=== PATIENT | male | born 1990 | race Caucasian/White ===

== ENCOUNTER 2016-06-15 21:59 | Emergency (ER) ==
[2016-06-15 21:59] VITALS: BMI 21.5
[2016-06-15 22:08] VITALS: BP 158/80; TEMP 99.3
[2016-06-15] MEDS ORDERED: ZOFRAN 4 MG/2 ML IM STA (22:22)
[2016-06-15] MEDS ORDERED: DILAUDID 1 MG/ML SYRINGE IM STA (22:22)
--- NOTE | 2016-06-15 22:25 | ED.PDOC ---
General ED Provider: Dr. CLAUDY NAVAS Chief Complaint: Headache Stated Complaint: Broken fron tooth couple days ago, started the headache, typical. Time Seen by Physician: 22:23 Mode of Arrival: Walk-In Information Source: Patient, Family Primary Care Provider: BRIAN ARREDONDO Nursing and Triage Documentation Reviewed and Agree: Yes Neurological Complaint Exam - Headache Complaint/Exam Onset: Gradual Symptoms Are: Still present Timing: Constant Worst Headache Ever: No Initial Severity: Moderate Current Severity: Moderate Location: Frontal Character: Reports: Throbbing, Radiating, Migraine Aggravating: Reports: Bright lights Alleviating: Reports: None Associated Signs and Symptoms: Denies: Dizziness, Seizure, Nausea, Vomiting, Sinus pressure, Fever, Neck pain, Neck stiffness, Decreased LOC, Visual changes Related History: Reports: Similar episode Related Surgical History: Reports: None SAH Risk Factors: Reports: None Meningitis Risk Factors: Reports: None SDH Risk Factors: Reports: None Temporal Arteritis Risk Factors: Reports: None Normal Head CT Within Last 12 Months: Yes Fundoscopic Exam: Present: Normal Findings Papilledema Present: No Temporal Artery Tenderness: Present: None Sinus Tenderness: Present: None TMJ Tenderness: Present: None Meningeal Signs Positive: No Pain on Passive Flexion-Positive Kernig's: No ROM Limited In: No Limitiations Focal Weakness: Present: None Focal Sensory Loss: Present: None Gait: Normal Nystagmus Present: No Gag Reflex Present: Yes [id number]: Normal Findings Romberg Test Positive: No Differential Diagnoses: Migraine Review of Systems - Review Of Systems Constitutional: Reports: No symptoms Eyes: Reports: No symptoms Ears, Nose, Mouth, Throat: Reports: No symptoms Respiratory: Reports: No symptoms Cardiac: Reports: No symptoms GI: Reports: No symptoms : Reports: No symptoms Musculoskeletal: Reports: No symptoms Skin: Reports: No symptoms Neurological: Reports: Headache Endocrine: Reports: No symptoms Hematologic/Lymphatic: Reports: No symptoms All Other Systems: Reviewed and Negative Past Medical History - Past Medical History Previously Healthy: Yes Endocrine: Reports: None Cardiovascular: Reports: None Respiratory: Reports: None Hematological: Reports: None Gastrointestinal: Reports: Other ( ulcerative colitis) Genitourinary: Reports: None Neuro/Psych: Reports: Migraine Musculoskeletal: Reports: None, Other (back problems,) Cancer: Reports: None Other Pertinent Past Medical History: adderall, back problems, ulcerative colitis - Surgical History General Surgical History: Reports: None - Family History Family History: Reports: None - Social History Smoking Status: Current every day smoker, Heavy tobacco smoker Hx Substance Use: No Alcohol Screening: Occasionally - Immunizations Tetanus Shot up to Date: Yes Physical Exam - Physical Exam Appearance: Ill-appearing Pain Distress: Moderate Eyes: EMMY, EOMI ENT: Ears normal, Nose normal, Oropharynx normal Respiratory: Airway patent, Breath sounds clear, Breath sounds equal, Respirations nonlabored Cardiovascular: RRR, Pulses normal, No rub, No murmur GI/: Soft, Nontender, No masses, Bowel sounds normal, No Organomegaly Musculoskeletal: Normal strength, ROM intact, No edema, No calf tenderness Skin: Warm, Dry, Normal color Neurological: Sensation intact, Motor intact, Reflexes intact, Cranial nerves intact, Alert, Oriented Psychiatric: Affect appropriate, Mood appropriate Critical Care Note - Critical Care Note Total Time (mins): 0 Course - Course Orders, Labs, Meds: Orders Category Date Time Status Hydromorphone HCl [Dilaudid 1 mg/ml Syringe] MEDS 06/15/16 22:22 Discontinued 1 mg IM ONCE STA Ondansetron HCl/Pf [Zofran 4 mg/2 ml] MEDS 06/15/16 22:22 Discontinued 4 mg IM ONCE STA Medications Discontinued Medications Generic Name Dose Route Start Last Admin Trade Name [place] PRN Reason Stop Dose Admin Hydromorphone HCl 1 mg 06/15/16 22:22 Dilaudid 1 Mg/Ml Syringe IM 06/15/16 22:23 ONCE STA Ondansetron HCl 4 mg 06/15/16 22:22 Zofran 4 Mg/2 Ml IM 06/15/16 22:23 ONCE STA Vital Signs: Temp Pulse Resp BP Pulse Ox 06/15/16 22:00 99.3 F 96 H 18 158/80 H 99 Departure - Departure Time of Disposition: 22:50 Disposition: HOME SELF-CARE Discharge Problem: Headache Instructions: Migraine Headache (ED) Condition: Stable Pt referred to PMD for follow-up: Yes Additional Instructions: keep f/u with neurologist rest If not better come back Allergies/Adverse Reactions: Allergies codeine Adverse Reaction (Verified 06/15/16 22:09) FEELS LIKE NEEDLES IN BACK OF NECK tramadol HCl [From [facility]] Adverse Reaction (Verified 01/03/16 13:54) Nausea Home Medications: Ambulatory Orders 1 [No Reported Medications] 06/15/16 Disposition Discussed With: Patient, Family
== END 2016-06-15 22:55 | disposition home or self-care (01) ==
LOC: ED 21:59
DX: G43.909 Migraine, unspecified, not intractable, without status migrainosus (principal); S02.5XXA Fracture of tooth (traumatic), initial encounter for closed fracture; F17.210 Nicotine dependence, cigarettes, uncomplicated
CPT/HCPCS: 96372; 99283

== ENCOUNTER 2016-06-16 14:32 | Emergency (ER) ==
[2016-06-16 14:32] VITALS: BMI 21.5
[2016-06-16 14:37] VITALS: BP 144/103; TEMP 99.2
--- NOTE | 2016-06-16 14:38 | ED.PDOC ---
General ED Provider: Dr. BRIONNA LR Chief Complaint: Tooth Problem Stated Complaint: dental pain Time Seen by Physician: 14:33 Mode of Arrival: Walk-In Information Source: Patient Exam Limitations: No limitations Primary Care Provider: BRIAN ARREDONDO Nursing and Triage Documentation Reviewed and Agree: Yes EENT Complaint Exam - Dental/Oral Complaint/Exam Mechanism of Injury: No known trauma Symptoms Are: Still present Timing: Intermittent Initial Severity: Moderate Current Severity: Moderate Character: Reports: Throbbing Aggravating: Reports: Heat, Cold, Chewing Alleviating: Reports: None Associated Signs and Symptoms: Denies: Swelling, Discharge, Fever, Foul odor, Foul taste in mouth Related History: Reports: Similar episode Cardiac Risk Factors: Reports: None Dental/Oral Surgical History: Reports: None Tooth Findings: Present: Gross caries, Dental fracture Cervical Lymphadenopathy Present: No Facial Swelling Present: No Bleeding Present: No Septal Hematoma: No Foreign Body Present: No Dysphagia Present: No Drooling Present: No Asymmetrical Tonsillar Swelling Present: No Uvula Midline: No Judy-tonsillar Fluctuence: No Trismus Present: No Palatal Petechiae Present: No Scarlatinaform Rash Present: No Teeth Picture: 1 - broken Review of Systems - Review Of Systems Constitutional: Reports: No symptoms Eyes: Reports: No symptoms Ears, Nose, Mouth, Throat: Reports: No symptoms Respiratory: Reports: No symptoms Cardiac: Reports: No symptoms GI: Reports: No symptoms : Reports: No symptoms Musculoskeletal: Reports: No symptoms Skin: Reports: No symptoms Neurological: Reports: No symptoms Endocrine: Reports: No symptoms Hematologic/Lymphatic: Reports: No symptoms All Other Systems: Reviewed and Negative Past Medical History - Past Medical History Previously Healthy: Yes Endocrine: Reports: None Cardiovascular: Reports: None Respiratory: Reports: None Hematological: Reports: None Gastrointestinal: Reports: Other ( ulcerative colitis) Genitourinary: Reports: None Neuro/Psych: Reports: Migraine Musculoskeletal: Reports: None, Other (back problems,) Cancer: Reports: None Other Pertinent Past Medical History: adderall, back problems, ulcerative colitis - Surgical History General Surgical History: Reports: None - Family History Family History: Reports: None - Social History Smoking Status: Current every day smoker, Heavy tobacco smoker Hx Substance Use: No Alcohol Screening: Occasionally Physical Exam - Physical Exam Appearance: Well-appearing, No pain distress, Well-nourished Eyes: EMMY, EOMI, Conjunctiva clear ENT: Ears normal, Nose normal, Oropharynx normal Respiratory: Airway patent, Breath sounds clear, Breath sounds equal, Respirations nonlabored Cardiovascular: RRR, Pulses normal, No rub, No murmur GI/: Soft, Nontender, No masses, Bowel sounds normal, No Organomegaly Musculoskeletal: Normal strength, ROM intact, No edema, No calf tenderness Skin: Warm, Dry, Normal color Neurological: Sensation intact, Motor intact, Reflexes intact, Cranial nerves intact, Alert, Oriented Psychiatric: Affect appropriate, Mood appropriate Critical Care Note - Critical Care Note Total Time (mins): 0 Course - Course Vital Signs: Temp Pulse Resp BP Pulse Ox 06/16/16 14:33 99.2 F 89 20 144/103 H 98 Departure - Departure Time of Disposition: 14:38 Disposition: HOME SELF-CARE Discharge Problem: Toothache Instructions: Toothache (ED), Dental Caries (ED) Condition: Good Pt referred to PMD for follow-up: No Allergies/Adverse Reactions: Allergies codeine Adverse Reaction (Verified 06/16/16 14:36) FEELS LIKE NEEDLES IN BACK OF NECK tramadol HCl [From [facility]] Adverse Reaction (Verified 06/16/16 14:36) Nausea Home Medications: Ambulatory Orders 1 [No Reported Medications] 06/15/16
== END 2016-06-16 14:44 | disposition home or self-care (01) ==
LOC: ED 14:32
DX: K08.89 Other specified disorders of teeth and supporting structures (principal); K02.7 Dental root caries; S02.5XXA Fracture of tooth (traumatic), initial encounter for closed fracture; F17.210 Nicotine dependence, cigarettes, uncomplicated
CPT/HCPCS: 99282

== ENCOUNTER 2016-07-25 18:23 | Emergency (ER) ==
[2016-07-25 18:32] VITALS: BP 128/82; TEMP 98.6; BMI 22.6
--- NOTE | 2016-07-25 18:44 | ED.PDOC ---
General ED Provider: Dr. VIKA KAUR JR Chief Complaint: Fever Stated Complaint: onset fever and body aches--cough-some n/v--has left ear pain- -states has been sleeping a lot[ End ]2 days 98.6 95 20 98% 128/82 510 Time Seen by Physician: 18:52 Mode of Arrival: Walk-In Information Source: Patient Exam Limitations: No limitations Nursing and Triage Documentation Reviewed and Agree: No Review of Systems - Review Of Systems Constitutional: Reports: Fever, Malaise, Weakness Eyes: Reports: No symptoms Respiratory: Reports: Cough Cardiac: Reports: No symptoms GI: Reports: No symptoms : Reports: No symptoms Musculoskeletal: Reports: Joint pain (right ankle pain for weeks - xrayed at [facility]- defer to pmd), Muscle pain, Muscle stiffness Skin: Reports: No symptoms Neurological: Reports: No symptoms Endocrine: Reports: No symptoms Hematologic/Lymphatic: Reports: No symptoms All Other Systems: Other Past Medical History - Past Medical History Previously Healthy: Yes Endocrine: Reports: None Cardiovascular: Reports: None Respiratory: Reports: None Hematological: Reports: None Gastrointestinal: Reports: Other ( ulcerative colitis) Genitourinary: Reports: None Neuro/Psych: Reports: Migraine, Bipolar Disorder, Other (ADHD ; adderall) Musculoskeletal: Reports: None, Arthritis, Back Pain (CHRONIC BACK PAIN ADHD bipolar arth), Other (back problems,) Cancer: Reports: None (CHRONIC BACK PAIN ) Other Pertinent Past Medical History: back problems, ulcerative colitis - Surgical History General Surgical History: Reports: None - Family History Family History: Reports: None - Social History Smoking Status: Current every day smoker, Heavy tobacco smoker Hx Substance Use: No Alcohol Screening: Occasionally Physical Exam - Physical Exam Appearance: Ill-appearing, Thin Ill-appearing: Mild Pain Distress: Mild Eyes: EMMY, EOMI, Conjunctiva clear ENT: Ears normal (normal on exam), Nose normal, Oropharynx normal Neck: Supple Respiratory: Airway patent, Breath sounds clear, Breath sounds equal, Respirations nonlabored Cardiovascular: RRR, Pulses normal, No rub, No murmur GI/: Soft, No masses, Bowel sounds normal, No Organomegaly, Tender (nonfocal) Musculoskeletal: Limited ROM (right ankle focal tenderness not likely a fracture no other tenderness) Skin: Warm, Dry, Normal color Neurological: Sensation intact, Motor intact, Reflexes intact, Cranial nerves intact, Alert, Oriented Critical Care Note - Critical Care Note Total Time (mins): 0 Course - Course Vital Signs: Temp Pulse Resp BP Pulse Ox 07/25/16 18:24 98.6 F 95 H 20 128/82 98 Departure - Departure Time of Disposition: 18:52 Disposition: HOME SELF-CARE Discharge Problem: URTI (acute upper respiratory infection) Instructions: Upper Respiratory Infection (ED), Viral Syndrome (ED) Condition: Good Pt referred to PMD for follow-up: Yes Additional Instructions: VIRAL SYNDROMES ARE NOT IMPROVED WITH ANTIBIOTICS- REST, INCREASE ORAL FLUIDS TYLENOL AND MOTRIN(OR NAPROSYN) FOR PAIN MAY USE ROBITUSSIN FOR COUGH AND RECOMMEND OVER THE COUNTER COLD AND FLU MEDICATIONS FOR SYMPTOMS RIGHT ANKLE IS TENDER AT SUPERIOR EDGE OF CALCANEUS Prescriptions: Naproxen [Naprosyn] 500 mg PO Q12HR PRN #30 tablet PRN Reason: PAIN Allergies/Adverse Reactions: Allergies codeine Adverse Reaction (Verified 07/25/16 18:30) FEELS LIKE NEEDLES IN BACK OF NECK tramadol HCl [From [facility]] Adverse Reaction (Verified 07/25/16 18:30) Nausea Home Medications: Ambulatory Orders Naproxen [Naprosyn] 500 mg PO Q12HR PRN #30 tablet 07/25/16
[2016-07-25] MEDS ORDERED: NAPROSYN PO STA (19:00)
== END 2016-07-25 19:12 | disposition home or self-care (01) ==
LOC: ED 18:23
DX: J06.9 Acute upper respiratory infection, unspecified (principal); B34.9 Viral infection, unspecified; M25.571 Pain in right ankle and joints of right foot; F17.210 Nicotine dependence, cigarettes, uncomplicated
CPT/HCPCS: 99282

== ENCOUNTER 2016-09-11 15:55 | Emergency (ER) ==
[2016-09-11 16:03] VITALS: BP 127/81; TEMP 97.3; BMI 22.9
--- NOTE | 2016-09-11 16:16 | ED.PDOC ---
General ED Provider: Dr. VIKA KAUR JR Chief Complaint: Tooth Problem Stated Complaint: tooth broke off this am eating a piece of toast [ End ] left upper incisor Time Seen by Physician: 16:13 Mode of Arrival: Walk-In Information Source: Patient Exam Limitations: No limitations Nursing and Triage Documentation Reviewed and Agree: No EENT Complaint Exam - Dental/Oral Complaint/Exam Tooth Findings: Present: Percussion tenderness, Gross decay, Gross caries, Dental fracture Cervical Lymphadenopathy Present: Yes Facial Swelling Present: No Bleeding Present: No Oropharynx Findings: Absent: Clots, Active bleeding Septal Hematoma: No Foreign Body Present: No Dysphagia Present: Yes Drooling Present: No Asymmetrical Tonsillar Swelling Present: No Uvula Midline: Yes Judy-tonsillar Fluctuence: No Trismus Present: Yes Palatal Petechiae Present: No Scarlatinaform Rash Present: No Teeth Picture: 1 - two teeth missing edge anterior incisor most recent injury- acute painful Review of Systems - Review Of Systems Constitutional: Reports: Malaise Eyes: Reports: No symptoms Ears, Nose, Mouth, Throat: Reports: Ear pain, Mouth pain, Throat pain Respiratory: Reports: Cough Cardiac: Reports: No symptoms GI: Reports: No symptoms : Reports: No symptoms Musculoskeletal: Reports: No symptoms Skin: Reports: No symptoms Neurological: Reports: No symptoms Endocrine: Reports: No symptoms Hematologic/Lymphatic: Reports: No symptoms All Other Systems: Other Past Medical History - Past Medical History Previously Healthy: Yes Endocrine: Reports: None Cardiovascular: Reports: None Respiratory: Reports: None Hematological: Reports: None Gastrointestinal: Reports: Other ( ulcerative colitis) Genitourinary: Reports: None Neuro/Psych: Reports: Migraine, Bipolar Disorder, Other (ADHD ; adderall) Musculoskeletal: Reports: None, Arthritis, Back Pain (CHRONIC BACK PAIN ), Other (back problems,) Cancer: Reports: None (CHRONIC BACK PAIN ) Other Pertinent Past Medical History: back problems, ulcerative colitis - Surgical History General Surgical History: Reports: None - Family History Family History: Reports: None - Social History Smoking Status: Current every day smoker, Heavy tobacco smoker Hx Substance Use: No Alcohol Screening: Occasionally Physical Exam - Physical Exam Appearance: Ill-appearing, Thin Pain Distress: Moderate Eyes: EMMY, EOMI, Conjunctiva clear ENT: Erythema (EAC's states cleaned with qtips) Neck: Supple (left ant LAD) Respiratory: Airway patent, Breath sounds clear, Breath sounds equal, Respirations nonlabored Cardiovascular: RRR, Pulses normal, No rub, No murmur GI/: Soft, Nontender, No masses, Bowel sounds normal, No Organomegaly Musculoskeletal: Normal strength, ROM intact, No edema, No calf tenderness Skin: Warm, Dry, Normal color Neurological: Sensation intact, Motor intact, Reflexes intact, Cranial nerves intact, Alert, Oriented Critical Care Note - Critical Care Note Total Time (mins): 0 Course - Course Vital Signs: Temp Pulse Resp BP Pulse Ox 09/11/16 15:57 97.3 F L 85 18 127/81 97 Departure - Departure Time of Disposition: 16:30 Disposition: HOME SELF-CARE Discharge Problem: Toothache, Pharyngitis, Otitis externa Instructions: Pharyngitis (ED), Acute Dental Trauma (ED), Toothache (ED), Otitis Externa (ED) Condition: Good Pt referred to PMD for follow-up: Yes Additional Instructions: do not place any objects in ears- clean with liquid such as glycerine antibiotic to clear infection at tooth and sore throat - ten days to eliminate any strep Naprosyn for pain - NSAIDS work best for tooth pain [place] for pain not controlled- no refills follow up with dentist as soon as possible Prescriptions: Hydrocodone Bit/Acetaminophen [[place] 5-325] 1 - 2 tab PO Q6HR PRN #12 tablet PRN Reason: pain Naproxen [Naprosyn] 500 mg PO Q12HR PRN #30 tablet PRN Reason: PAIN Cephalexin [Keflex] 500 mg PO QID #40 capsule Neomycin/Polymyxin B/Hc Otic [Cortisporin Otic Susp] 4 drop OT Q6H #1 bottle Allergies/Adverse Reactions: Allergies codeine Adverse Reaction (Verified 09/11/16 16:01) FEELS LIKE NEEDLES IN BACK OF NECK tramadol HCl [From [facility]] Adverse Reaction (Verified 09/11/16 16:01) Nausea Home Medications: Ambulatory Orders Cephalexin [Keflex] 500 mg PO QID #40 capsule 09/11/16 Hydrocodone Bit/Acetaminophen [[place] 5-325] 1 - 2 tab PO Q6HR PRN #12 tablet 05/18 Naproxen [Naprosyn] 500 mg PO Q12HR PRN #30 tablet 09/11/16 Neomycin/Polymyxin B/Hc Otic [Cortisporin Otic Susp] 4 drop OT Q6H #1 bottle 05/18
[2016-09-11 16:45] LABS: FLU INTERNAL QC INTERNAL QC VALID; RAPID FLU A NEGATIVE (NEGATIVE)
[2016-09-11 16:46] LABS: RAPID FLU B NEGATIVE (NEGATIVE)
== END 2016-09-11 16:42 | disposition home or self-care (01) ==
LOC: ED 15:55
DX: K08.89 Other specified disorders of teeth and supporting structures (principal); J02.9 Acute pharyngitis, unspecified; H60.90 Unspecified otitis externa, unspecified ear; K02.7 Dental root caries; F17.210 Nicotine dependence, cigarettes, uncomplicated
CPT/HCPCS: 87651; 87804; 87880; 99283

== ENCOUNTER 2016-10-13 14:06 | Emergency (ER) ==
[2016-10-13 14:12] VITALS: BP 140/95; TEMP 98.5; BMI 22.2
[2016-10-13] MEDS ORDERED: ZOFRAN 4 MG/2 ML IVP STA (14:22)
[2016-10-13] MEDS ORDERED: DEMEROL 25 MG/ML SYRINGE IVP STA (14:22)
[2016-10-13] MEDS ORDERED: SODIUM CHLORIDE 1,000 ML IV STA (14:22)
--- NOTE | 2016-10-13 14:26 | ED.PDOC ---
General ED Provider: Dr. CLAUDY NAVAS Chief Complaint: Abdominal Pain Stated Complaint: Hurting in the belly nausea, vomiting, not able to keep anything down, has h/o colitis in the past, and recetly roomate had c,diff. Time Seen by Physician: 14:23 Mode of Arrival: Walk-In Information Source: Patient Primary Care Provider: CLAUDY NAVAS-[facility] Nursing and Triage Documentation Reviewed and Agree: Yes GI Complaint Exam - Abdominal Pain Complaint/Exam Onset: Gradual Symptoms Are: Still present Timing: Constant Initial Severity: Moderate Current Severity: Moderate Location of Pain: Discrete Character: Reports: Dull, Aching Aggravating: Reports: Movement Alleviating: Reports: None Associated Signs and Symptoms: Reports: Nausea, Vomiting, Diarrhea. Denies: Diaphoresis, Fever, Cough, Chest pain, Dizziness, Back pain, Constipation, Blood in stool, Dysuria, Urinary frequency, Decreased urine output, Decreased appetite, Discharge, Decreased activity Related History: Reports: Similar episode AAA Risk Factors: Reports: None Cardiac Risk Factors: Reports: None Testicular Torsion Risk Factors: Reports: None Surgical Obstruction Risk Factors: Reports: None Related Surgical History: Reports: None Abdominal Findings: Absent: Pulsatile mass, Abdominal distention, Unequal femoral pulses Differential Diagnoses: Pancreatitis, Irritable Bowel Syndrome, Renal Colic, Other (colitis) Review of Systems - Review Of Systems Constitutional: Reports: Malaise, Weakness Eyes: Reports: No symptoms Ears, Nose, Mouth, Throat: Reports: No symptoms Respiratory: Reports: No symptoms Cardiac: Reports: No symptoms GI: Reports: Abdomen distended, Abdominal pain, Diarrhea, Vomiting : Reports: No symptoms Musculoskeletal: Reports: No symptoms Skin: Reports: No symptoms Neurological: Reports: No symptoms Endocrine: Reports: No symptoms Hematologic/Lymphatic: Reports: No symptoms All Other Systems: Reviewed and Negative Past Medical History - Past Medical History Previously Healthy: Yes Endocrine: Reports: None Cardiovascular: Reports: None Respiratory: Reports: None Hematological: Reports: None Gastrointestinal: Reports: Other ( ulcerative colitis) Genitourinary: Reports: None Neuro/Psych: Reports: Migraine, Bipolar Disorder, Other (ADHD ; adderall) Musculoskeletal: Reports: None, Arthritis, Back Pain (CHRONIC BACK PAIN ), Other (back problems,) Cancer: Reports: None (CHRONIC BACK PAIN ) Other Pertinent Past Medical History: back problems, ulcerative colitis - Surgical History General Surgical History: Reports: None - Family History Family History: Reports: None - Social History Smoking Status: Current every day smoker, Heavy tobacco smoker Smoking Cessation Counseling Time: > 10 min Hx Substance Use: No Alcohol Screening: Occasionally - Immunizations Tetanus Shot up to Date: Yes Physical Exam - Physical Exam Appearance: Ill-appearing, Well-nourished Ill-appearing: Moderate Pain Distress: Severe Eyes: EMMY, EOMI, Conjunctiva clear ENT: Ears normal, Nose normal, Oropharynx normal Respiratory: Airway patent, Breath sounds clear, Breath sounds equal, Respirations nonlabored Cardiovascular: RRR, Pulses normal, No rub, No murmur GI/: Soft, Tender, Bowel sounds hypoactive Musculoskeletal: Normal strength, ROM intact, No edema, No calf tenderness Skin: Warm, Dry, Normal color Neurological: Sensation intact, Motor intact, Reflexes intact, Cranial nerves intact, Alert, Oriented Psychiatric: Affect appropriate, Mood appropriate Interpretation - Radiology Interpretation Radiology Interpretation By: Radiologist Radiology Results: Positive Exam Interpreted: CT Scan Critical Care Note - Critical Care Note Total Time (mins): 0 Course - Course Hematology/Chemistry: 10/13/16 14:20 10/13/16 14:20 Orders, Labs, Meds: Lab Review 10/13/16 14:20 WBC 7.34 RBC 5.34 Hgb 15.5 Hct 45.5 MCV 85.2 MCH 29.0 MCHC 34.1 RDW Coeff of Gerard 12.3 Plt Count 285 Immature Gran % (Auto) 0.3 Neut % (Auto) 62.9 Lymph % (Auto) 29.3 [place] % (Auto) 6.0 Eos % (Auto) 0.5 Baso % (Auto) 1.0 Immature Gran # (Auto) 0.0 Neut # 4.6 Lymph # 2.2 [place]haw # 0.4 Eos # 0.0 Baso # 0.1 Sodium 140 Potassium 3.7 Chloride 106 Carbon Dioxide 25 Anion Gap 12.7 BUN 9 Creatinine 1.04 Estimated GFR (MDRD) 86.00 BUN/Creatinine Ratio 8.65 Glucose 87 Calcium 9.3 Total Bilirubin 0.71 AST 20 ALT 15 Alkaline Phosphatase 98 Total Protein 6.9 Albumin 4.0 Globulin 2.9 Albumin/Globulin Ratio 1.38 Amylase 63 Lipase 10 Orders Category Date Time Status ED IV/MEDIPORT/POWERPORT .ONCE EMERGENCY 10/13/16 14:22 Active AMYLASE Stat LAB 10/13/16 14:20 Completed CBC W/ AUTO DIFF Stat LAB 10/13/16 14:20 Completed COMPREHENSIVE METABOLIC PANEL Stat LAB 10/13/16 14:20 Completed LIPASE Stat LAB 10/13/16 14:20 Completed 0.9 % Sodium Chloride [Saline Flush] MEDS 10/13/16 14:22 Ordered 1 syr IVF PRN PRN Meperidine HCl/Pf [Demerol 25 mg/ml Syringe] MEDS 10/13/16 14:22 Discontinued 25 mg IVP ONCE STA Ondansetron HCl/Pf [Zofran 4 mg/2 ml] MEDS 10/13/16 14:22 Discontinued 4 mg IVP ONCE STA Sodium Chloride 0.9% [Sodium Chloride] 1,000 ml MEDS 10/13/16 14:22 Active IV 125 mls/hr Tamsulosin HCl [Flomax] MEDS 10/13/16 15:30 Discontinued 0.4 mg PO ONCE STA CT ABDOMEN/PELVIS WO CONTRAST Stat RADS 10/13/16 14:22 Completed Medications Generic Name Dose Route Start Last Admin Trade Name Freq PRN Reason Stop Dose Admin Sodium Chloride 1,000 mls @ 125 mls/hr 10/13/16 14:22 10/13/16 14:36 Sodium Chloride IV 10/13/16 22:21 125 mls/hr .Q8H STA Administration Sodium Chloride 1 syr 10/13/16 14:22 10/13/16 14:36 Saline Flush IVF 1 syr PRN PRN Administration To flush IV Discontinued Medications Generic Name Dose Route Start Last Admin Trade Name Freq PRN Reason Stop Dose Admin Meperidine HCl 25 mg 10/13/16 14:22 10/13/16 14:36 Demerol 25 Mg/Ml Syringe IVP 10/13/16 14:23 25 mg ONCE STA Administration Ondansetron HCl 4 mg 10/13/16 14:22 10/13/16 14:36 Zofran 4 Mg/2 Ml IVP 10/13/16 14:23 4 mg ONCE STA Administration Tamsulosin HCl 0.4 mg 10/13/16 15:30 Flomax PO 10/13/16 15:31 ONCE STA Vital Signs: Temp Pulse Resp BP Pulse Ox 10/13/16 14:07 98.5 F 104 H 18 140/95 H 96 Departure - Departure Time of Disposition: 15:41 Disposition: HOME SELF-CARE Discharge Problem: Urolithiasis Qualifiers: Urinary calculus location: ureter Qualifier Code: (N20.1) Calculus of ureter Instructions: Renal Colic (ED) Condition: Stable Pt referred to PMD for follow-up: Yes Additional Instructions: Increase hydration Tylenol prn Prescriptions: Hydrocodone/Acetaminophen [[place] 5-325 Tablet] 1 tab PO TID PRN #12 tablet PRN Reason: PAIN Tamsulosin HCl [Flomax] 0.4 mg PO DAILY #10 cap.er.24h Allergies/Adverse Reactions: Allergies codeine Adverse Reaction (Verified 10/13/16 14:12) FEELS LIKE NEEDLES IN BACK OF NECK tramadol HCl [From [facility]] Adverse Reaction (Verified 10/13/16 14:12) Nausea Home Medications: Ambulatory Orders Hydrocodone/Acetaminophen [[place] 5-325 Tablet] 1 tab PO TID PRN #12 tablet 10/13 Tamsulosin HCl [Flomax] 0.4 mg PO DAILY #10 cap.er.24h 10/13/16 Disposition Discussed With: Patient, Family
[2016-10-13 14:32] LABS: BASOPHILS # (AUTO) 0.1 K/uL (0-0.2); EOSINOPHILS % (AUTO) 0.5 % (0.0-7.0); HEMATOCRIT 45.5 % (42.0-52.0); HEMOGLOBIN 15.5 g/dl (14.0-18.0); IMMATURE GRANULOCYTE % (AUTO) 0.3 % (0.0-5.0); LYMPHOCYTES # (AUTO) 2.2 K/uL (0.60-3.4); LYMPHOCYTES % (AUTO) 29.3 (10.0-50.0); MEAN CORPUSCULAR HGB CONC 34.1 (31.8-35.4); MEAN CORPUSCULAR VOLUME 85.2 fl (80.0-94.0); MONOCYTES # (AUTO) 0.4 K/uL (0.4-2.0); NEUTROPHILS # (AUTO) 4.6 K/ul (2.0-6.9); NEUTROPHILS % (AUTO) 62.9; PLATELET COUNT 285 10^3/uL (140-440); RED BLOOD COUNT 5.34 10^6/ul (4.70-6.10); WHITE BLOOD COUNT 7.34 K/ul (4.2-10.2)
[2016-10-13 14:52] LABS: ALBUMIN/GLOBULIN RATIO 1.38; ANION GAP 12.7; BILIRUBIN,TOTAL 0.71 mg/dL (0.00-1.20); BUN/CREATININE RATIO 8.65; CALCIUM 9.3 mg/dL (8.2-10.2); CREATININE 1.04 mg/dL (0.60-1.10); POTASSIUM 3.7 mmol/L (3.5-5.1); TOTAL PROTEIN 6.9 g/dL (6.4-8.2)
--- NOTE | 2016-10-13 15:24 | CT ---
EXAM: CT of the abdomen and pelvis without contrast. HISTORY: Abdominal pain. Diarrhea. Vomiting. PROCEDURE: Contiguous axial CT images of the abdomen and pelvis without contrast with coronal and s agittal reformats. FINDINGS: The liver, gallbladder, pancreas, spleen, adrenal glands and kidneys are normal in appeara nce. There is a 0.2 cm calcification in the proximal right ureter. No hydronephrosis or hydroureter . The abdominal aorta is normal in appearance. The appendix is normal in appearance. There is dive rticulosis of the colon with no evidence of diverticulitis. No free fluid or free air in the abdome n or pelvis. The bladder is adequately filled with no abnormality identified. The seminal vesicles and prostate gland are unremarkable. The bones and soft tissues are unremarkable. Impression: Right ureterolithiasis as described. No hydronephrosis or hydroureter.
[2016-10-13] MEDS ORDERED: FLOMAX PO STA (15:30)
== END 2016-10-13 15:50 | disposition home or self-care (01) ==
LOC: ED 14:06
DX: N20.1 Calculus of ureter (principal); F17.210 Nicotine dependence, cigarettes, uncomplicated
CPT/HCPCS: 36415; 80053; 82150; 83690; 85025; 96361; 96374; 96375; 99283

== ENCOUNTER 2016-10-26 15:14 | Emergency (ER) ==
[2016-10-26 15:20] VITALS: BP 135/79; TEMP 97.5; BMI 22.3
[2016-10-26 15:56] LABS: BILIRUBIN,URINE Negative (NEGATIVE); KETONES,URINE Negative (NEGATIVE); LEUKOCYTE ESTERASE ,URINE Negative (NEGATIVE); NITRITE,URINE Negative (NEGATIVE); PH,URINE 8.5 (5-9); PROTEIN,URINE Negative (NEGATIVE); URINE, BLOOD Negative (NEGATIVE)
[2016-10-26 15:57] LABS: ADD URINE MICROSCOPIC NO
[2016-10-26] MEDS: TORADOL IM STA (16:08)
[2016-10-26] MEDS: ZOFRAN 4 MG/2 ML IM STA (16:09)
--- NOTE | 2016-10-26 16:16 | CT ---
EXAM: CT scan of the abdomen and pelvis without contrast HISTORY: Bilateral flank pain, previous history of kidney stone. TECHNIQUE: Imaging of the abdomen pelvis was performed without contrast. 3 mm thin axial images an d coronal and sagittal reconstructions were provided for interpretation. Comparison CT scan of the abdomen and pelvis dated 10/13/2016. FINDINGS: The liver, spleen, pancreas, adrenal glands appear normal. The proximal ureters are norm al size. No ureteral calcifications are seen. The previously noted proximal right ureteral calculus is no longer seen. There is a tiny nonobstructing calculus seen within the inferior pole of the righ t kidney. The small and large bowel loops are normal caliber. There is no free air. No acute abno rmalities are seen within the anterior abdominal wall. The appendix appears normal. The helical images obtained through the pelvis demonstrate a normal appearance of the rectum, urinar y bladder. There is no free fluid seen within the pelvis. No retroperitoneal abnormalities are see n. Lung bases are clear. No lytic or blastic lesions are seen within the osseous structures. IMPRESSION: There is no obstructing ureteral calculi. There is no bowel obstruction or acute inflammatory change seen within the abdomen and pelvis.
--- NOTE | 2016-10-26 16:43 | ED.PDOC ---
General ED Provider: Dr. CLAUDY NAVAS Chief Complaint: Back Pain Stated Complaint: Been hurting in the rt side of the abdomen, was here 10 days ago, found to have renal stones. says he did not pass, it. has f/u with urologist next week Time Seen by Physician: 16:41 Mode of Arrival: Walk-In Information Source: Patient Nursing and Triage Documentation Reviewed and Agree: Yes GI Complaint Exam - Abdominal Pain Complaint/Exam Onset: Gradual Symptoms Are: Still present Timing: Constant Initial Severity: Moderate Current Severity: Moderate Location of Pain: Discrete, RLQ Radiates To: Reports: Back, Flank Character: Reports: Dull, Aching Aggravating: Reports: None Alleviating: Reports: None Associated Signs and Symptoms: Reports: Nausea. Denies: Diaphoresis, Fever, Cough, Chest pain, Dizziness, Back pain, Constipation, Blood in stool, Dysuria, Urinary frequency, Decreased urine output, Decreased appetite, Discharge, Vomiting, Diarrhea, Decreased activity Related History: Reports: Similar episode AAA Risk Factors: Reports: None Cardiac Risk Factors: Reports: None Testicular Torsion Risk Factors: Reports: None Surgical Obstruction Risk Factors: Reports: None Related Surgical History: Reports: None Abdominal Findings: Absent: Pulsatile mass, Abdominal distention, Unequal femoral pulses, Rebound tenderness Differential Diagnoses: Renal Colic Review of Systems - Review Of Systems Constitutional: Reports: No symptoms Eyes: Reports: No symptoms Ears, Nose, Mouth, Throat: Reports: No symptoms Respiratory: Reports: No symptoms Cardiac: Reports: No symptoms : Reports: No symptoms Musculoskeletal: Reports: No symptoms Skin: Reports: No symptoms Neurological: Reports: No symptoms Endocrine: Reports: No symptoms Hematologic/Lymphatic: Reports: No symptoms All Other Systems: Reviewed and Negative Past Medical History - Past Medical History Previously Healthy: Yes Endocrine: Reports: None Cardiovascular: Reports: None Respiratory: Reports: None Hematological: Reports: None Gastrointestinal: Reports: Other ( ulcerative colitis) Genitourinary: Reports: None Neuro/Psych: Reports: Migraine, Bipolar Disorder, Other (ADHD ; adderall) Musculoskeletal: Reports: None, Arthritis, Back Pain (CHRONIC BACK PAIN ), Other (back problems,) Cancer: Reports: None (CHRONIC BACK PAIN ) Other Pertinent Past Medical History: back problems, ulcerative colitis - Surgical History General Surgical History: Reports: None - Family History Family History: Reports: None - Social History Smoking Status: Current every day smoker Smoking Cessation Counseling Time: > 3 min - 10 min Hx Substance Use: No Alcohol Screening: None - Immunizations Tetanus Shot up to Date: Yes Physical Exam - Physical Exam Appearance: Well-appearing, Well-nourished Pain Distress: Moderate Eyes: EMMY, EOMI, Conjunctiva clear ENT: Ears normal, Nose normal, Oropharynx normal Respiratory: Airway patent, Breath sounds clear, Breath sounds equal, Respirations nonlabored Cardiovascular: RRR, Pulses normal, No rub, No murmur GI/: Soft, No masses, Bowel sounds normal, No Organomegaly, Tender Musculoskeletal: Normal strength, ROM intact, No edema, No calf tenderness Skin: Warm, Dry, Normal color Neurological: Sensation intact, Motor intact, Reflexes intact, Cranial nerves intact, Alert, Oriented Psychiatric: Affect appropriate, Mood appropriate Critical Care Note - Critical Care Note Total Time (mins): 0 Course - Course Orders, Labs, Meds: Lab Review 10/26/16 15:45 Urine Color Yellow Urine Clarity Clear Urine pH 8.5 Ur Specific Tama 1.015 Urine Protein Negative Urine Glucose (UA) Negative Urine Ketones Negative Urine Blood Negative Urine Nitrite Negative Urine Bilirubin Negative Urine Urobilinogen 0.2 Ur Leukocyte Esterase Negative Orders Category Date Time Status URINALYSIS C & S IF INDICATED Stat LAB 10/26/16 15:45 Completed Ketorolac Tromethamine [Toradol] MEDS 10/26/16 15:59 Discontinued 60 mg IM ONCE STA Ondansetron HCl/Pf [Zofran 4 mg/2 ml] MEDS 10/26/16 15:59 Discontinued 4 mg IM ONCE STA CT ABDOMEN/PELVIS WO CONTRAST Stat RADS 10/26/16 15:48 Completed Medications Discontinued Medications Generic Name Dose Route Start Last Admin Trade Name Freq PRN Reason Stop Dose Admin Ketorolac Tromethamine 60 mg 10/26/16 15:59 10/26/16 16:08 Toradol IM 10/26/16 16:00 60 mg ONCE STA Administration Ondansetron HCl 4 mg 10/26/16 15:59 10/26/16 16:09 Zofran 4 Mg/2 Ml IM 10/26/16 16:00 4 mg ONCE STA Administration Vital Signs: Temp Pulse Resp BP Pulse Ox 10/26/16 15:14 97.5 F L 95 H 16 135/79 96 Departure - Departure Time of Disposition: 16:53 Disposition: HOME SELF-CARE Discharge Problem: Renal colic on right side Instructions: Renal Colic (ED) Condition: Stable Pt referred to PMD for follow-up: Yes (urologist) Additional Instructions: increase hydration keep f/u Prescriptions: Hydrocodone/Acetaminophen [[place] 5-325 Tablet] 1 tab PO TID PRN #12 tablet PRN Reason: PAIN Tamsulosin HCl [Flomax] 0.4 mg PO DAILY #10 cap.er.24h Allergies/Adverse Reactions: Allergies codeine Adverse Reaction (Verified 10/26/16 15:23) FEELS LIKE NEEDLES IN BACK OF NECK tramadol HCl [From Ultra] Adverse Reaction (Verified 10/26/16 15:23) Nausea Home Medications: Ambulatory Orders Hydrocodone/Acetaminophen [[place] 5-325 Tablet] 1 tab PO TID PRN #12 tablet 10/26 Tamsulosin HCl [Flomax] 0.4 mg PO DAILY #10 cap.er.24h 10/26/16 Disposition Discussed With: Patient, Family
== END 2016-10-26 17:04 | disposition home or self-care (01) ==
LOC: ED 15:14
DX: N20.0 Calculus of kidney (principal); R10.31 Right lower quadrant pain; R11.0 Nausea; Z87.442 Personal history of urinary calculi; M54.89 Other dorsalgia; F17.200 Nicotine dependence, unspecified, uncomplicated
CPT/HCPCS: 81001; 96372; 99283

== ENCOUNTER 2016-11-24 03:16 | Emergency (ER) ==
[2016-11-24 03:22] VITALS: BP 143/89; TEMP 97.1; BMI 21.6
[2016-11-24] MEDS ORDERED: PHENERGAN 25 MG/ML VIAL IM STA (03:38)
[2016-11-24] MEDS ORDERED: TORADOL IM STA (03:38)
[2016-11-24 04:29] LABS: ERYTHROCYTE SEDIMENTATION RATE 8 mm/hr (0-15); ESR INTERNAL QC INTERNAL QC VALID
--- NOTE | 2016-11-24 04:43 | CT ---
EXAM: CT scan brain without contrast HISTORY: Headache COMPARISON: CT scan brain 01/23/2016 FINDINGS: Contiguous axial images were obtained from the skull base to the convexities without cont rast utilizing 5-mm collimation. Sagittal and coronal reconstructions were imaged and reviewed. The ventricles and CSF spaces are within normal limits. There are no acute intracranial findings. The visualized paranasal sinuses and mastoid air cells are clear. IMPRESSION: No acute intracranial findings
[2016-11-24] MEDS ORDERED: STADOL IM STA (04:56)
--- NOTE | 2016-11-24 05:00 | ED.PDOC ---
General ED Provider: Dr. SUZI VERDIN-ER Chief Complaint: Headache Stated Complaint: margarita got a migraine Time Seen by Physician: 03:20 Mode of Arrival: Walk-In Information Source: Patient, Family Exam Limitations: No limitations Nursing and Triage Documentation Reviewed and Agree: Yes Neurological Complaint Exam - Headache Complaint/Exam Onset: Gradual Duration: several hours Symptoms Are: Still present Worst Headache Ever: No Initial Severity: Mild Current Severity: Moderate Location: Left, Frontal, Temporal Character: Reports: Dull, Throbbing, Typical headache, Migraine Aggravating: Reports: Bright lights Alleviating: Reports: None Associated Signs and Symptoms: Reports: Nausea. Denies: Dizziness, Seizure, Vomiting, Sinus pressure, Fever, Neck pain, Neck stiffness, Decreased LOC, Visual changes Related History: Reports: Similar episode. Denies: Recent trauma, Remote trauma Related Surgical History: Reports: None SAH Risk Factors: Reports: None Meningitis Risk Factors: Reports: None SDH Risk Factors: Reports: Male Temporal Arteritis Risk Factors: Reports: Normal Head CT Within Last 12 Months: No Fundoscopic Exam: Present: Normal Findings Papilledema Present: No Temporal Artery Tenderness: Present: None Sinus Tenderness: Present: None TMJ Tenderness: Present: None Glascow Coma Scale (see protocol): 15 Meningeal Signs Positive: No Pain on Passive Flexion-Positive Kernig's: No ROM Limited In: No Limitiations Focal Weakness: Present: None Focal Sensory Loss: Present: None Nystagmus Present: No Gag Reflex Present: No [id number]: Normal Findings Romberg Test Positive: No Babinski Sign: Negative Right, Negative Left Heel to Toe Normal: Yes Differential Diagnoses: Migraine Review of Systems - Review Of Systems Constitutional: Reports: No symptoms Eyes: Reports: No symptoms Ears, Nose, Mouth, Throat: Reports: No symptoms Respiratory: Reports: No symptoms Cardiac: Reports: No symptoms GI: Reports: Nausea : Reports: No symptoms Musculoskeletal: Reports: No symptoms Skin: Reports: No symptoms Neurological: Reports: Headache Endocrine: Reports: No symptoms Hematologic/Lymphatic: Reports: No symptoms All Other Systems: Reviewed and Negative Past Medical History - Past Medical History Previously Healthy: Yes Endocrine: Reports: None Cardiovascular: Reports: None Respiratory: Reports: None Hematological: Reports: None Gastrointestinal: Reports: Other ( ulcerative colitis) Genitourinary: Reports: None Neuro/Psych: Reports: Migraine, Bipolar Disorder, Other (ADHD ; adderall) Musculoskeletal: Reports: None, Arthritis, Back Pain (CHRONIC BACK PAIN ), Other (back problems,) Cancer: Reports: None (CHRONIC BACK PAIN ) Other Pertinent Past Medical History: back problems, ulcerative colitis - Surgical History General Surgical History: Reports: None - Family History Family History: Reports: None - Social History Smoking Status: Current every day smoker Hx Substance Use: No Alcohol Screening: None - Immunizations Tetanus Shot up to Date: Yes Physical Exam - Physical Exam Appearance: Well-appearing, No pain distress, Well-nourished Pain Distress: Mild Eyes: EMMY ENT: Ears normal, Nose normal, Oropharynx normal Neck: Supple Respiratory: Airway patent, Breath sounds clear, Breath sounds equal, Respirations nonlabored Cardiovascular: RRR, Pulses normal, No rub, No murmur GI/: Soft, Nontender, No masses, Bowel sounds normal, No Organomegaly Musculoskeletal: Normal strength, ROM intact, No edema, No calf tenderness Skin: Warm, Dry, Normal color Neurological: Sensation intact, Motor intact, Reflexes intact, Cranial nerves intact, Alert, Oriented Psychiatric: Affect appropriate Interpretation - Radiology Interpretation Radiology Interpretation By: Radiologist Radiology Results: Negative Exam Interpreted: CT Scan Re-Evaluation - Re-Evaluation Time of Re-Evaluation: 05:30 Status: Improved Vital Signs Stable: Yes Pain Level: 0 Appearance: NAD Lungs: Clear Skin: Warm and Dry Neuro: Alert and Oriented X3 CV: RRR Critical Care Note - Critical Care Note Total Time (mins): 0 Course - Course Orders, Labs, Meds: Lab Review 11/24/16 03:50 ESR 8 Orders Category Date Time Status ESR Stat LAB 11/24/16 03:50 Completed Butorphanol Tartrate [Stadol] MEDS 11/24/16 04:56 Stat 2 mg IM ONCE STA Ketorolac Tromethamine [Toradol] MEDS 11/24/16 03:38 Discontinued 60 mg IM ONCE STA Promethazine HCl [Phenergan 25 mg/ml Vial] MEDS 11/24/16 03:38 Discontinued 25 mg IM ONCE STA CT HEAD W/O CONTRAST Stat RADS 11/24/16 03:39 Completed Medications Generic Name Dose Route Start Last Admin Trade Name Freq PRN Reason Stop Dose Admin Butorphanol Tartrate 2 mg 11/24/16 04:56 Stadol IM 11/24/16 04:57 ONCE STA Discontinued Medications Generic Name Dose Route Start Last Admin Trade Name [place] PRN Reason Stop Dose Admin Ketorolac Tromethamine 60 mg 11/24/16 03:38 11/24/16 03:47 Toradol IM 11/24/16 03:39 60 mg ONCE STA Administration Promethazine HCl 25 mg 11/24/16 03:38 11/24/16 03:47 Phenergan 25 Mg/Ml Vial IM 11/24/16 03:39 25 mg ONCE STA Administration Vital Signs: Temp Pulse Resp BP Pulse Ox 11/24/16 03:16 97.1 F L 58 L 18 143/89 H 98 Departure - Departure Time of Disposition: 05:00 Disposition: HOME SELF-CARE Discharge Problem: Migraine headache Qualifiers: Migraine type: unspecified Status migrainosus presence: without status migrainosus Intractability: not intractable Qualifier Code: (G43.909) Migraine, unspecified, not intractable, without status migrainosus Instructions: Migraine Headache (ED) Condition: Good Pt referred to PMD for follow-up: Yes Additional Instructions: f/u wiht pcp Allergies/Adverse Reactions: Allergies codeine Adverse Reaction (Verified 10/26/16 15:23) FEELS LIKE NEEDLES IN BACK OF NECK tramadol HCl [From Ultram] Adverse Reaction (Verified 10/26/16 15:23) Nausea Home Medications: Ambulatory Orders 1 [No Reported Medications] 11/24/16 Disposition Discussed With: Patient, Family
== END 2016-11-24 05:30 | disposition home or self-care (01) ==
LOC: ED 03:16
DX: G43.909 Migraine, unspecified, not intractable, without status migrainosus (principal); F17.210 Nicotine dependence, cigarettes, uncomplicated
CPT/HCPCS: 36415; 85651; 96372; 99283

== ENCOUNTER 2016-11-28 10:58 | Emergency (ER) ==
[2016-11-28 11:04] VITALS: BP 138/98; TEMP 98.3; BMI 21.6
--- NOTE | 2016-11-28 12:25 | DI ---
EXAM: Left hand three-view HISTORY: Injury COMPARISON: None FINDINGS: The bones are normal. The joints are normal. No focal soft tissue abnormality. IMPERSSION: Normal examination.
--- NOTE | 2016-11-28 12:27 | ED.PDOC ---
General ED Provider: Dr. BRIONNA LR Chief Complaint: Finger Pain/Injury Stated Complaint: HAND AND WRIST INJURY Time Seen by Physician: 11:00 (SEEN WITH STAFF AT ALL TIMES ) Mode of Arrival: Walk-In Information Source: Patient Exam Limitations: No limitations Nursing and Triage Documentation Reviewed and Agree: Yes Musculoskeletal Complaint Exam - Hand/Wrist Complaint/Exam Location of Pain: Reports: Left, Hand, Wrist Mechanism of Injury: Reports: Trauma Onset/Duration: BLUNT [place]CE Symptoms Are: Still present Onset of Pain: Reports: Hours Initial Severity: Moderate Current Severity: Moderate Location: Reports: Discrete Character: Reports: Aching Alleviating: Reports: Rest Aggravating: Reports: None Associated Signs and Symptoms: Denies: Swelling, Redness, Bruising, Fever, Weakness, Numbness, Tingling Tenderness: Present: Radius. Absent: Snuff box, Carpal, Metacarpal, Phalanx Differential Diagnoses: Closed Fracture, Sprain, Strain Review of Systems - Review Of Systems Constitutional: Reports: No symptoms Eyes: Reports: No symptoms Ears, Nose, Mouth, Throat: Reports: No symptoms Respiratory: Reports: No symptoms Cardiac: Reports: No symptoms GI: Reports: No symptoms : Reports: No symptoms Musculoskeletal: Reports: Joint pain Skin: Reports: No symptoms Neurological: Reports: No symptoms Endocrine: Reports: No symptoms Hematologic/Lymphatic: Reports: No symptoms All Other Systems: Reviewed and Negative Past Medical History - Past Medical History Previously Healthy: Yes Endocrine: Reports: None Cardiovascular: Reports: None Respiratory: Reports: None Hematological: Reports: None Gastrointestinal: Reports: Other ( ulcerative colitis) Genitourinary: Reports: None Neuro/Psych: Reports: Migraine, Bipolar Disorder, Other (ADHD ; adderall) Musculoskeletal: Reports: None, Arthritis, Back Pain (CHRONIC BACK PAIN ), Other (back problems,) Cancer: Reports: None (CHRONIC BACK PAIN ) Other Pertinent Past Medical History: back problems, ulcerative colitis - Surgical History General Surgical History: Reports: None - Family History Family History: Reports: None - Social History Smoking Status: Current every day smoker Hx Substance Use: No Alcohol Screening: None Physical Exam - Physical Exam Appearance: Well-appearing, No pain distress, Well-nourished Eyes: EMMY, EOMI, Conjunctiva clear ENT: Ears normal, Nose normal, Oropharynx normal Respiratory: Airway patent, Breath sounds clear, Breath sounds equal, Respirations nonlabored Cardiovascular: RRR, Pulses normal, No rub, No murmur GI/: Soft, Nontender, No masses, Bowel sounds normal, No Organomegaly Musculoskeletal: Normal strength, ROM intact, No edema, No calf tenderness Skin: Warm, Dry, Normal color Neurological: Sensation intact, Motor intact, Reflexes intact, Cranial nerves intact, Alert, Oriented Psychiatric: Affect appropriate, Mood appropriate Interpretation - Radiology Interpretation Radiology Interpretation By: Radiologist Radiology Results: No acute changes Critical Care Note - Critical Care Note Total Time (mins): 0 Course - Course Orders, Labs, Meds: Orders Category Date Time Status HAND, LEFT 3 VIEWS Stat RADS 11/28/16 11:50 Taken WRIST, LEFT 3 VIEWS Stat RADS 11/28/16 11:51 Taken Vital Signs: Temp Pulse Resp BP Pulse Ox 11/28/16 10:59 98.3 F 96 H 16 138/98 H 97 Departure - Departure Time of Disposition: 12:27 Disposition: HOME SELF-CARE Discharge Problem: Injury of finger Sprain of right hand Qualifiers: Encounter type: initial encounter Qualifier Code: (S63.91XA) Sprain of unspecified part of right wrist and hand, initial encounter Instructions: Sprain (ED) Condition: Good Pt referred to PMD for follow-up: No Additional Instructions: Please call your Family Physician as soon as possible to schedule a follow-up appointment. Allergies/Adverse Reactions: Allergies codeine Adverse Reaction (Verified 11/28/16 11:04) FEELS LIKE NEEDLES IN BACK OF NECK tramadol HCl [From Ultram] Adverse Reaction (Verified 11/28/16 11:04) Nausea Home Medications: Ambulatory Orders 1 [No Reported Medications] 11/24/16 Disposition Discussed With: Patient
--- NOTE | 2016-11-28 12:28 | DI ---
EXAM: Radiographs, left wrist HISTORY: Initial presentation for left wrist injury. COMPARISON: None available. TECHNIQUE: Three views. FINDINGS: Bone mineralization is normal. There is no fracture or dislocation. The joint spaces ar e maintained. No focal soft tissue abnormality is seen. IMPRESSION: No fracture or dislocation.
== END 2016-11-28 12:35 | disposition home or self-care (01) ==
LOC: ED 10:58
DX: S63.91XA Sprain of unspecified part of right wrist and hand, initial encounter (principal); S69.92XA Unspecified injury of left wrist, hand and finger(s), initial encounter; W22.8XXA Striking against or struck by other objects, initial encounter; F17.210 Nicotine dependence, cigarettes, uncomplicated
CPT/HCPCS: 99283

== ENCOUNTER 2017-01-16 19:33 | Emergency (ER) ==
[2017-01-16 19:37] VITALS: BP 155/94; TEMP 97.1; BMI 22.9
--- NOTE | 2017-01-16 19:43 | ED.PDOC ---
General ED Provider: Dr. SUZI VERDIN-ER Chief Complaint: Tooth Problem Stated Complaint: my tooth hurts Time Seen by Physician: 19:41 Mode of Arrival: Walk-In Information Source: Patient, Family Exam Limitations: No limitations [facility] Provider[facility] Nursing and Triage Documentation Reviewed and Agree: Yes EENT Complaint Exam - Dental/Oral Complaint/Exam Mechanism of Injury: No known trauma Onset/Duration: 24hrs Symptoms Are: Still present Timing: Constant Initial Severity: Mild Current Severity: Mild Location: right upper incisor Character: Reports: Dull, Aching, Throbbing Aggravating: Reports: Heat, Cold, Chewing Associated Signs and Symptoms: Reports: Swelling. Denies: Discharge, Fever, Foul odor, Foul taste in mouth Related History: Reports: Similar episode Cardiac Risk Factors: Reports: None Dental/Oral Surgical History: Reports: None Tooth Findings: Present: Percussion tenderness, Gross caries Cervical Lymphadenopathy Present: No Facial Swelling Present: No Bleeding Present: No Oropharynx Findings: Absent: Clots, Active bleeding Asymmetrical Tonsillar Swelling Present: No Uvula Midline: No Judy-tonsillar Fluctuence: No Trismus Present: No Palatal Petechiae Present: No Scarlatinaform Rash Present: No Differential Diagnoses: Dental Abcess, Dental Caries Review of Systems - Review Of Systems Constitutional: Reports: No symptoms Eyes: Reports: No symptoms Ears, Nose, Mouth, Throat: Reports: Mouth pain Respiratory: Reports: No symptoms Cardiac: Reports: No symptoms GI: Reports: No symptoms : Reports: No symptoms Musculoskeletal: Reports: No symptoms Skin: Reports: No symptoms Neurological: Reports: No symptoms Endocrine: Reports: No symptoms Hematologic/Lymphatic: Reports: No symptoms All Other Systems: Reviewed and Negative Past Medical History - Past Medical History Previously Healthy: Yes Endocrine: Reports: None Cardiovascular: Reports: None Respiratory: Reports: None Hematological: Reports: None Gastrointestinal: Reports: Other ( ulcerative colitis) Genitourinary: Reports: None Neuro/Psych: Reports: Migraine, Bipolar Disorder, Other (ADHD ; adderall) Musculoskeletal: Reports: None, Arthritis, Back Pain (CHRONIC BACK PAIN ), Other (back problems,) Cancer: Reports: None (CHRONIC BACK PAIN ) Other Pertinent Past Medical History: back problems, ulcerative colitis - Surgical History General Surgical History: Reports: None - Family History Family History: Reports: None - Social History Smoking Status: Current every day smoker, Heavy tobacco smoker Hx Substance Use: No Alcohol Screening: None Lives: With family - Immunizations Tetanus Shot up to Date: Yes Physical Exam - Physical Exam Appearance: Well-appearing Pain Distress: Moderate Eyes: EMMY, EOMI, Conjunctiva clear ENT: Ears normal, Nose normal, Erythema (noted right upper incisor tender to palpation with surrounding gum erythema) Neck: Supple Respiratory: Airway patent, Breath sounds clear, Breath sounds equal, Respirations nonlabored Cardiovascular: RRR, Pulses normal, No rub, No murmur GI/: Soft, Nontender, No masses, Bowel sounds normal, No Organomegaly Musculoskeletal: Normal strength Skin: Warm, Dry, Normal color Neurological: Sensation intact, Motor intact, Reflexes intact, Cranial nerves intact, Alert, Oriented Psychiatric: Affect appropriate, Mood appropriate Critical Care Note - Critical Care Note Total Time (mins): 0 Course - Course Vital Signs: Temp Pulse Resp BP Pulse Ox 01/16/17 19:34 97.1 F L 79 18 155/94 H 97 Departure - Departure Time of Disposition: 19:43 Disposition: HOME SELF-CARE Discharge Problem: Toothache Instructions: Dental Abscess (ED) Condition: Good Pt referred to PMD for follow-up: Yes Additional Instructions: clindamycin 150mg tid x 7days norco 5mg q 4hrs prn pain #10--f/u dentist yuli Allergies/Adverse Reactions: Allergies codeine Adverse Reaction (Verified 01/16/17 19:40) FEELS LIKE NEEDLES IN BACK OF NECK tramadol HCl [From Ultram] Adverse Reaction (Verified 01/16/17 19:40) Nausea Home Medications: Ambulatory Orders 1 [No Reported Medications] 11/24/16 Disposition Discussed With: Patient, Family
== END 2017-01-16 19:47 | disposition home or self-care (01) ==
LOC: ED 19:33
DX: K08.89 Other specified disorders of teeth and supporting structures (principal); K02.7 Dental root caries; F17.210 Nicotine dependence, cigarettes, uncomplicated
CPT/HCPCS: 99282

== ENCOUNTER 2017-03-11 09:33 | Emergency (ER) ==
[2017-03-11 09:37] VITALS: BP 125/86; TEMP 97; BMI 22.2
[2017-03-11 09:58] LABS: BASOPHILS # (AUTO) 0.1 K/uL (0-0.2); BASOPHILS % (AUTO) 0.7 % (0.0-3.0); EOSINOPHILS # (AUTO) 0.1 K/ul (0.0-0.7); EOSINOPHILS % (AUTO) 0.8 % (0.0-7.0); HEMATOCRIT 45.8 % (42.0-52.0); LYMPHOCYTES # (AUTO) 2.4 K/uL (0.60-3.4); LYMPHOCYTES % (AUTO) 28.8 (10.0-50.0); MEAN CORPUSCULAR HEMOGLOBIN 29.5 pg (27.0-31.0); MEAN CORPUSCULAR HGB CONC 34.9 (31.8-35.4); MEAN CORPUSCULAR VOLUME 84.5 fl (80.0-94.0); MONOCYTES # (AUTO) 0.5 K/uL (0.4-2.0); MONOCYTES % (AUTO) 6.5 (0-10); NEUTROPHILS # (AUTO) 5.2 K/ul (2.0-6.9); NEUTROPHILS % (AUTO) 62.2; PLATELET COUNT 306 10^3/uL (140-440); RED BLOOD COUNT 5.42 10^6/ul (4.70-6.10); WHITE BLOOD COUNT 8.36 K/ul (4.2-10.2)
[2017-03-11] MEDS: ZOFRAN 4 MG/2 ML IM STA (10:06)
[2017-03-11 10:18] LABS: ALBUMIN/GLOBULIN RATIO 1.29; BILIRUBIN,TOTAL 0.33 mg/dL (0.00-1.20); BUN/CREATININE RATIO 11.11; CALCIUM 9.5 mg/dL (8.2-10.2); CREATININE 0.72 mg/dL (0.60-1.10); TOTAL PROTEIN 7.1 g/dL (6.4-8.2)
--- NOTE | 2017-03-11 10:37 | CT ---
EXAM: CT Abdomen without contrast. CT Pelvis without contrast. HISTORY: Generalized abdominal pain. COMPARISON: 10/26/2016. TECHNIQUE: Multiple axial images of the abdomen and pelvis were obtained without intravenous contras t. Images were reformatted in the coronal plane. FINDINGS: Please note that evaluation of the abdominal and pelvic structures is limited due to lack of intravenous contrast. The lung bases are clear. No acute osseous abnormality identified. The liver, gallbladder, pancreas, spleen, and adrenal glands demonstrate normal contour. Punctate ri ght nephrolithiasis noted. No calcified left renal stones identified. There is no hydronephrosis. No ureteral or bladder calculi identified. The bowel is normal in course and caliber without evidence for obstruction or inflammatory process. Mild colonic diverticulosis noted, including the right colon. The appendix is normal. Urinary bladd er is unremarkable. No free fluid or free air identified IMPRESSION: 1. Right nephrolithiasis without obstructive uropathy. 2. Mild diverticulosis.
--- NOTE | 2017-03-11 11:06 | ED.PDOC ---
General ED Provider: Dr. BRIONNA LR Chief Complaint: Abdominal Pain Stated Complaint: abdominal pain Time Seen by Physician: 09:33 (seen with tre at all time) Mode of Arrival: Walk-In Information Source: Patient Exam Limitations: No limitations [facility] and Triage Documentation Reviewed and Agree: Yes GI Complaint Exam - Abdominal Pain Complaint/Exam Onset: Gradual Duration: 1 week Symptoms Are: Still present Timing: Intermittent Initial Severity: Moderate Current Severity: Moderate Location of Pain: Diffuse Character: Reports: Aching Aggravating: Reports: None Alleviating: Reports: None Associated Signs and Symptoms: Denies: Diaphoresis, Fever, Cough, Chest pain, Dizziness, Back pain, Constipation, Blood in stool, Dysuria, Urinary frequency, Decreased urine output, Decreased appetite, Discharge, Nausea, Vomiting, Diarrhea, Decreased activity Related History: Reports: Similar episode AAA Risk Factors: Reports: None Cardiac Risk Factors: Reports: None Testicular Torsion Risk Factors: Reports: None Surgical Obstruction Risk Factors: Reports: None Related Surgical History: Reports: None Abdominal Findings: Present: None Genitalia Exam: Present: Normal findings Differential Diagnoses: Appendicitis, Constipation, Gastroenteritis, Irritable Bowel Syndrome Review of Systems - Review Of Systems Constitutional: Reports: No symptoms Eyes: Reports: No symptoms Ears, Nose, Mouth, Throat: Reports: No symptoms Respiratory: Reports: No symptoms Cardiac: Reports: No symptoms GI: Reports: Abdominal pain : Reports: No symptoms Musculoskeletal: Reports: No symptoms Skin: Reports: No symptoms Neurological: Reports: No symptoms Endocrine: Reports: No symptoms Hematologic/Lymphatic: Reports: No symptoms All Other Systems: Reviewed and Negative Past Medical History - Past Medical History Previously Healthy: Yes Endocrine: Reports: None Cardiovascular: Reports: None Respiratory: Reports: None Hematological: Reports: None Gastrointestinal: Reports: Other ( ulcerative colitis) Genitourinary: Reports: None Neuro/Psych: Reports: Migraine, Bipolar Disorder, Other (ADHD ; adderall) Musculoskeletal: Reports: None, Arthritis, Back Pain (CHRONIC BACK PAIN ), Other (back problems,) Cancer: Reports: None (CHRONIC BACK PAIN ) Other Pertinent Past Medical History: back problems, ulcerative colitis - Surgical History General Surgical History: Reports: None - Family History Family History: Reports: None - Social History Smoking Status: Current every day smoker, Heavy tobacco smoker Hx Substance Use: No Alcohol Screening: None Physical Exam - Physical Exam Appearance: Well-appearing, No pain distress, Well-nourished Eyes: EMMY, EOMI, Conjunctiva clear ENT: Ears normal, Nose normal, Oropharynx normal Respiratory: Airway patent, Breath sounds clear, Breath sounds equal, Respirations nonlabored Cardiovascular: RRR, Pulses normal, No rub, No murmur GI/: Soft, Nontender, No masses, Bowel sounds normal, No Organomegaly Musculoskeletal: Normal strength, ROM intact, No edema, No calf tenderness Skin: Warm, Dry, Normal color Neurological: Sensation intact, Motor intact, Reflexes intact, Cranial nerves intact, Alert, Oriented Psychiatric: Affect appropriate, Mood appropriate Critical Care Note - Critical Care Note Total Time (mins): 0 Course - Course Hematology/Chemistry: 03/11/17 09:50 03/11/17 09:50 Orders, Labs, Meds: Lab Review 03/11/17 03/11/17 09:50 09:50 WBC 8.36 RBC 5.42 Hgb 16.0 Hct 45.8 MCV 84.5 MCH 29.5 MCHC 34.9 RDW Coeff of Gerard 12.2 Plt Count 306 Immature Gran % (Auto) 1.0 Neut % (Auto) 62.2 Lymph % (Auto) 28.8 [place] % (Auto) 6.5 Eos % (Auto) 0.8 Baso % (Auto) 0.7 Immature Gran # (Auto) 0.1 Neut # 5.2 Lymph # 2.4 [place] # 0.5 Eos # 0.1 Baso # 0.1 Sodium 137 Potassium 4.0 Chloride 104 Carbon Dioxide 23 Anion Gap 14.0 BUN 8 Creatinine 0.72 Estimated GFR (MDRD) 132.00 BUN/Creatinine Ratio 11.11 Glucose 97 Calcium 9.5 Total Bilirubin 0.33 AST 18 ALT 15 Alkaline Phosphatase 97 Total Protein 7.1 Albumin 4.0 Globulin 3.1 Albumin/Globulin Ratio 1.29 Amylase 66 Lipase 8 Orders Category Date Time Status AMYLASE Stat LAB 03/11/17 09:50 Completed CBC W/ AUTO DIFF Stat LAB 03/11/17 09:50 Completed COMPREHENSIVE METABOLIC PANEL Stat LAB 03/11/17 09:50 Completed LIPASE Stat LAB 03/11/17 09:50 Completed Ondansetron HCl/Pf [Zofran 4 mg/2 ml] MEDS 03/11/17 09:58 Discontinued 4 mg IM ONCE STA CT ABDOMEN/PELVIS WO CONTRAST Stat RADS 03/11/17 09:42 Completed Medications Discontinued Medications Generic Name Dose Route Start Last Admin Trade Name Kenyon PRN Reason Stop Dose Admin Ondansetron HCl 4 mg 03/11/17 09:58 03/11/17 10:06 Zofran 4 Mg/2 Ml IM 03/11/17 09:59 4 mg ONCE STA Administration Vital Signs: Temp Pulse Resp BP Pulse Ox 03/11/17 09:33 97.0 F L 72 16 125/86 98 Departure - Departure Time of Disposition: 11:05 Disposition: HOME SELF-CARE Discharge Problem: Abdominal pain Instructions: Acute Abdominal Pain (ED) Condition: Good Pt referred to PMD for follow-up: Yes Additional Instructions: Please call your Family Physician as soon as possible to schedule a follow-up appointment. Allergies/Adverse Reactions: Allergies codeine Adverse Reaction (Verified 03/11/17 09:37) FEELS LIKE NEEDLES IN BACK OF NECK Home Medications: Ambulatory Orders Doxycycline Hyclate 100 mg PO BID 03/11/17 Prednisone 10 mg PO BID 03/11/17
== END 2017-03-11 11:12 | disposition home or self-care (01) ==
LOC: ED 09:33
DX: R10.84 Generalized abdominal pain (principal); F17.210 Nicotine dependence, cigarettes, uncomplicated
CPT/HCPCS: 36415; 80053; 82150; 83690; 85025; 96372; 99283

== ENCOUNTER 2017-05-12 10:23 | Emergency (ER) ==
[2017-05-12 10:26] VITALS: BP 140/97; TEMP 97.7; BMI 22.9
--- NOTE | 2017-05-12 10:58 | ED.PDOC ---
General ED Provider: Dr. BRIONNA LR Chief Complaint: Tooth Problem Stated Complaint: dental pain Time Seen by Physician: 10:30 Mode of Arrival: Walk-In Information Source: Patient Exam Limitations: No limitations [facility] and Triage Documentation Reviewed and Agree: Yes EENT Complaint Exam - Dental/Oral Complaint/Exam Mechanism of Injury: No known trauma Onset/Duration: chronic Symptoms Are: Still present Timing: Constant Initial Severity: Moderate Current Severity: Moderate Character: Reports: Aching, Throbbing Aggravating: Reports: Heat, Cold, Chewing Alleviating: Reports: None, Heat Tooth Findings: Present: Gross decay, Gross caries Cervical Lymphadenopathy Present: No Facial Swelling Present: No Bleeding Present: No Oropharynx Findings: Absent: Clots, Active bleeding Septal Hematoma: No Foreign Body Present: No Dysphagia Present: No Drooling Present: No Asymmetrical Tonsillar Swelling Present: No Uvula Midline: Yes Judy-tonsillar Fluctuence: No Teeth Picture: 1 - decay Review of Systems - Review Of Systems Constitutional: Reports: No symptoms Eyes: Reports: No symptoms Ears, Nose, Mouth, Throat: Reports: No symptoms Respiratory: Reports: No symptoms Cardiac: Reports: No symptoms GI: Reports: No symptoms : Reports: No symptoms Musculoskeletal: Reports: No symptoms Skin: Reports: No symptoms Neurological: Reports: No symptoms Endocrine: Reports: No symptoms Hematologic/Lymphatic: Reports: No symptoms All Other Systems: Reviewed and Negative Past Medical History - Past Medical History Previously Healthy: Yes Endocrine: Reports: None Cardiovascular: Reports: None Respiratory: Reports: None Hematological: Reports: None Gastrointestinal: Reports: Other ( ulcerative colitis) Genitourinary: Reports: None Neuro/Psych: Reports: Migraine, Bipolar Disorder, Other (ADHD ; adderall) Musculoskeletal: Reports: None, Arthritis, Back Pain (CHRONIC BACK PAIN ), Other (back problems,) Cancer: Reports: None (CHRONIC BACK PAIN ) Other Pertinent Past Medical History: back problems, ulcerative colitis - Surgical History General Surgical History: Reports: None - Family History Family History: Reports: None - Social History Smoking Status: Current every day smoker, Heavy tobacco smoker Hx Substance Use: No Alcohol Screening: None Physical Exam - Physical Exam Appearance: Well-appearing, No pain distress, Well-nourished Eyes: EMMY, EOMI, Conjunctiva clear ENT: Ears normal, Nose normal, Oropharynx normal Respiratory: Airway patent, Breath sounds clear, Breath sounds equal, Respirations nonlabored Cardiovascular: RRR, Pulses normal, No rub, No murmur GI/: Soft, Nontender, No masses, Bowel sounds normal, No Organomegaly Musculoskeletal: Normal strength, ROM intact, No edema, No calf tenderness Skin: Warm, Dry, Normal color Neurological: Sensation intact, Motor intact, Reflexes intact, Cranial nerves intact, Alert, Oriented Psychiatric: Affect appropriate, Mood appropriate Critical Care Note - Critical Care Note Total Time (mins): 0 Course - Course Vital Signs: Temp Pulse Resp BP Pulse Ox 05/12/17 10:24 97.7 F 90 18 140/97 H 96 Departure - Departure Time of Disposition: 10:57 Disposition: HOME SELF-CARE Discharge Problem: Toothache Instructions: Toothache (ED) Condition: Good Pt referred to PMD for follow-up: Yes Additional Instructions: Please call your Family Physician as soon as possible to schedule a follow-up appointment. Prescriptions: Amoxicillin 500 mg PO Q8HR #21 tablet Hydrocodone/Acetaminophen [[place] 10-325 Tablet] 1 each PO Q8HR #7 tablet Allergies/Adverse Reactions: Allergies codeine Adverse Reaction (Verified 05/12/17 10:26) FEELS LIKE NEEDLES IN BACK OF NECK Home Medications: Ambulatory Orders Amoxicillin 500 mg PO Q8HR #21 tablet 05/12/17 Hydrocodone/Acetaminophen [[place] 10-325 Tablet] 1 each PO Q8HR #7 tablet
== END 2017-05-12 11:00 | disposition home or self-care (01) ==
LOC: ED 10:23
DX: K08.89 Other specified disorders of teeth and supporting structures (principal); K02.7 Dental root caries; F17.210 Nicotine dependence, cigarettes, uncomplicated
CPT/HCPCS: 99282

== ENCOUNTER 2017-06-24 13:52 | Emergency (ER) ==
[2017-06-24 14:03] VITALS: BP 139/84; TEMP 98; BMI 21.5
--- NOTE | 2017-06-24 14:16 | ED.PDOC ---
General ED Provider: Dr. BRIONNA LR Chief Complaint: Tooth Problem Stated Complaint: dental pain Time Seen by Physician: 14:00 (seen with NINI AT ALL TIMES ) Mode of Arrival: Walk-In Information Source: Patient Exam Limitations: No limitations Nursing and Triage Documentation Reviewed and Agree: Yes Reviewed sepsis parameters & appropriate labs ordered?: Yes System Inflammatory Response Syndrome: Not Applicable Sepsis Protocol: For patient's 13 years and over: Temp is 96.8 and below OR 101 and greater Pulse >90 BPM Resp >20/minute Acutely Altered Mental Status Are patient's symptoms suggestive of a new infection, such as: -Pneumonia -Skin, Soft Tissue -Endocarditis -UTI -Bone, Joint Infection -Implantable Device -Acute Abdominal Infection -Wound Infection -Meningitis -Blood Stream Catheter Infection -Unknown System Inflammatory Response Syndrome: Not Applicable EENT Complaint Exam - Dental/Oral Complaint/Exam Mechanism of Injury: No known trauma Onset/Duration: CHRONIC ISSUE MORE PAIN TODAY Symptoms Are: Still present Timing: Constant Initial Severity: Moderate Current Severity: Moderate Character: Reports: Dull, Aching, Throbbing Aggravating: Reports: Heat, Cold, Chewing Alleviating: Reports: None Related History: Reports: Similar episode Dental/Oral Surgical History: Reports: None Tooth Findings: Present: Percussion tenderness, Gross decay, Gross caries, Dental fracture Cervical Lymphadenopathy Present: No Facial Swelling Present: No Bleeding Present: No Oropharynx Findings: Absent: Clots, Active bleeding Septal Hematoma: No Foreign Body Present: No Dysphagia Present: No Drooling Present: No Asymmetrical Tonsillar Swelling Present: No Uvula Midline: No Judy-tonsillar Fluctuence: No Trismus Present: No Palatal Petechiae Present: No Scarlatinaform Rash Present: No Teeth Picture: 1 - DECAY Differential Diagnoses: Dental Caries, Fractured Tooth Review of Systems - Review Of Systems Constitutional: Reports: No symptoms Eyes: Reports: No symptoms Ears, Nose, Mouth, Throat: Reports: No symptoms Respiratory: Reports: No symptoms Cardiac: Reports: No symptoms GI: Reports: No symptoms : Reports: No symptoms Musculoskeletal: Reports: No symptoms Skin: Reports: No symptoms Neurological: Reports: No symptoms Endocrine: Reports: No symptoms Hematologic/Lymphatic: Reports: No symptoms All Other Systems: Reviewed and Negative Past Medical History - Past Medical History Previously Healthy: Yes Endocrine: Reports: None Cardiovascular: Reports: None Respiratory: Reports: None Hematological: Reports: None Gastrointestinal: Reports: Other ( ulcerative colitis) Genitourinary: Reports: None Neuro/Psych: Reports: Migraine, Bipolar Disorder, Other (ADHD ; adderall) Musculoskeletal: Reports: None, Arthritis, Back Pain (CHRONIC BACK PAIN ), Other (back problems,) Cancer: Reports: None (CHRONIC BACK PAIN ) Other Pertinent Past Medical History: back problems, ulcerative colitis - Surgical History General Surgical History: Reports: None - Family History Family History: Reports: None - Social History Smoking Status: Current every day smoker, Heavy tobacco smoker Hx Substance Use: No Alcohol Screening: None Physical Exam - Physical Exam Appearance: Well-appearing, No pain distress, Well-nourished Eyes: EMMY, EOMI, Conjunctiva clear ENT: Ears normal, Nose normal, Oropharynx normal Respiratory: Airway patent, Breath sounds clear, Breath sounds equal, Respirations nonlabored Cardiovascular: RRR, Pulses normal, No rub, No murmur GI/: Soft, Nontender, No masses, Bowel sounds normal, No Organomegaly Musculoskeletal: Normal strength, ROM intact, No edema, No calf tenderness Skin: Warm, Dry, Normal color Neurological: Sensation intact, Motor intact, Reflexes intact, Cranial nerves intact, Alert, Oriented Psychiatric: Affect appropriate, Mood appropriate Critical Care Note - Critical Care Note Total Time (mins): 0 Course - Course Vital Signs: Temp Pulse Resp BP Pulse Ox 06/24/17 13:57 98.0 F 81 20 139/84 97 Departure - Departure Time of Disposition: 14:15 Disposition: HOME SELF-CARE Discharge Problem: Toothache, Pain, dental Instructions: Toothache (ED) Condition: Good Pt referred to PMD for follow-up: Yes IPMP verified?: Yes Additional Instructions: Please call your Family Physician as soon as possible to schedule a follow-up appointment. Prescriptions: Amoxicillin 500 mg PO Q8HR #21 tablet Hydrocodone/Acetaminophen [[place] 10-325 Tablet] 1 each PO Q8HR #7 tablet Allergies/Adverse Reactions: Allergies codeine Adverse Reaction (Verified 05/12/17 10:26) FEELS LIKE NEEDLES IN BACK OF NECK Home Medications: Ambulatory Orders Amoxicillin 500 mg PO Q8HR #21 tablet 12/11/17 Hydrocodone/Acetaminophen [[place] 10-325 Tablet] 1 each PO Q8HR #7 tablet Amoxicillin 500 mg PO Q8HR #21 tablet 06/24/17 Hydrocodone/Acetaminophen [[place] 10-325 Tablet] 1 each PO Q8HR #7 tablet
== END 2017-06-24 14:24 | disposition home or self-care (01) ==
LOC: ED 13:52
DX: K08.89 Other specified disorders of teeth and supporting structures (principal); K02.7 Dental root caries; S02.5XXA Fracture of tooth (traumatic), initial encounter for closed fracture; F17.210 Nicotine dependence, cigarettes, uncomplicated
CPT/HCPCS: 99282

== ENCOUNTER 2017-11-22 12:41 | Emergency (ER) ==
[2017-11-22 12:41] VITALS: BMI 22.2
[2017-11-22 12:48] VITALS: TEMP 96.6
--- NOTE | 2017-11-22 13:33 | ED.PDOC ---
General ED Provider: Dr. TAMMY BILLY Chief Complaint: Tooth Problem Stated Complaint: Fornt teeth pain for a long time was treated for right ear infection with clindamycin which help the pain. Now the pain is back. will be going to [place] where he can get an oral surgeon. Time Seen by Physician: 13:10 Mode of Arrival: Walk-In Information Source: Patient Nursing and Triage Documentation Reviewed and Agree: Yes Does patient meet sepsis criteria?: No If yes, has appropriate treatment been initiated?: No System Inflammatory Response Syndrome: Not Applicable Sepsis Protocol: For patient's 13 years and over: Temp is 96.8 and below OR 101 and greater Pulse >90 BPM Resp >20/minute Acutely Altered Mental Status Are patient's symptoms suggestive of a new infection, such as: -Pneumonia -Skin, Soft Tissue -Endocarditis -UTI -Bone, Joint Infection -Implantable Device -Acute Abdominal Infection -Wound Infection -Meningitis -Blood Stream Catheter Infection -Unknown EENT Complaint Exam - Dental/Oral Complaint/Exam Mechanism of Injury: No known trauma Onset/Duration: 1 week Symptoms Are: Still present Timing: Constant Initial Severity: Moderate Current Severity: Severe Location: Front upper teeth Right bicuspid. Aggravating: Reports: Heat, Cold, Chewing Associated Signs and Symptoms: Denies: Swelling, Discharge, Fever, Foul odor, Foul taste in mouth Related History: Reports: Similar episode Cardiac Risk Factors: Reports: None Dental/Oral Surgical History: Reports: None Tooth Findings: Present: Gross decay, Gross caries, Dental fracture Cervical Lymphadenopathy Present: No Facial Swelling Present: No Bleeding Present: No Oropharynx Findings: Absent: Clots, Active bleeding Septal Hematoma: No Foreign Body Present: No Dysphagia Present: No Drooling Present: No Asymmetrical Tonsillar Swelling Present: No Uvula Midline: No Judy-tonsillar Fluctuence: No Trismus Present: No Palatal Petechiae Present: No Scarlatinaform Rash Present: No Teeth Picture: 1 - Dental caries, Left incisor Fractured Differential Diagnoses: Dental Abcess, Dental Caries, Fractured Tooth, Periodontic Disease Review of Systems - Review Of Systems Constitutional: Reports: No symptoms Eyes: Reports: No symptoms Ears, Nose, Mouth, Throat: Reports: Mouth pain Respiratory: Reports: No symptoms Cardiac: Reports: No symptoms GI: Reports: No symptoms : Reports: No symptoms Musculoskeletal: Reports: No symptoms Skin: Reports: No symptoms Neurological: Reports: No symptoms Endocrine: Reports: No symptoms Hematologic/Lymphatic: Reports: No symptoms All Other Systems: Reviewed and Negative Past Medical History - Past Medical History Previously Healthy: Yes Endocrine: Reports: None Cardiovascular: Reports: None Respiratory: Reports: None Hematological: Reports: None Gastrointestinal: Reports: Other ( ulcerative colitis) Genitourinary: Reports: None Neuro/Psych: Reports: Migraine, Bipolar Disorder, Other (ADHD ; adderall) Musculoskeletal: Reports: None, Arthritis, Back Pain (CHRONIC BACK PAIN ), Other (back problems,) Cancer: Reports: None (CHRONIC BACK PAIN ) Other Pertinent Past Medical History: back problems, ulcerative colitis - Surgical History General Surgical History: Reports: None - Family History Family History: Reports: None - Social History Smoking Status: Current every day smoker, Heavy tobacco smoker Hx Substance Use: No Alcohol Screening: None Physical Exam - Physical Exam Appearance: Well-appearing, Well-nourished Pain Distress: Moderate Eyes: EMMY, EOMI, Conjunctiva clear ENT: Ears normal, Nose normal Neck: Supple Respiratory: Airway patent, Breath sounds clear, Breath sounds equal, Respirations nonlabored Cardiovascular: RRR, Pulses normal, No rub, No murmur Musculoskeletal: Normal strength, ROM intact, No edema, No calf tenderness Skin: Warm, Dry, Normal color Neurological: Sensation intact, Motor intact, Cranial nerves intact, Alert, Oriented Psychiatric: Affect appropriate, Mood appropriate Critical Care Note - Critical Care Note Total Time (mins): 0 Course - Course Vital Signs: Temp Pulse Resp BP Pulse Ox 11/22/17 12:42 96.6 F L 84 16 140/100 H 98 Departure - Departure Time of Disposition: 13:32 Disposition: HOME SELF-CARE Discharge Problem: Dental caries into pulp Instructions: Dry Mouth (ED), Toothache (ED) Condition: Stable Pt referred to PMD for follow-up: Yes IPMP verified?: Yes Additional Instructions: Take Medications as prescribed Follow up with Dentist soon. Prescriptions: Amoxicillin [Amoxil] 500 mg PO TID #30 capsule Tramadol HCl [Ultram] 50 mg PO Q6H PRN #10 tablet PRN Reason: Severe Pain Allergies/Adverse Reactions: Allergies codeine Adverse Reaction (Verified 11/22/17 12:43) FEELS LIKE NEEDLES IN BACK OF NECK Home Medications: Ambulatory Orders Amoxicillin [Amoxil] 500 mg PO TID #30 capsule 11/22/17 Tramadol HCl [Ultram] 50 mg PO Q6H PRN #10 tablet 11/22/17 Disposition Discussed With: Patient, Family
[2017-11-22 13:43] VITALS: BP 123/85
== END 2017-11-22 13:48 | disposition home or self-care (01) ==
LOC: ED 12:41
DX: K02.7 Dental root caries (principal); K08.89 Other specified disorders of teeth and supporting structures
CPT/HCPCS: 99282

== ENCOUNTER 2018-01-19 12:47 | Emergency (ER) ==
[2018-01-19 12:50] VITALS: BP 157/76; TEMP 97.8; BMI 22.9
--- NOTE | 2018-01-19 13:40 | CT ---
EXAM: CT chest without contrast. HISTORY: Initial presentation for right chest trauma. Audible pop. Sternal pain. COMPARISON: 12/28/2015. TECHNIQUE: Multiple axial images of the chest were obtained without intravenous contrast. Images we re reformatted in the sagittal and coronal planes. Three-dimensional reconstructed images were also o btained. FINDINGS: Evaluation for lymphadenopathy is limited by lack of intravenous contrast. Heart size is normal. No mediastinal fluid collections are seen. No pericardial effusion detected. Aorta is norm al in caliber without periaortic hemorrhage. No consolidation, pleural effusion or pneumothorax detected. A few tiny pulmonary nodules are stable since the prior study. No rib or sternal fracture identified. No thoracic spine fracture is seen. Limited images of the upper abdomen demonstrate no acute finding. IMPRESSION: No acute post-traumatic abnormality of the chest.
--- NOTE | 2018-01-19 13:49 | ED.PDOC ---
General ED Provider: Dr. BRIONNA LR Chief Complaint: Chest Wall Injury/Pain Stated Complaint: chest wall Time Seen by Physician: 13:00 (seen with bong TORRES) Mode of Arrival: Walk-In Information Source: Family Exam Limitations: No limitations Nursing and Triage Documentation Reviewed and Agree: Yes Does patient meet sepsis criteria?: No System Inflammatory Response Syndrome: Not Applicable Sepsis Protocol: For patient's 13 years and over: Temp is 96.8 and below OR 101 and greater Pulse >90 BPM Resp >20/minute Acutely Altered Mental Status Are patient's symptoms suggestive of a new infection, such as: -Pneumonia -Skin, Soft Tissue -Endocarditis -UTI -Bone, Joint Infection -Implantable Device -Acute Abdominal Infection -Wound Infection -Meningitis -Blood Stream Catheter Infection -Unknown Trauma/Injury Complaint Exam - Trauma Complaint/Exam Location of Pain or Injury: Reports: Chest. Denies: Head, Scalp, Face, Neck, RUE, LUE, Abdomen, Back, RLE Mechanism of Injury: Reports: Other (BLUNT CHEST) Onset/Duration: 1 DAY AGO Symptoms Are: Still present Timing of Treatment: Delayed Initial Severity: Mild Current Severity: Mild Character: Reports: Dull Aggravating: Reports: None Alleviating: Reports: None Associated Signs and Symptoms: Denies: LOC, Confusion, Memory loss, Lethargy, Vomiting, Bleeding, Bruising, Swelling, Extremity disuse, Painful respiration, Hoarseness, Dysphagia, Hemoptysis, Significant blood loss Penetrating Injury Risk Factors: Reports: None Related Surgical History: Reports: None Nexus Low Risk Criteria: No post-midline CS tender, No evidence of intoxicat., No Altered LOC, No focal neuro deficit, No distracting injuries Glascow Coma Scale (see protocol): 15 Trauma Findings: Present: Neck tenderness. Absent: [place] eyes, Hemotympanum, Nasal deformity, Dental tenderness, Dental injury, Dental malocclusion, Neck spasm, SubQ Air, Crepitus, Airway obstructed, Trachea displaced, Labored respirations, Decreased breath sounds, Muffled heart sounds Review of Systems - Review Of Systems Constitutional: Reports: No symptoms Eyes: Reports: No symptoms Ears, Nose, Mouth, Throat: Reports: No symptoms Respiratory: Reports: No symptoms Cardiac: Reports: Chest pain GI: Reports: No symptoms : Reports: No symptoms Musculoskeletal: Reports: No symptoms Skin: Reports: No symptoms Neurological: Reports: No symptoms Endocrine: Reports: No symptoms Hematologic/Lymphatic: Reports: No symptoms All Other Systems: Reviewed and Negative Past Medical History - Past Medical History Previously Healthy: Yes Endocrine: Reports: None Cardiovascular: Reports: None Respiratory: Reports: None Hematological: Reports: None Gastrointestinal: Reports: Other ( ulcerative colitis) Genitourinary: Reports: None Neuro/Psych: Reports: Migraine, Bipolar Disorder, Other (ADHD ; adderall) Musculoskeletal: Reports: None, Arthritis, Back Pain (CHRONIC BACK PAIN ), Other (back problems,) Cancer: Reports: None (CHRONIC BACK PAIN ) Other Pertinent Past Medical History: back problems, ulcerative colitis - Surgical History General Surgical History: Reports: None - Family History Family History: Reports: None - Social History Smoking Status: Current every day smoker, Heavy tobacco smoker Hx Substance Use: No Alcohol Screening: None Physical Exam - Physical Exam Appearance: Well-appearing, No pain distress, Well-nourished Eyes: EMMY, EOMI, Conjunctiva clear ENT: Ears normal, Nose normal, Oropharynx normal Respiratory: Airway patent, Breath sounds clear, Breath sounds equal, Respirations nonlabored Cardiovascular: RRR, Pulses normal, No rub, No murmur GI/: Soft, Nontender, No masses, Bowel sounds normal, No Organomegaly Musculoskeletal: Normal strength, ROM intact, No edema, No calf tenderness Skin: Warm, Dry, Normal color Neurological: Sensation intact, Motor intact, Reflexes intact, Cranial nerves intact, Alert, Oriented Psychiatric: Affect appropriate, Mood appropriate Interpretation - Radiology Interpretation Radiology Interpretation By: Radiologist Radiology Results: No acute changes Critical Care Note - Critical Care Note Total Time (mins): 0 Course - Course Orders, Labs, Meds: Orders Category Date Time Status CT CHEST W/O CONTRAST Stat RADS 01/19/18 13:01 Ordered Vital Signs: Temp Pulse Resp BP Pulse Ox 01/19/18 12:47 97.8 F 87 18 157/76 H 97 Departure - Departure Time of Disposition: 13:49 Disposition: HOME SELF-CARE Discharge Problem: Chest wall pain Instructions: Chest Wall Pain (ED) Condition: Good Pt referred to PMD for follow-up: Yes IPMP verified?: No Additional Instructions: Please call your Family Physician as soon as possible to schedule a follow-up appointment. Allergies/Adverse Reactions: Allergies codeine Adverse Reaction (Verified 01/19/18 12:51) FEELS LIKE NEEDLES IN BACK OF NECK Home Medications: Ambulatory Orders 1 [No Reported Medications] 01/19/18
== END 2018-01-19 13:55 | disposition home or self-care (01) ==
LOC: ED 12:47
DX: R07.89 Other chest pain (principal); F17.210 Nicotine dependence, cigarettes, uncomplicated; W22.8XXA Striking against or struck by other objects, initial encounter
CPT/HCPCS: 99283

== ENCOUNTER 2018-07-02 12:51 | Emergency (ER) ==
[2018-07-02 12:55] VITALS: BP 141/95; TEMP 99.4; BMI 25.1
--- NOTE | 2018-07-02 14:43 | ED.PDOC ---
General ED Provider: Dr. SUZI SANDY Chief Complaint: Knee Pain/Injury Stated Complaint: Lt Knee pain. Slipped on ice last night, fell and twisted lt knee. No obsreved discoloration,edema, or noted deformity. Time Seen by Physician: 14:40 Mode of Arrival: Walk-In Information Source: Patient Exam Limitations: Clinical condition Nursing and Triage Documentation Reviewed and Agree: Yes Does patient meet sepsis criteria?: No System Inflammatory Response Syndrome: Not Applicable Sepsis Protocol: For patient's 13 years and over: Temp is 96.8 and below OR 101 and greater Pulse >90 BPM Resp >20/minute Acutely Altered Mental Status Are patient's symptoms suggestive of a new infection, such as: -Pneumonia -Skin, Soft Tissue -Endocarditis -UTI -Bone, Joint Infection -Implantable Device -Acute Abdominal Infection -Wound Infection -Meningitis -Blood Stream Catheter Infection -Unknown Musculoskeletal Complaint Exam - Knee Pain Complaint/Exam Mechanism of Injury: Reports: Trauma Onset/Duration: 12 hrs Symptoms Are: Still present Onset of Pain: Reports: Immediate Initial Severity: Moderate Current Severity: Moderate Location: Reports: Diffuse Character: Reports: Aching, Throbbing Alleviating: Reports: Rest Aggravating: Reports: Movement, Weight bearing Associated Signs and Symptoms: Denies: Swelling, Redness, Bruising, Fever, Weakness, Numbness, Tingling Able to Bear Weight: No Related History: Denies: Similar episode Septic Arthritis Risk Factors: Reports: None Gout Risk Factors: Reports: None Related Surgical History: Denies: Right Knee, Left Knee Knee Findings: Absent: Swelling, Ecchymosis, Abnormal contour, Ligamentous instability, Laceration, Erythema, Warmth, Blisters, Other joint pain, Foreign body Tenderness: Present: Pre-patellar, Joint Deny Test Positive: No Yasemin Test Positive: No Limited Range of Motion: Present: Active. Absent: Passive Differential Diagnoses: Strain Review of Systems - Review Of Systems Constitutional: Reports: No symptoms Eyes: Reports: No symptoms Ears, Nose, Mouth, Throat: Reports: No symptoms Respiratory: Reports: No symptoms Cardiac: Reports: No symptoms GI: Reports: No symptoms : Reports: No symptoms Musculoskeletal: Reports: No symptoms Skin: Reports: No symptoms Neurological: Reports: No symptoms Endocrine: Reports: No symptoms Hematologic/Lymphatic: Reports: No symptoms All Other Systems: Reviewed and Negative Past Medical History - Past Medical History Previously Healthy: Yes Endocrine: Reports: None Cardiovascular: Reports: None Respiratory: Reports: None Hematological: Reports: None Gastrointestinal: Reports: Other ( ulcerative colitis) Genitourinary: Reports: None Neuro/Psych: Reports: Migraine, Bipolar Disorder, Other (ADHD ; adderall) Musculoskeletal: Reports: None, Arthritis, Back Pain (CHRONIC BACK PAIN ), Other (back problems,) Cancer: Reports: None (CHRONIC BACK PAIN ) Other Pertinent Past Medical History: back problems, ulcerative colitis - Surgical History General Surgical History: Reports: None - Family History Family History: Reports: None - Social History Smoking Status: Current every day smoker, Heavy tobacco smoker Hx Substance Use: No Alcohol Screening: None Physical Exam - Physical Exam Appearance: Well-appearing (Moaning in pain , writhing on stretcher) Ill-appearing: None Pain Distress: Moderate Eyes: EMMY, EOMI, Conjunctiva clear ENT: Ears normal, Nose normal, Oropharynx normal Neck: Supple Cardiovascular: RRR, Pulses normal, No rub, No murmur GI/: Soft, Nontender, No masses, Bowel sounds normal, No Organomegaly Musculoskeletal: Normal strength, ROM intact, No edema, No calf tenderness, Limited strength, Edema, Calf tenderness Skin: Warm, Dry, Normal color Neurological: Sensation intact, Motor intact, Reflexes intact, Cranial nerves intact, Alert, Oriented Psychiatric: Anxious Interpretation - Radiology Interpretation Radiology Interpretation By: Radiologist Radiology Results: Negative (Lt knee wnl no fracture) Critical Care Note - Critical Care Note Total Time (mins): 0 Course - Course Orders, Labs, Meds: Orders Category Date Time Status CRUTCHES [ED CRUTCHES] .ONCE EMERGENCY 07/02/18 15:56 Active Knee immobilizer [ED SPLINT APPLICATION] .ONCE EMERGENCY 07/02/18 15:57 Active Ketorolac Tromethamine [Toradol] MEDS 07/02/18 14:58 Discontinued 30 mg IM ONCE STA Ondansetron HCl/Pf [Zofran 4 mg/2 ml] MEDS 07/02/18 14:59 Discontinued 4 mg IM ONCE STA KNEE, LEFT 4 VIEWS Stat RADS 07/02/18 14:47 Completed Medications Discontinued Medications Generic Name Dose Route Start Last Admin Trade Name Freq PRN Reason Stop Dose Admin Ketorolac Tromethamine 30 mg 07/02/18 14:58 07/02/18 15:12 Toradol IM 07/02/18 14:59 30 mg ONCE STA Administration Ondansetron HCl 4 mg 07/02/18 14:59 07/02/18 15:13 Zofran 4 Mg/2 Ml IM 07/02/18 15:00 4 mg ONCE STA Administration Vital Signs: Temp Pulse Resp BP Pulse Ox 07/02/18 12:52 99.4 F 105 H 20 141/95 H 97 Departure - Departure Time of Disposition: 15:50 Disposition: HOME SELF-CARE Discharge Problem: Strain of left knee Instructions: Knee Pain (ED), Knee Immobilizer (ED) Condition: Good Pt referred to PMD for follow-up: Yes IPMP verified?: No Additional Instructions: Schedule apt to see pcp or clinical trials specialist in next few days Ice / ELevate Non wt bearing ambulation until discomfort subsides Prescriptions: Ketorolac Tromethamine [Toradol] 10 mg PO Q6H PRN #20 tablet PRN Reason: Knee pain Ondansetron [Zofran Odt] 4 mg PO Q8H #10 tab.rapdis Allergies/Adverse Reactions: Allergies codeine Adverse Reaction (Verified 07/02/18 12:55) FEELS LIKE NEEDLES IN BACK OF NECK Home Medications: Ambulatory Orders Ketorolac Tromethamine [Toradol] 10 mg PO Q6H PRN #20 tablet 07/02/18 Ondansetron [Zofran Odt] 4 mg PO Q8H #10 tab.rapdis 07/02/18 Disposition Discussed With: Patient, Family
[2018-07-02] MEDS: TORADOL IM STA (15:12)
[2018-07-02] MEDS: ZOFRAN 4 MG/2 ML IM STA (15:13)
--- NOTE | 2018-07-02 15:40 | DI ---
Exam: Four views of the left knee. Comparison: None available. Reason for exam: Pain after fall. FINDINGS: No acute fracture or dislocation. The joint spaces appear well maintained. No unexplaine d calcific soft tissue density or radiopaque retained foreign body. Impression: No acute fracture or dislocation in the left knee
== END 2018-07-02 16:15 | disposition home or self-care (01) ==
LOC: ED 12:51
DX: S86.812A Strain of other muscle(s) and tendon(s) at lower leg level, left leg, initial encounter (principal); W00.0XXA Fall on same level due to ice and snow, initial encounter; F17.210 Nicotine dependence, cigarettes, uncomplicated
CPT/HCPCS: 96372; 99283

== ENCOUNTER 2019-09-06 17:21 | Inpatient (IN) ==
[2019-09-06] MEDS ORDERED: TYLENOL PO PRN (18:05)
[2019-09-06 18:07] VITALS: BMI 22.5
[2019-09-06] MEDS ORDERED: VENTOLIN HFA (PER PUFF-WITH SPACER) IH PRN (18:13)
--- NOTE | 2019-09-06 19:00 | PCM ---
Chief Complaint Chief Complaint: Cough/Shortness of breath History of Present Illness History of Present Illness: 29 yr old CM presented to outpatient [facility] clinic today at 1500 reporting 2 week history of inability to breath, SOA, cough and worsening symptoms. He has been trying to avoid going out, practicing social distancing. He has used robitussin, vicks chest rub, mucinex DM, ibuprofen, albuterol inhaler (from family member), neb treatments from family member as well. He noted that this has steadily worsened with time unto his presentation today. He noted that at 3 am today he started to have pain in his left anterior chest and could not talk, could not take deep breath and was concerned that he was having KS. He has never felt this miserable in his life. has been sick, not as sick as the patient but sick none the less. Both of them smoke. He notes he has not been smoking as much lately and none in the past 3 days. [place], has not had many contacts, has been isolating. Denied marijuana, denied cocaine, denied meth, denied ETOH and other illict substances. HR in clinic was 116 today, RR was 22, he has family history of cardiac disease on father side and has had some HTN at times himself. He has had flu shot this year. Patient was 98% O2 in clinic. He reports SOA, PND, orthopnea, myalgias, N/V/D. He notes vomiting has been sporadic, nausea worse than the emesis. Emesis has been non bloody, mostly after coughing. Feels better sitting with arms above head. He feels fingers going numb/tingling over last 48 hours. He was hyperventilating in the room, felt worse symptoms along the left anterior chest and into the left shoulder. Decreased po intake for solids tolerating liquids. Sx not responding to albuterol/otc meds. I sent him to the hospital for ddimer, cbc, cmp, crp, ct PE protocol as he appeared to have concern for PE based on modified wells criteria. Pain with inspiration, no pain in chest within activity. Denied hemoptysis. He has some trigger point pain down lateral aspect of the left arm. After talking about other things, he was breathing less significantly. He noted he talked with his mother, she thought he may have a pinched nerve. No skin rash except small rash left forearm from abrasion while helping mother. Anosmia, dysgusia, noted. Concerning for possible COVID-19 based on the s/sx presented today. He has mild rhinorrhea/post nasal drainage, cough/congestion/myalgias. Every day he has worsened and he is now reporting day 12 ( over phone thought day 10-12). He denies calf pain. Modified well score of 6 points, moderate risk group 16.2% of PE based on ED population of people. Because his score was >4 he had ~28%incidence of PE. I thus ordered CT PE protocol. With his 12 day history of SOA/cough/congestion/VAZQUEZ/N/V/D, risks of PE of 16.2%, back pain, body aches, chills, myalgias, 10-12 day worsening URI chest discomfort, worsening SOA, ANXIETY, TACHYCARDIA, tachypnea, chest pain I sent to hospital for further w/u. He was worried for pneumonia. I discussed I was concerned with PE, pneumothorax, with pneumonia and with COVID-19. Based on the clinical presentation, he met SIRS criteria based on HR>100 and RR >20. Based on heckerling rule patient had a LR of 7.2 and post test probability of pneumonia of 27%. CT was ordered, CXR was initially ordered but then cancelled due to concern for possible PE. We discussed COVID-19, discussed drug use (declined). At around 1630 I found out that WBC 24.69, hgb 14.8, plt 439. Neutrophil 79% and lymphocytes 9.0% (low), Ddimer was normal at 291.63, sodium normal 136.7, K+ normal 3.86, CO221.5, Cr 0.96, glucose 107.1, alk phos 164.3 and mildly elevated. Albumin was normal at 5.07. I personally looked at the CT scan images and saw a multifocal pneumonia with small peripheral regions of consolidation/ground glass process. Regions right middle lobe, right lower lobe and left loewr lobe. I personally contacted the radiologist and he said the images were not diagnostic of COVID-19 imaging but he had pneumonia bilaterally. His alk phos is up, ddimer was normal, AST/ALT within normal limits which were reassuring. I contacted the patient and admitted him to the hospital as inpatie nt for further w/u. He gave permission to speak to . I called his number and she answered. He was relayed to hospital and admitted to SCU. I ordered procalcitonin, lactate, LDH, blood cultes x 2, ferritin (crp ordered earlier), UDS, urine legionella, urine pneumonia. With his chest pain, I also ordered ck/Troponin, Telemetry and EKG. I reviewed the labs above. His N:L ratio was 8.8 using %s instead of ANC/ANL. I discussed case with ED provider, I have ordered oral pain meds, started patient on azithromycin/rocephin to cover for community pneumonia and order labs for tomorrow am. ABG showed 7.448/32.1/85/22.2/23. This represented a primary Respiratory Alkalosis with Secondary Metabolic Alkalosis. Lactic acid was normal 1.43, procalcitonin was negative 0.15, ferritin was mid to high normal at 300. Flu was negative, RSV was negative. Sars-COV-2 testing pending. Troponin, CK and CRP pending. Admitted to SCU and I personally collected RSV/FLU and Sars-Cov-2. Exam (MORE DETAILED THAN BELOW): Constitutional: Appearance-Mild respiratory distress, tachpypnea, whining/crying with difficulty catching breath. Orientation- Oriented x 3, alert Gait-Normal pace, normal arm movement. Build and Nutrition-[normal habitus] General- Patient is crying, scared, tachypneic during interview and exam. Integumentary: General-No rashes, ulcers or lesions. Palpation- Normal skin moisture/turgor. Skin is warm to touch, appropriate. Capillary refill is normal bilateral Upper and lower extremity. Head/Neck: Head- normocephalic and atraumatic. Neck- without visible/palpable lumps or pulsations. Palpation- No bony tenderness about head/neck along frontal, occipital, temporal, parietal, mastoid, jawline, zygoma, orbit or any other location. NO temporal artery tenderness. No TMJ tenderness. Neck Supple. Thyroid-No thyromegaly, no nodules Eye: Bilaterally PERRLA, EOMI. No discharge. Upper and lower eyelids are normal. Sclera/conjunctiva normal without discharge. Cornea is normal and clear. Lens is normal. Eyeball appears normal. No ciliary flushing, no conjunctival injection. ENMT: Pinna- normal without tenderness or erythema. External auditory canal Left- normal without erythema or discharge, no excessive cerumen. External auditory canal Right-normal without erythema or discharge, no excessive cerumen. TM left- Mccrary/pearly, normal light reflex and anatomy TM Right- Mccrary/pearly, normal light reflex and anatomy Hearing Assessment-normal to conversational speech. Nose and sinus- No sinus tenderness along frontal/maxillary region. External appearance normal and midline. Nares- bilateral quiet airflow, no discharge. Nasal mucosa- No bleeding noted and no ulcerations observed. erythematous moist. Turbinates boggy. Collected Nasopharyngeal swabs for RSV/Sars-Cov-2 and a high nasal for FLU PCR. Lips- normal color, moist without cracks/lesions Oral Cavity/Palate- hard/soft palate intact without lesions, oral mucosa pink and moist. Dentition assessed and discussed need for appropriate oral care. Tongue normal midline. Oropharynx- no pharyngeal erythema, Uvula midline. No post nasal drip. No exudate. Salivary glands- Non tender to palpation CHEST/LUNG: Inspection- symmetric chest wall no pectus deformity. Increased effort, tachypneic, mild distress, no overt use of accessory muscles. Palpation- tender along rib line L>R. Non tender sternum. Pain in left lateral neck, pain in region inferior to clavicle. Appears reproducible. No abnormal pulsations. Auscultation- Breath sounds coarse/diminished throughout all lung sewell. Tracheal sounds, bronchial sounds overlying sternum, Bronchovessicular sounds between scapulae posteriorly, vessicular breath sounds decreased, coarse. He has rhonchi, rales throughout. No egophany, no whispered pectoriloquy. Adventitious sounds- wheezes throughout, rales bibasilar but sounds throughout, rhonchi scattered. CARDIOVASCULAR: Carotid artery- normal, no bruits or abnormal pulsations. Jugular vein- no pulsations. Palpation/Percussion- Normal PMI, no palpable thrill Auscultation- Regular rate and rhythm. No murmur noted in sitting, supine positions. Extremities- no digital clubbing, cyanosis, edema, increased warmth. ABDOMEN: Inspection- normal and no visible pulsations. Normal contour. Auscultation- Bowel sounds normal, no abdominal bruits. Palpation/Percussion- soft, non-tender, no rebound tenderness, no rigidity (guarding), no jar tenderness, no masses. Liver-no hepatomegaly, Spleen no splenomegaly, Hernias- none. Rectal not examined. Peripheral Vascular: Upper extremity Left- Normal temperature with pink nailbeds and no ulcerations. Upper extremity Right- Normal temperature with pink nailbeds and no ulcerations. Lower extremity- Normal temperature with pink nailbeds and no ulcerations. DP pulses 2+ bilaterally. Pedal hair intact. Normal capillary refill. Edema- No edema. Musculoskeletal: Generalized-No generalized swelling or edema of extremities, no digital clubbing or cyanosis, neurovascularly intact all four extremities. Upper extremity- Symmetrical posture. No visible deformity. Normal sensation along medial and lateral upper extremity proximally and distally. NO tenderness overlying shoulder, lateral/medial epicondyle. Software Project Engineer 5/5 and strength 5/5 bilateral UE. Elbow palpated, no tenderness overlying olecranon. Normal supination, pronation to active/passive ROM and to resisted rotation. Bicep insertion/tricep insertion appear normal without obvious pathology. Rotator cuff evaluated and intact. Normal wrist ROM bilaterally. Normal hand movement, intrinsic muscles of hands normal. No tenderness to palpation of hands/wrists/elbows. He has no pain along cervical/thoracic spine. He has trigger point pain within left trapezius. Tender to palpation. ?Refered pain. Lower extremity- Hip: Not tender to palpation, no pain, no swelling, edema or erythema of surrounding tissue, normal strength and tone. Normal appearing hip ROM bilaterally without pain. Knee: Knee ROM normal. No tenderness overlying trochanters, no tenderness about patella, quad tendon, patellar tendon. No tenderness at tibial tuberosity. Ankle: normal ROM not tender to palpation along medial/lateral malleolus. Foot: Normal movement of toes, no tenderness bilateral feet/toes. Normal foot type. Spine/Ribs- No deformities, masses or tenderness, no known fractures, normal strength, Normal ROM. Normal stability No tenderness along C/T/L spine. Normal appearing ROM about spine. Neurological: General- Moves all 4 extremities symmetrically. Symmetrical face and body posture. Cranial nerves- individually evaluated II-XII and intact. PERRLA, Normal EOMI, visual/special senses appear intact, Face is symmetrical and normal sensation/movement, normal tongue, normal strength/posture of neck musculature. Reflexes- intact with DTR 2+ patellar, Achilles, bicep, brachial, tricep. Ankle clonus normal with 2 beats. Strength- 5/5 bilateral UE and LE. Soft touch- intact bilateral UE and LE. Temperature sensation- intact bilateral UE and LE. Neuropsych: Oriented- Person, place, time. (AAOx3), Mood/affect- angry, irritable, saddened, pain response. He is scared has SOA that is bothersome to him. Limited ability to articulate. Speech-Semi pressured, whining speech, pleading speach. Limited language, able to provide entire history himself. Thought content- Pleading. limited ability to perform basic computations due to his acute state. Associations- intact, no SI/HI, no hallucinations, delusions, obsessions. Judgment/insight- Questionable. Lymphatic: Head/Neck- normal size and non tender to palpation. Axillary- normal size and non tender to palpation. Femoral and Inguinal- normal size and non tender to palpation. Review of Systems Constitutional: Reports fever, chills, weakness, sweats, fatigue and loss of appetite Eyes: Denies blurred vision, double-vision, discharge, itching, pain, redness and photophobia Ears: Reports other; Denies pain, bleeding, drainage, ringing and hearing loss Nose: Reports congestion, discharge and other (anosmia); Denies bleeding Throat: Reports pain; Denies swelling and voice change Mouth: Denies bleeding, pain, swelling and other Respiratory: Reports cough, shortness of air, wheeze and pain with breathing; Denies hemoptysis Cardiovascular: Reports chest pain (left upper chest), diaphoresis, PND and orthopnea; Denies left arm pain, edema, palpitations and syncope Gastrointestinal: Reports abdominal pain, nausea, vomiting (Several days a few times per day, non bloody. ) and diarrhea; Denies melena, hematemesis, hematochezia, dysphagia and constipation Genitourinary: Denies dysuria, hematuria, frequency, incontinence, flank pain, penile discharge, testicular pain and testicular swelling Neurological: Reports headache, dizziness and weakness; Denies seizure, numbness, speech difficulty, problems with walking, tremor, fainting and other Musculoskeletal: Reports pain and other (generalized achiness); Denies swelling in joints Skin: Denies rash, pruritus, lacerations, wounds, bruising and other Immunology: Denies hives, itching, frequent infections, difficulty healing and other Hematology: Denies easy bruising, easy bleeding, swollen glands and other Endocrine: Denies weight changes, cold intolerance, heat intolerance, excessive thirst, excessive hunger, polyuria and other Psychiatric: Denies depression, anxiety, sleeplessness, hopelessness, suicidal, hallucinations and other Habits: Reports tobacco use; Denies substance use, alcohol use and other Allergies Allergies Allergy/AdvReac Type Severity Reaction Status Date / Time codeine AdvReac FEELS LIKE Verified 09/06/19 15:14 NEEDLES IN BACK OF NECK [facility] Medical History ADHD Arthritis Bulging lumbar disc Hypertension Family History FATHER Hypertension CAD (coronary artery disease) Other COPD (chronic obstructive pulmonary disease) Parkinsons Social History Smoking and tobacco status: Current every day smoker Substance use type: does not use History of recent travel: No Medications Medications: Medications Generic Name Dose Route Start Last Admin Trade Name Freq PRN Reason Stop Dose Admin Acetaminophen 650 mg 09/06/19 18:05 Tylenol PO Q4H PRN Mild Pain/fever Enoxaparin Sodium 40 mg 09/06/19 18:30 Lovenox SUBCUT DAILY [facility] Sodium Chloride 1,000 mls @ 110 mls/hr 09/06/19 18:30 Sodium Chloride IV .Q9H6M [facility] CEFTRIAXONE/D5W 1 GM PREMIX 1 gm in 50 mls @ 75 mls/hr 09/06/19 18:30 Rocephin 1 Gm/50 Ml D5w IV 09/09/19 18:29 DAILY [facility] Azithromycin 500 mg/ Sodium 250 mls @ 250 mls/hr 09/07/19 09:00 Chloride IV 09/10/19 08:59 DAILY [facility] Body Composition Height: 5 ft 10 in Weight: 157 lb Body Mass Index (BMI): 22.5 Vital Signs Temperature: 98.9 F Pulse Rate: 123 Respiratory Rate: 22 O2 Sat by Pulse Oximetry: 96 Physical Examination Appearance: Reports Ill-appearing and No pain distress; Denies Well-nourished, Obese, Thin and Cachectic Ill-appearing: Severe Pain Distress: Moderate Eyes: Denies EMMY, EOMI, Conjunctiva clear, Conjunctiva inflammed, Conjunctiva pale, Right pupil size and Left pupil size ENT: Denies Ears normal, Nose normal, Oropharynx normal, TMs [place], Rhinorrhea, Epistaxis, Erythema, Exudate and Dry mucosa Neck: Supple Respiratory: Reports Breath sounds diminished, Crackles, Rhonchi and Wheezes Cardiovascular: Reports RRR, Pulses normal, No rub, No murmur and Tachycardia; Denies Irregular rhythm, Bradycardia, Abnormal pulses and Murmur Musculoskeletal: Reports Normal strength, ROM intact, No edema and No calf tenderness; Denies Limited ROM Skin: Reports Dry Neurological: Reports Sensation intact, Motor intact, Reflexes intact, Cranial nerves intact, Alert and Oriented Psychiatric: Reports Anxious and Depressed (Pleading. ); Denies Affect appropriate Lab/Tests/Diagnostic Imaging Lab/Tests/Diagnostic Imaging: Orders Category Date Time Status ADMIT PATIENT INPATIENT .TO SCU (MONITORED BED) ADMISSION 09/06/19 18:12 Ordered ABG DRAW REQUEST Routine CARDIO 09/06/19 18:08 Ordered EKG-(IP & OP ONLY) Stat CARDIO 09/06/19 18:05 Ordered OXYGEN Routine CARDIO 09/06/19 18:06 Ordered ACTIVITY .Up ad Liz CARE 09/06/19 18:08 Ordered CASE MANAGEMENT CONSULT ONCE CARE 09/06/19 18:05 Ordered INTAKE & OUTPUT Q8HR CARE 09/06/19 18:08 Ordered Notify RT of Treatment ONCE CARE 09/06/19 18:07 Ordered TELEMETRY MONITORING TELE CARE 09/06/19 18:12 Ordered VITAL SIGNS Q8HR CARE 09/06/19 18:05 Ordered REGULAR DIET DIETARY 09/06/19 Dinner Ordered ABG Stat LAB 09/06/19 18:08 Ordered BLOOD CULTURE Stat LAB 09/06/19 18:08 Ordered CBC W/ AUTO DIFF DAILY@0600 LAB 09/07/19 06:00 Ordered CBC W/ AUTO DIFF DAILY@0600 LAB 09/08/19 06:00 Ordered COMPREHENSIVE METABOLIC PANEL DAILY@0600 LAB 09/07/19 06:00 Ordered COMPREHENSIVE METABOLIC PANEL DAILY@0600 LAB 09/08/19 06:00 Ordered CREATINE KINASE Q8H LAB 09/07/19 00:15 Ordered CREATINE KINASE Q8H LAB 09/07/19 08:15 Ordered FERRITIN Stat LAB 09/06/19 Ordered FLU A/B MOLECULAR Stat LAB 09/06/19 18:13 Uncollected Lactic Acid Dehydrogenase Stat LAB 09/06/19 Ordered RSV Stat LAB 09/06/19 18:13 Uncollected TROPONIN I Q8H LAB 09/07/19 00:15 Ordered TROPONIN I Q8H LAB 09/07/19 08:15 Ordered 1 gm/50 ml IV Daily El MEDS 09/06/19 18:30 Ordered Ceftriaxone/D5w 1 gm Premix [Rocephin 1 gm/50 ml D5w] 1 gm in 50 ml IV DAILY Acetaminophen [Tylenol] MEDS 09/06/19 18:05 Ordered 650 mg PO Q4H PRN Albuterol Inhaler(with Spacer) [Ventolin Hfa (Per Puff- MEDS 09/06/19 18:13 Ordered with Spacer)] 2 puff IH Q6H PRN Azithromycin Inj [Zithromax] 500 mg MEDS 09/07/19 09:00 Ordered 0.9 % Sodium Chloride [Sodium Chloride] 250 ml IV DAILY Enoxaparin Sodium [Lovenox] MEDS 09/06/19 18:30 Ordered 40 mg SUBCUT DAILY Sodium Chloride 0.9% [Sodium Chloride] 1,000 ml MEDS 09/06/19 18:30 Ordered IV 110 mls/hr RESUSCITATION STATUS Routine OTHERS 09/06/19 18:07 Ordered Medications Generic Name Dose Route Start Last Admin Trade Name Freq PRN Reason Stop Dose Admin Acetaminophen 650 mg 09/06/19 18:05 Tylenol PO Q4H PRN Mild Pain/fever Enoxaparin Sodium 40 mg 09/06/19 18:30 Lovenox SUBCUT DAILY [facility] Sodium Chloride 1,000 mls @ 110 mls/hr 09/06/19 18:30 Sodium Chloride IV .Q9H6M [facility] CEFTRIAXONE/D5W 1 GM PREMIX 1 gm in 50 mls @ 75 mls/hr 09/06/19 18:30 Rocephin 1 Gm/50 Ml D5w IV 09/09/19 18:29 DAILY [facility] Azithromycin 500 mg/ Sodium 250 mls @ 250 mls/hr 09/07/19 09:00 Chloride IV 09/10/19 08:59 DAILY [facility] Laboratory Results - last 24 hr 09/06/19 09/06/19 09/06/19 15:47 18:08 18:30 Puncture Site Rrad O2 Saturation 97.0 ABG pH 7.448 ABG pCO2 32.1 L ABG pO2 85.0 ABG HCO3 22.2 ABG Total CO2 23 ABG Base Excess -2 Leno Test + FiO2 % 21.0 Lactic Acid Ferritin 300.00 Procalcitonin Influ A Molecular Assay Negative by naat Influ B Molecular Assay Negative by naat RSV Antigen Negative by naat 09/06/19 09/06/19 18:50 18:51 Puncture Site O2 Saturation ABG pH ABG pCO2 ABG pO2 ABG HCO3 ABG Total CO2 ABG Base Excess Leno Test FiO2 % Lactic Acid 1.43 Ferritin Procalcitonin 0.15 Influ A Molecular Assay Influ B Molecular Assay RSV Antigen Laboratory Last Values Puncture Site Rrad 09/06/19 18:08 O2 Saturation 97.0 % (95-100) 09/06/19 18:08 ABG pH 7.448 (7.35-7.45) 09/06/19 18:08 ABG pCO2 32.1 mmHg (35-45) L 09/06/19 18:08 ABG pO2 85.0 mmHg (85-100) 09/06/19 18:08 ABG HCO3 22.2 (22.0-26.0) 09/06/19 18:08 ABG Total CO2 23 (22.0-28.0) 09/06/19 18:08 ABG Base Excess -2 (-2.0-2.0) 09/06/19 18:08 Leno Test + 09/06/19 18:08 FiO2 % 21.0 % 09/06/19 18:08 Lactic Acid 1.43 mmol/L (0.7-2.1) 09/06/19 18:51 Ferritin 300.00 ng/mL (17.9-464.0) 09/06/19 15:47 Procalcitonin 0.15 ng/mL (<0.05) 09/06/19 18:50 Influ A Molecular Assay Negative by naat (NEGATIVE) 09/06/19 18:30 Influ B Molecular Assay Negative by naat (NEGATIVE) 09/06/19 18:30 RSV Antigen Negative by naat (NEGATIVE) 09/06/19 18:30 CT Chest: IMPRESSION: 1. No pulmonary embolus. 2. Multifocal small consolidative, ground-glass and tree-in-bud opacities with peribronchial thickening most compatible with bronchopneumonia. No lobar consolidation Labs from earlier today reviewed: CBC WBC 24.69, hgb 14.8, plt 438, neutrophil 79%, lymphocytes 9%. D dimer 291.63, sodium 136.7, K+ 3.86, co2 21.5, cr 0.96, glucose 107.1, alk phos 164. 3, albumin 5.07. CRP pending. Assessment (1) Multifocal pneumonia: Status: Acute Code(s): J18.9 - Pneumonia, unspecified organism SNOMED Code(s): 674866889 (2) SIRS (systemic inflammatory response syndrome): Status: Acute Code(s): R65.10 - Systemic inflammatory response syndrome (SIRS) of non-infectious origin without acute organ dysfunction SNOMED Code(s): 267494721 (3) Tachycardia: Status: Acute Code(s): R00.0 - Tachycardia, unspecified SNOMED Code(s): 3403970 (4) Leukocytosis: Status: Acute Code(s): D72.829 - Elevated white blood cell count, unspecified SNOMED Code(s): 719268877 (5) Tachypnea: Status: Acute Code(s): R06.82 - Tachypnea, not elsewhere classified SNOMED Code(s): 068231209 (6) Smokes 1 pack of cigarettes per day: Status: Acute Code(s): F17.210 - Nicotine dependence, cigarettes, uncomplicated SNOMED Code(s): 60668183 (7) Anterior chest wall pain: Status: Acute Code(s): R07.1 - Chest pain on breathing SNOMED Code(s): 680330096 Plan Plan: Multifocal Pneumonia: CT showed small consolidative, ground glass opacities, tree-in-bud opacities w/ peribronchial thickening with bronchopneumonia. DDx initially was CAP (viral/flu, bacterial), PE, COVID-19 as most likely etiologies. Chest pain seemed more pleuritic and concert with trapezius related pain. He denied any illict substance use. Tirso was checked and no recent opiates. NO s/sx of pneumothorax. He has met SIRS criteria has air hunger, RR remains >20 and HR >100. Blood cultures pending. CRP pending. Procalc normal, Lactic acid negative. Ferritin within normal zones. I have ordered urine tests for antigens to legionella and strep pneumonia. After review of imaging/labs, multifocal pneumonia is most likely. I will gently hydrate overnight with maintenance fluids of 110 ml/min of NS, monitor telemetry. Lovenox for DVT prophy. PORT score of 29 (based on age) and 0.1% mortality based on score alone. However with concern for COVID and decompensation, patient is tachycardic, tachypneic and per [facility] reasonable patient to admit and monitor. Multifocal imaging, SOA, chest pain are known. Personally reviewed the CT images. Discusssed them with radiology. The patient does not have LAD which is odd for his pneumonia. I discussed he did not have them on exam either. At present the patient has s/sx of concern for COVID-19 and he will be made a PUI. - Admit inpatient SCU - Telemetry - LABS: - RSV/FLU/Sars-Cov2 ([id number] state test code) - Troponin I/CK - Urine ag legionella and S. Pneumonia. - UDS (denied drug use). - CBC/CMP in am tomorrow. - EKG - Antibiotics: - Azithromycin 500mg daily x 5 days - Rocephin 1 gram daily x 5 days (change to cefdinir at d/c). - [place] 7.5/325 for pain. Left shoulder pain/Anterior chest pain: The patient presents with pain within the left posterior shoulder. The trapezius is the common source of trigger point pain and may worsen due to stress, dehydration, illness, poor sleep, poor posture with forward head most likely etiology. We discussed conservative management, to avoid NSAIDS for now. [place] 7.5/325 for pain. He has had this according to [place] [employer] (printed). Leukocytosis: At present N:L ratio is >3.5 which is a concerning finding. Alk phos is elevated, AST/ALT normal. DVT prophy: Lovenox 40mg subcut daily. Patient has refused these. He has refused CLAIR/SCD with nursing as well. - RBA to this d/w patient. Benefit for clot reduction d/w patient. GI prophy: Not indicated at this time. Pain: Back pain, left shoulder pain. Discussed with patient limited use of o piates to help w/ air hunger. [place] 7.5/325 q 8 hours. Diet: Normal diet. Tobacco: Cessation discussed today for 2 minutes. We reviewed lifestyle choices and discussed quitting. Ready to quit status discussed. The risks and hazards of continued tobacco abuse were discussed with the patient today and total tobacco cessation as recommended. It was clearly and unambiguously explained that continued tobacco usage will adversely affect overall morbidity and mortality of the patient. Patient was informed that tobacco use can lead to numerous cancers, worsening of cardiovascular and pulmonary systems and that lung damage is often permanent and irreversible. I advised the patient to inform me if any further assistance is requested, as we can offer counseling services, nicotine replacement inhaled, patch, lozenge, gum, or prescription medications to include Chantix or Wellbutrin for assistance. I will reassess the interest in tobacco cessation at the next and all subsequent visits. - Discussed nicotine patch. Declined for now. Code Status: Full Visitation: NONE due to current COVID-19 Pandemic. Disposition: Current ddx includes multifocal pneumonia, etiology unknown. SIRS + and concern for sepsis with current imaging and presentation. With COVID-19, patient will be admitted for pneumonia with IV abx, gentle fluid hydration. Flu neg, RSV neg, urine ag for pneumonias have been sent. Nasal swab for SARS-COV-2 has been personally collected and sent. Expected length of stay 48-72 hours. Await COVID-19 testing, monitor for s/sx of worsening respiratory failure. In total >70 minutes spent today on admission of patient to hospital, not including documentation.
[2019-09-06] MEDS ORDERED: ZOFRAN ODT PO PRN (19:18)
[2019-09-06] MEDS: NORCO 7.5-325 PO SCH (19:28)
[2019-09-06] MEDS: ZOFRAN ODT PO PRN (19:28)
[2019-09-06] MEDS: SODIUM CHLORIDE 1,000 ML IV SCH (19:35)
[2019-09-06] MEDS: LOVENOX SUBCUT SCH (19:35)
[2019-09-06] MEDS: ROCEPHIN 1 GM/50 ML D5W 1 GM/50 ML BAG IV SCH (19:35)
[2019-09-06] MEDS ORDERED: MORPHINE 2 MG/ML SYRINGE IVP STA (22:40)
[2019-09-07 02:57] LABS: HEMATOCRIT 34.6 % (42.0-52.0)
[2019-09-07] MEDS: NORCO 7.5-325 PO SCH ×3 (02:59→18:39)
[2019-09-07] MEDS: SODIUM CHLORIDE 1,000 ML IV SCH ×2 (05:02→16:54)
--- NOTE | 2019-09-07 07:24 | PCM.PROG ---
Date Seen by Provider: 09/07/19 Time Seen by Provider: 07:10 Subjective: 29 yo CM HD #2 Abx Day #2/5 azithromycin 500 IV daily, Rocephin 1G IV daily. I was called overnight with pain in left chest not improving. He was on [place]co 7.5/325 q 8 hours (REPAIRER KILN CAR was negative, UDS was negative) and this was inadequate. I was contacted by nursing and increased pain medication to morphine 2mg q 8 hours (22:40 conversation)(. This am I was contacted again by nursing, slept better overnight, vitals were improved/stable, he was between ST and NSR on telemetry through the night. Still w/o smell/taste. No loose stools. Voiding. He is currently on maintenance fluids 110ml/hr based on his weight and gentle hydration to prevent fluid excesses. At 5:45 this am I was contacted by nursing. The patient had talked with his mother and he is now agreeable to lovenox, and he is requesting a nicotine patch. He did not want CLAIR/SCD last night, did not want lovenox last night noting "I can walk myself" and he did not want a shot into his abdomen. He had a critical CKMB of 5.180 and CK of 332.1 last pm and 8 hours later this was improved to 2.74/228.2. Troponin remained negative <0.012 x 2. EKG is collected and cardiology has this to read. Reviewed labs this am, his WBC improved from 24.69 to 20.42. His hgb dropped a little to 12.3, down from 14.8 and his plt down from 439 to 339. The drop in all cell lines suggests some dilutional effect. His Neutrophil:Lymphocyte ratio is currently 6.9 down from 8.8, again suggesting some improvement. Per nursing this am he is coughing more, he is coughing up mucus, brown sputum and is feeling somewhat better. They noted clear lungs on examination, I will re-evaluate this finding as he had crackles/rhonchi and wheezing on exam yesterday. CMP this am stable Sodium 134.9, K+ 3.51, CL 101.2, BUN 12.5, Cr 0.68, glucose 123.5. AST 38.9, ALT 21.9. Calcium looked a little low at 8.31 but when corrected for the albumin of 3.83 the calcium was normalized at 8.4. No new imaging. EKG was obtained: Vent rate 110, WA 130 ms, qrs 88ms, QTC 470ms, PRT 81/63/62. NST, NL axis, normal visual WA/QRS/T. Some movement artifact. No acute ST/T changes. No peaked T. Sinus tach with otherwise normal EKG. While documenting, I was called to room as patient was c/o anterior left subclavicular chest pain, reproducible with palpation. He was profane, cursing, shouting, rude/hostile toward my nurse. He was not hostile toward me but I had to repeatedly ask him to control his language. In the room he was crying, blubbering, sobbing, whining. He commented about his negative luck. I asked what he meant he said it did not matter. He asked for pain meds as his chest "F-ing" hurt. I asked to control language. NO pathology noted on CT yesterday other than multifocal pneumonia. He has had no trauma, no known injury. ?Costochondral pain from coughing is possible. He is adamant that he does not want lovenox. You have put shots into my arms, you are not putting anything into my abdomen. I asked why he thought we were here. We are concerned for his pneumonia, concerned for his health, concerned for COVID-19. I informed him that we needed respect and for him to not act negatively toward the staff. He noted he would apologize to the nurse. Biggest complaint is anterior chest wall pain. His vitals look better. Remains afebrile. Today is day 13 per patient and 11-12 per . REVIEW OF SYMPTOMS: (Positives bolded) General: weight loss, fever, chills, night sweats, fatigue, appetite loss HEENT: blurry vision, eye pain, eye discharge, dry eyes, decreased vision, sore throat tinnitus, bloody nose, hearin gloss, sinus pain/pressure, ear pain/pressure. Respiratory: shortness of breath, cough, hemoptysis, wheezing, pleurisy, SPUTUM PRODUCTION Cardiovascular: chest pain (left infraclavicular), Tenderness to palpation. ?costochondral pain vs muscular pain from coughing, PND, palpitation, edema, orthopnea, syncope, swelling of extremities Gastro: Nausea, vomiting (RESOLVED), diarrhea (REPORTED BUT NONE IN HOSPITAL), hematemesis, abdominal pain, constipation Genito: hematuria, dysuria, glycosuria, hesitancy, frequency, incontinence Musckelo: Arthralgia, myalgia, muscle weakness, joint swelling, Skin: rash, pruritis, sores, nail changes, skin thickening, change in wart/mole, itching, rash, new lesions, pruritus, nail changes Neuro: Headache generalized 3/10 non radiating, no photophobia. , Migraine, numbness, ataxia, tremor, vertigo, weakness, memory loss, Irritability, dizziness Endocrine: excessive thirst, polyuria, cold intolerance, heat intolerance, goiter Psychiatric: depression, anxiety, anti-depressants, alcohol abuse, drug abuse, insomnia, change in sleep pattern and mood changes Heme/lymph: easy bruising, bleeding gums, blood clots, swollen glands, lymphedema, Allergic/immune: allergic rhinitis, hay fever, asthma, hives Objective: Last Vital Signs Temp 99.1 F 09/07/19 05:15 Pulse 95 H 09/07/19 05:15 Resp 18 09/07/19 05:15 BP 122/79 09/07/19 05:15 Pulse Ox 96 09/07/19 05:28 Constitutional: Appearance- Acting in pain, clutching left anterior chest just under clavicular line. Crying, sobbing, blubbering, profane. No respiratory distress, RR is actually better until he starts to get worked up and then RR increases back to 22-24 range. Orientation- Oriented x 3, alert Gait-Normal pace, normal arm movement. Build and Nutrition-[normal] General- Patient is angry, irritable, profane, semi-cooperative with the interview and exam. Was rude to staff. Refused lovenox. Integumentary: General-No rashes, ulcers or lesions. Palpation- Normal skin moisture/turgor. Skin is warm to touch, appropriate. Capillary refill is normal bilateral Upper and lower extremity. ENMT: Nasal mucosa- No bleeding noted and no ulcerations observed. [place], moist. Turbinates boggy erythematous. Lips- normal color, moist without cracks/lesions Oral Cavity/Palate- hard/soft palate intact without lesions, oral mucosa pink and moist. Dentition assessed [and poor]. Tongue normal midline. Oropharynx- no pharyngeal erythema, Uvula midline. No post nasal drip. No exudate. Salivary glands- Non tender to palpation CHEST/LUNG: Inspection- symmetric chest wall no pectus deformity. Tender along left pectoralis and into bicep. No tenderness at bicep insertion (more below), No tenderness at sternal border. Reproducible chest wall pain may be ?intercostal strain, costochondritis, pectoralis strain. Mildly increased effort, pain distress, not currently using accessory muscles. Palpation- nontender sternum, pain as noted above. No abnormal pulsations. Auscultation- Breath sounds diminished throughout all lung sewell but better aeration today. tracheal sounds, bronchial sounds overlying sternum, Bronchovessicular sounds between scapulae posteriorly, vessicular breath sounds auscultated and coarse. He has wheezing scattered LLL and RLL but better in upper lobes than yesterday. He has coughed up quite a bit of sputum in last 12 hours. Lungs appear to be improving today. Adventitious sounds- wheezes, rales/crackles still bilaterally, rhonchi. bilaterally. CARDIOVASCULAR: Carotid artery- normal, no bruits or abnormal pulsations. Jugular vein- no pulsations. Palpation/Percussion- Normal PMI, no palpable thrill Auscultation- Regular rate and rhythm. No murmur noted in sitting, supine positions. Extremities- no digital clubbing, cyanosis, edema, increased warmth. ABDOMEN: Inspection- normal and no visible pulsations. Normal contour. Auscultation- Bowel sounds normal, no abdominal bruits. Palpation/Percussion- soft, non-tender, no rebound tenderness, no rigidity (guarding), no jar tenderness, no masses. Liver-no hepatomegaly, Spleen no splenomegaly, Hernias- none. Rectal not examined. Peripheral Vascular: Upper extremity Left- Normal temperature with pink nailbeds and no ulcerations. Upper extremity Right- Normal temperature with pink nailbeds and no ulcerations. Lower extremity- Normal temperature with pink nailbeds and no ulcerations. DP pulses 2+ bilaterally. Pedal hair intact. Normal capillary refill. Edema- No edema. Musculoskeletal: Generalized-No generalized swelling or edema of extremities, no digital clubbing or cyanosis, neurovascularly intact all four extremities. Upper extremity- Symmetrical posture. No visible deformity. Normal sensation along medial and lateral upper extremity proximally and distally. NO tenderness overlying shoulder, lateral/medial epicondyle. Stretcher Operator 5/5 and strength 5/5 bilateral UE. Elbow palpated, no tenderness overlying olecranon. Normal supination, pronation to active/passive ROM and to resisted rotation. Bicep insertion/tricep insertion appear normal without obvious pathology. Rotator cuff evaluated and intact. Normal wrist ROM bilaterally. Normal hand movement, intrinsic muscles of hands normal. No tenderness to palpation of hands/wrists/elbows. Normal shoulder ROM. Bicep tendon insertion not tender. Neurological: General- Moves all 4 extremities symmetrically. Symmetrical face and body posture. Cranial nerves- individually evaluated II-XII and intact. PERRLA, Normal EOMI, visual/special senses appear intact, Face is symmetrical and normal sensation/movement, normal tongue, normal strength/posture of neck musculature. Reflexes- intact bilateral UE, Stretcher Operator 5/5. Benavides negative. Neuropsych: Oriented- Person, place, time. (AAOx3), Mood/affect- irritable, anxious, grumpy, semi-hostile/aggressive. Using profanity, limited use of language today. He is emotionally speaking, whining speaking, sobbing speaking instead of having a rational conversation. He was not able to articulate well. We discussed his behavior and I asked that he not use profanity and that he apologize to my nurses. We are here to help him, we are here to make him feel better. He did not like the nurse. He wants pain meds. ?Seeking. His UDS was negative, his REPAIRER KILN CAR and [place] were negative. Speech-As above whining/crying. high pitched tone, vocal alcantar, whines with speach. Moaning speach. Profane and limited use of conversation today. Thought content- limited Associations- no SI/HI, but he did say maybe this will take me. I asked if he wanted to he said no he has a family but he has had this for 2 weeks and cannot take it anymore. I asked how he felt compared to yesterday and he said much better. I noted for him to focus on that and we are here to help him. He did calm down after that. I noted even w/ 24 hours you are already feeling better and not having as much pain, not having as much SOA. His ARCE is better, he slept some last night, which he said he has not done in a week. He reports no hallucinations, delusions, obsessions. Judgment/insight- Inappropriate. Lymphatic: Head/Neck- normal size and non tender to palpation. Axillary- normal size and non tender to palpation. Femoral and Inguinal- normal size and non tender to palpation. Laboratory Results - last 24 hr 09/06/19 09/06/19 09/06/19 15:47 18:08 18:30 WBC RBC Hgb Hct MCV MCH MCHC RDW Coeff of Gerard Plt Count Immature Gran % (Auto) Neut % (Auto) Lymph % (Auto) Luna % (Auto) Eos % (Auto) Baso % (Auto) Immature Gran # (Auto) Neut # (Auto) Lymph # (Auto) Luna # (Auto) Eos # (Auto) Baso # (Auto) Puncture Site Rrad O2 Saturation 97.0 ABG pH 7.448 ABG pCO2 32.1 L ABG pO2 85.0 ABG HCO3 22.2 ABG Total CO2 23 ABG Base Excess -2 Leno Test + FiO2 % 21.0 Sodium Potassium Chloride Carbon Dioxide Anion Gap BUN Creatinine Estimated GFR (MDRD) BUN/Creatinine Ratio Glucose Lactic Acid Calcium Ferritin 300.00 Total Bilirubin AST ALT Alkaline Phosphatase Total Creatine Kinase CK-MB (CK-2) CK-MB (CK-2) % Troponin I Total Protein Albumin Globulin Albumin/Globulin Ratio Procalcitonin Urine Opiates Screen Ur Oxycodone Screen Urine Methadone Screen Ur Propoxyphene Screen Ur Barbiturates Screen U Tricyclic Antidepress Ur Phencyclidine Scrn Ur Amphetamine Screen U Methamphetamines Scrn U Benzodiazepines Scrn Urine Cocaine Screen U Cannabinoids Screen Influ A Molecular Assay Negative by naat Influ B Molecular Assay Negative by naat RSV Antigen Negative by naat 09/06/19 09/06/19 09/06/19 18:40 18:50 18:51 WBC RBC Hgb Hct MCV MCH MCHC RDW Coeff of Gerard Plt Count Immature Gran % (Auto) Neut % (Auto) Lymph % (Auto) Luna % (Auto) Eos % (Auto) Baso % (Auto) Immature Gran # (Auto) Neut # (Auto) Lymph # (Auto) Luna # (Auto) Eos # (Auto) Baso # (Auto) Puncture Site O2 Saturation ABG pH ABG pCO2 ABG pO2 ABG HCO3 ABG Total CO2 ABG Base Excess Leno Test FiO2 % Sodium Potassium Chloride Carbon Dioxide Anion Gap BUN Creatinine Estimated GFR (MDRD) BUN/Creatinine Ratio Glucose Lactic Acid 1.43 Calcium Ferritin Total Bilirubin AST ALT Alkaline Phosphatase Total Creatine Kinase 332.1 H CK-MB (CK-2) 5.180 H* CK-MB (CK-2) % 1.5500 Troponin I < 0.012 Total Protein Albumin Globulin Albumin/Globulin Ratio Procalcitonin 0.15 Urine Opiates Screen Ur Oxycodone Screen Urine Methadone Screen Ur Propoxyphene Screen Ur Barbiturates Screen U Tricyclic Antidepress Ur Phencyclidine Scrn Ur Amphetamine Screen U Methamphetamines Scrn U Benzodiazepines Scrn Urine Cocaine Screen U Cannabinoids Screen Influ A Molecular Assay Influ B Molecular Assay RSV Antigen 09/06/19 09/07/19 09/07/19 22:45 02:50 02:50 WBC 20.42 H RBC 4.00 L Hgb 12.3 L Hct 34.6 L D MCV 86.5 MCH 30.8 MCHC 35.5 H RDW Coeff of Gerard 11.9 Plt Count 339 Immature Gran % (Auto) 0.4 Neut % (Auto) 81.7 H Lymph % (Auto) 11.9 Luna % (Auto) 5.5 Eos % (Auto) 0.2 Baso % (Auto) 0.3 Immature Gran # (Auto) 0.1 Neut # (Auto) 16.7 H Lymph # (Auto) 2.4 Luna # (Auto) 1.1 Eos # (Auto) 0.0 Baso # (Auto) 0.1 Puncture Site O2 Saturation ABG pH ABG pCO2 ABG pO2 ABG HCO3 ABG Total CO2 ABG Base Excess Leno Test FiO2 % Sodium 134.9 Potassium 3.51 Chloride 101.2 Carbon Dioxide 24.0 Anion Gap 13.21 BUN 12.5 Creatinine 0.68 Estimated GFR (MDRD) 138.00 BUN/Creatinine Ratio 18.38 Glucose 123.5 H Lactic Acid Calcium 8.31 L Ferritin Total Bilirubin 0.70 AST 38.9 ALT 21.9 Alkaline Phosphatase 116.0 D Total Creatine Kinase 228.2 H CK-MB (CK-2) 2.740 H CK-MB (CK-2) % 1.2000 Troponin I < 0.012 Total Protein 6.93 Albumin 3.83 Globulin 3.10 Albumin/Globulin Ratio 1.23 Procalcitonin Urine Opiates Screen Negative Ur Oxycodone Screen Negative Urine Methadone Screen Negative Ur Propoxyphene Screen Negative Ur Barbiturates Screen Negative U Tricyclic Antidepress Negative Ur Phencyclidine Scrn Negative Ur Amphetamine Screen Negative U Methamphetamines Scrn Negative U Benzodiazepines Scrn Negative Urine Cocaine Screen Negative U Cannabinoids Screen Negative Influ A Molecular Assay Influ B Molecular Assay RSV Antigen (1) Multifocal pneumonia: Status: Acute Code(s): J18.9 - Pneumonia, unspecified organism SNOMED Code(s): 318999352 (2) SIRS (systemic inflammatory response syndrome): Status: Acute Code(s): R65.10 - Systemic inflammatory response syndrome (SIRS) of non-infectious origin without acute organ dysfunction SNOMED Code(s): 974942404 (3) Tachycardia: Status: Acute Code(s): R00.0 - Tachycardia, unspecified SNOMED Code(s): 2620793 (4) Leukocytosis: Status: Acute Code(s): D72.829 - Elevated white blood cell count, unspecified SNOMED Code(s): 929510277 (5) Tachypnea: Status: Acute Code(s): R06.82 - Tachypnea, not elsewhere classified SNOMED Code(s): 307273783 (6) Tobacco use: Status: Acute Code(s): Z72.0 - Tobacco use SNOMED Code(s): 544495043 (7) Anterior chest wall pain: Status: Acute Code(s): R07.1 - Chest pain on breathing SNOMED Code(s): 208397934 Plan: Multifocal Pneumonia: CT yesterday showed small consolidative, ground glass opacities, tree-in-bud opacities w/ peribronchial thickening with bronchopneumonia. WE discussed ddx. I will repeat CT chest today. Repeat D dimer to evaluate for changes due to possible COVID-19, ferritin. CRP pending. DDx CAP (viral/flu, bacterial), PE, COVID-19 as most likely etiologies. Chest pain superficially along left subclavicular region stable with IV morphine. trapezius related pain is better. He denied any illict substance use, UDS was negative. He met SIRS criteria at admit, but now his vitals are stable. RR normal at 18, HR >100. Blood cultures pending. CRP pending. Procalc normal, Lactic acid negative. Ferritin within normal range. Urine tests for antigens to legionella and strep pneumonia pending. After review of imaging/labs, multifocal pneumonia remains most likely, COVID-19 testing pending. Tolerated gentle hydration overnight at 110 ml/min of NS. telemetry stable. I offered Lovenox for DVT prophy and he declined/denied it. EKG looked okay too. HD #2, ABX dAY #2 FOR ROCEPHIN 1 G daily and azithromax 500 daily. - Admit inpatient SCU - Telemetry - LABS: - RSV/FLU negative - Sars-Cov2 ([id number] state test code): PENDING - Troponin I/CK: NEGATIVE - Urine ag legionella and S. Pneumonia: PENDING - UDS: NEGATIVE - CBC/CMP: WBC improving (dilutional effect). CMP is stable. Repeat in am tomorrow. - Antibiotics: - Azithromycin 500mg daily x 5 days - Rocephin 1 gram daily x 5 days (change to cefdinir at d/c). - [place] 7.5/325 for pain. - Morphine 2 q 6 hours for pain - NS 110 Ml/hr. Left shoulder pain/Anterior chest pain: The patient has pain within the left posterior shoulder and along subclavicular region. Stable with morphine. I suspect ?costochondritis, pectoralis strain, intercostal muscle strain on top of his symptoms. Leukocytosis: N:L ratio remains >3.5 but improving. WBC has dropped. Patient appears to be doing better clinically. Alk phos normal now, was elevated, AST/ALT normal. Normal Ddimer, negative procalc, lactate, CT + pneumonia. SIRS + at admit, BC pending. + pneumonia. DVT prophy: Lovenox 40mg subcut daily ordered, patient continues to refuse this. In presence of nursing and with me personally. I will continue to discuss meaning behind this. He does not want CLAIR/SCD either. Documented. He is aware of risks of DVT. He assumes that risk. Nurse and myself have d/w patient several times. GI prophy: Not indicated at this time. Pain: Back pain, left shoulder pain. Discussed with patient limited use of opiates to help w/ air hunger/breathing. [place] 7.5/325 q 8 hours. [place] 2 q 6 (nurses discretion) Diet: Normal diet. Tobacco: Cessation discussed today for 1 minutes. We reviewed lifestyle choices and discussed quitting. Ready to quit status discussed. The risks and hazards of continued tobacco abuse were discussed with the patient today and total tobacco cessation as recommended. It was clearly and unambiguously explained that continued tobacco usage will adversely affect overall morbidity and mortality of the patient. Patient was informed that tobacco use can lead to numerous cancers, worsening of cardiovascular and pulmonary systems and that lung damage is often permanent and irreversible. I advised the patient to inform me if any further assistance is requested, as we can offer counseling services, nicotine replacement inhaled, patch, lozenge, gum, or prescription medications to include Chantix or Wellbutrin for assistance. I will reassess the interest in tobacco cessation at the next and all subsequent visits. - Discussed nicotine patch again this am - Using Nicoderm 21 mg patch daily. Code Status: Full Visitation: NONE due to current COVID-19 Pandemic. Disposition: Current ddx includes multifocal pneumonia, inciting agent unknown. SIRS + and concern for sepsis with current imaging and presentation. Vitals look more stable this am and overnight. Still waiting on BC, still waiting on COVID-19 testing. Patient will continue inpatient admission for pneumonia with IV abx, gentle fluid hydration. Still waiting on urine ag for pneumonias. Expected length of stay 48-72 more hours. Await COVID-19 testing, monitor for s/sx of worsening respiratory failure. In total >>35 minutes spent rounding wiht patient today. Addendum: 17:30-20:00 I Called after hours and talked with after hours emergency line. They told me to call local health dept. They gave me after hours line [phone] for local. I called and was given # . legal specialist and I discussed case and stated repeated testing would be warranted in this case. Ddimer is now elevated 604.82. His CT is clinically worse. Very lengthy discussion with [facility] virology, [facility] medical lab tech instructor and infectious disease provider from [facility]. I rounded on patient this am for >35 minutes and this pm outside of patient isolation room had 3 >20 minute long concersations. Rounded on patient from 17:30-20:00 in total. None of this listed time involved documentation. Lengthy discussion with patient/ this evening while in full PPE in patient room. Repeat swab for Sars-Cov-2. Sputum culture ordered, linezolid added. - Worsening pneumonia but clinically better. - I will add linezolid 600 BID to cover for possible MRSA pneumonia and to make sure his renal function is okay. - Ddimer returned elevated. CT PE yesterday, concern for renal disease. I will add US of all 4 limbs. - If remains clinically stable, I will d/c home tomorrow with 10 day home quarantine.
[2019-09-07] MEDS: LOVENOX SUBCUT SCH ×2 (08:02→08:17)
[2019-09-07] MEDS: NICODERM 21 MG TD SCH (08:09)
[2019-09-07] MEDS: MORPHINE 2 MG/ML SYRINGE IVP PRN ×2 (08:09→18:36)
[2019-09-07] MEDS: ZITHROMAX 500 MG in SODIUM CHLORIDE 250 ML IV SCH (08:09)
[2019-09-07] MEDS: ROCEPHIN 1 GM/50 ML D5W 1 GM/50 ML BAG IV SCH (10:54)
[2019-09-07] MEDS: ZOFRAN ODT PO PRN ×2 (11:56→21:09)
--- NOTE | 2019-09-07 14:25 | CT ---
EXAM: CT THORAX HISTORY: Multifocal pneumonia. TECHNIQUE: CT thorax without intravenous contrast. Multiplanar images presented. COMPARISON: 09/06/2019 FINDINGS: Normal heart size. No pericardial effusion. Thoracic aorta is within normal limits. Limited evalua tion of the mediastinum and hilar structures without the administration of intravenous contrast agent . No gross mediastinal or hilar lymphadenopathy. There are moderate patchy areas of consolidation bilaterally most noted in the bases although to a le sser degree in the lower aspect of the right upper lobe. These infiltrates have worsened since previ ous exam and are consistent with pneumonia. There is no central vascular congestion, pleural fluid o r pneumothorax. Bones reveal minimal degenerative endplate changes of the [id number] thoracic spine. IMPRESSION: There are moderate patchy areas of consolidation bilaterally most noted in the bases alth ough to a lesser degree in the lower aspect of the right upper lobe. These infiltrates have worsened since previous exam and are consistent with pneumonia.
[2019-09-07] MEDS: ZYVOX PO SCH (21:09)
[2019-09-08] MEDS: SODIUM CHLORIDE 1,000 ML IV SCH (00:27)
[2019-09-08] MEDS: MORPHINE 2 MG/ML SYRINGE IVP PRN ×2 (00:27→09:38)
[2019-09-08] MEDS: NORCO 7.5-325 PO SCH ×2 (02:42→10:45)
[2019-09-08 06:05] VITALS: BP 123/76; TEMP 98.6
[2019-09-08 06:10] LABS: HEMATOCRIT 35.1 % (42.0-52.0)
--- NOTE | 2019-09-08 07:32 | PCM.PROG ---
Date Seen by Provider: 09/08/19 Time Seen by Provider: 07:05 Subjective: HD #3 Abx Day #3 for Rocephin 1 Gram daily, zithromax 500mg daily, Abx Day #2 for linezolid. Sputum cultures ordered and pending. Urine pneumonia Ag are pending. Blood cultures are pending. This am he is improved, vitals are stable and he is feeling better. His am labs showed a drastic drop in his WBC from 20.42 yesterday to 9.49, Hgb mild drop from 12.3 to 11.9 and plt drop from 339 to 292 again may be dilutional. He is only on maintenance fluids of 110ml/hr based on weight. CMP this am was normal and stable. Calcium appeared low but corrected to 8.9 based on alb of 3.33. AST/ALT remain okay. His Ddimer tripled from admit despite negative PE in his CT PE protocol on 09/06/19. He has pain in left anterior chest, used morphin a few times yesterday but overall better. He is tolerating PO now, full meals, full liquid and I can likely change him to fully PO abx today. His Sars-Cov-2 testing returned negative last night. I spent 1 hour on the phone with the state commander [employer], [facility] medical claims analyst and one of the lead Infectious disease providers at [facility] and relayed the patient history to them. Per their recommendations (and mine), the patient has likely moved from [employer] infection to pulmonary infection and the test was likely false negative. We discussed options and since he is not currently hypoxic, currently improving that they would recommend discharge in next 24-48 hours if he continues to remain stable. I requested retesting and they felt that this was a good idea. He agreed to lovenox yesterday, which I will likely continue for the next 7 days. My plan is to d/c him either this PM or tomorrow am, pending results of Sars-Cov-2 testing 2.0. I have talked with his and she will get tested today as she works in congregate living facility. I have ordered a repeat Ddimer for this am. Radiology called and notified me that w/o pain in bilateral legs and only + ddimer that they will not be able to US his legs. I requested them to do his left UE then and they will do that this am. He has had some persistent nausea, this is controlled with zofran. He did rest well overnight. Telemetry now NSR all the time. He had very dark thick urine yesterday ?myoglobin that has since resolved and now clear urine. He has no urinary symptoms, no BM during hospital stay suggesting diarrhea is resolving. Again, as per recommendations of medical claims analyst of ID, this patient has COVID-19 and should be treated as such, despite a negative Sars-Cov-2 test. Since he is day 12-14 now of symptoms per /patient, he is likely through the most concerning portion of the illness and he can reasonably be discharged if maintaining oxygen without assistive devices. Discussed LDH elevated, Ddimer elevated, CT with multifocal pneumonia 12-14 day symptoms, CRP 104 suggests patient has this and we will be considering him as a positive. Talked with local [facility] and he is now a presumptive positive. to be tested. Radiology provider and I discussed this case this am as well. He thought about Covid-[address] scan and felt it had some features but others bacterial pneumonia. He agreed that it cannot be r/o based on imaging. I noted I have several features consistent with findings of COVID-19 to include elevated LDH, elevated D-dimer (despite negative CT PE protocol and negative LUE Doppler and no leg symptoms). He is now on 3 abx to cover for MRSA as well as CAP. No risk factors for psuedomonas but + risks factors for MRSA based on recent viral illness 12-14 days. REVIEW OF SYMPTOMS: (Positives bolded) General: weight loss, fever, chills, night sweats, fatigue, appetite loss (Resolved) HEENT: blurry vision, eye pain, eye discharge, dry eyes, decreased vision, sore throat tinnitus, bloody nose, hearin gloss, sinus pain/pressure, ear pain/pressure. Respiratory: shortness of breath, cough, hemoptysis, wheezing, pleurisy, SPUTUM PRODUCTION Cardiovascular: chest pain (left infraclavicular), Tenderness to palpation. ?costochondral pain vs muscular pain from coughing/strain of intercostals, PND, palpitation, edema, orthopnea (Resolved), syncope, swelling of extremities Gastro: Nausea, vomiting (RESOLVED), diarrhea (RESOLVED), hematemesis, abdominal pain, constipation Genito: hematuria, dysuria, glycosuria, hesitancy, frequency, incontinence Musckelo: Arthralgia, myalgia, muscle weakness, joint swelling, Skin: rash, pruritis, sores, nail changes, skin thickening, change in wart/mole, itching, rash, new lesions, pruritus, nail changes Neuro: Headache generalized 3/10 non radiating, no photophobia. , Migraine, numbness, ataxia, tremor, vertigo, weakness, memory loss, Irritability, dizziness Endocrine: excessive thirst, polyuria, cold intolerance, heat intolerance, goiter Psychiatric: depression, anxiety, anti-depressants, alcohol abuse, drug abuse, insomnia, change in sleep pattern and mood changes Heme/lymph: easy bruising, bleeding gums, blood clots, swollen glands, lymphedema, Allergic/immune: allergic rhinitis, hay fever, asthma, hives Objective: Vital Signs - 24 hr 09/07/19 09:56 09/07/19 14:00 09/07/19 20:00 Temperature Pulse Rate 85 Pulse Rate [Apical] 88 Respiratory Rate 18 18 Blood Pressure 118/80 O2 Sat by Pulse Oximetry 96 99 98 09/07/19 21:21 09/08/19 06:00 Temperature 98.8 F 98.6 F Pulse Rate 89 77 Pulse Rate [Apical] Respiratory Rate 18 18 Blood Pressure 131/95 H 123/76 O2 Sat by Pulse Oximetry 98 99 Constitutional: Appearance- Better today, less pain, well rested. Still w/ active pain in left pec/intercostals in the infraclavicular region. Mood is better. No respiratory distress, RR is normal, HR is normal, BP is normal, vitals are normal/stable. Orientation- Oriented x 3, alert Build and Nutrition- [normal] General- Patient is angry, irritable, profane, semi-cooperative with the interview and exam. Was rude to staff. Refused lovenox. Integumentary: General-No rashes, ulcers or lesions. Palpation- Normal skin moisture/turgor. Skin is warm to touch, appropriate. Capillary refill is normal bilateral Upper and lower extremity. ENMT: Nasal mucosa- No bleeding noted despite [employer] swab last pm. Turbinates boggy erythematous. Lips- normal color, moist without cracks/lesions Oral Cavity/Palate- hard/soft palate intact without lesions, oral mucosa pink and moist. Dentition assessed [and poor]. Tongue normal midline. Oropharynx- no pharyngeal erythema, Uvula midline. No post nasal drip. No exudate. Salivary glands- Non tender to palpation CHEST/LUNG: Inspection- symmetric chest wall no pectus deformity. Tender along left pectoralis and into bicep. Unchanged to perhaps mildly less tender. No tenderness at bicep insertion. No tenderness at sternal border. Reproducible chest wall pain may still be ?intercostal strain, costochondritis, pectoralis strain. No increased effort, no accessory muscle use. Auscultation- Breath sounds diminished throughout all lung sewell persist but again, better aeration today when compared to yesterday. tracheal sounds, bronchial sounds overlying sternum, Bronchovessicular sounds between scapulae posteriorly, vessicular william ath sounds auscultated and coarse. He has wheezing scattered LLL and RLL but improved in upper lobes. He continues to cough up quite a bit of sputum. Culture ordered. Lungs appear to be improving today. Adventitious sounds- wheezes, rales/crackles still bilaterally, rhonchi. bilaterally. CARDIOVASCULAR: Carotid artery- normal, no bruits or abnormal pulsations. Jugul ar vein- no pulsations. Palpation/Percussion- Normal PMI, no palpable thrill Auscultation- Regular rate and rhythm. No murmur noted in sitting, supine positions. Extremities- no digital clubbing, cyanosis, edema, increased warmth. ABDOMEN: Inspection- normal and no visible pulsations. Normal contour. Auscultation- Bowel sounds normal, no abdominal bruits. Palpation/Percussion- soft, non-tender, no rebound tenderness, no rigidity (guarding), no jar tenderness, no masses. Liver-no hepatomegaly, Spleen no splenomegaly, Hernias- none. Rectal not examined. Peripheral Vascular: Upper extremity Left- Normal temperature with pink nailbeds and no ulcerations. Upper extremity Right- Normal temperature with pink nailbeds and no ulcerations. Lower extremity- Normal temperature with pink nailbeds and no ulcerations. DP pulses 2+ bilaterally. Pedal hair intact. Normal capillary refill. Edema- No edema. Musculoskeletal: Generalized-No generalized swelling or edema of extremities, no digital clubbing or cyanosis, neurovascularly intact all four extremities. Upper extremity- Symmetrical posture. No visible deformity. Normal sensation along medial and lateral upper extremity proximally and distally. NO tenderness overlying shoulder, lateral/medial epicondyle. [employer] Estimator 5/5 and strength 5/5 bilateral UE. Elbow palpated, no tenderness overlying olecranon. Normal supination, pronation to active/passive ROM and to resisted rotation. Bicep insertion/tricep insertion appear normal without obvious pathology. Normal wrist ROM bilaterally. Normal hand movement, intrinsic muscles of hands normal. No tenderness to palpation of hands/wrists/elbows. Normal shoulder ROM. Bicep tendon insertion not tender. Neurological: General- Moves all 4 extremities symmetrically. Symmetrical face and body posture. Cranial nerves- individually evaluated II-XII and intact. PERRLA, Normal EOMI, visual/special senses appear intact, Face is symmetrical and normal sensation/movement, normal tongue, normal strength/posture of neck musculature. Reflexes- intact bilateral UE, [employer] Estimator 5/5. Benavides negative. Neuropsych: Oriented- Person, place, time. (AAOx3), Mood/affect- markedly better, stable, normal and baseline. able to articulate well. Speech- normal tone, normal rate, normal volume. Thought content- normal, goal oriented to go home. Associations- no SI/HI, I asked how he felt compared to yesterday and he said much better. He reports no hallucinations, delusions, obsessions. Judgment/insight- Appropriate. Lymphatic: Head/Neck- normal size and non tender to palpation. Axillary- normal size and non tender to palpation. Femoral and Inguinal- normal size and non tender to palpation. Laboratory Results - last 24 hr 09/06/19 09/07/19 09/07/19 18:40 10:50 16:49 WBC RBC Hgb Hct MCV MCH MCHC RDW Coeff of Gerard Plt Count Immature Gran % (Auto) Neut % (Auto) Lymph % (Auto) Ness % (Auto) Eos % (Auto) Baso % (Auto) Immature Gran # (Auto) Neut # (Auto) Lymph # (Auto) Ness # (Auto) Eos # (Auto) Baso # (Auto) Sodium Potassium Chloride Carbon Dioxide Anion Gap BUN Creatinine Estimated GFR (MDRD) BUN/Creatinine Ratio Glucose Calcium Ferritin Total Bilirubin AST ALT Alkaline Phosphatase Lactate Dehydrogenase 274 H Total Creatine Kinase 180.3 H CK-MB (CK-2) 1.880 CK-MB (CK-2) % 1.0400 Troponin I < 0.012 Total Protein Albumin Globulin Albumin/Globulin Ratio D-Dimer 604.82 H 09/07/19 09/08/19 09/08/19 16:49 06:00 06:00 WBC 9.49 D RBC 3.96 L Hgb 11.9 L Hct 35.1 L MCV 88.6 MCH 30.1 MCHC 33.9 RDW Coeff of Gerard 11.9 Plt Count 292 Immature Gran % (Auto) 0.5 Neut % (Auto) 73.7 Lymph % (Auto) 18.9 Ness % (Auto) 5.8 Eos % (Auto) 0.7 Baso % (Auto) 0.4 Immature Gran # (Auto) 0.1 Neut # (Auto) 7.0 H Lymph # (Auto) 1.8 Ness # (Auto) 0.6 Eos # (Auto) 0.1 Baso # (Auto) 0.0 Sodium 139.6 Potassium 3.67 Chloride 107.5 H Carbon Dioxide 24.8 Anion Gap 10.97 BUN 5.4 L Creatinine 0.66 Estimated GFR (MDRD) 143.00 BUN/Creatinine Ratio 8.18 Glucose 94.1 Calcium 8.34 L Ferritin 290.00 Total Bilirubin 0.31 AST 30.2 ALT 17.8 Alkaline Phosphatase 97.7 Lactate Dehydrogenase Total Creatine Kinase CK-MB (CK-2) CK-MB (CK-2) % Troponin I Total Protein 6.39 Albumin 3.33 L Globulin 3.06 Albumin/Globulin Ratio 1.[address] D-D[address] CT chest without contrast 09/08/19: IMPRESSION: There are moderate patchy areas of consolidation bilaterally most noted in the bases although to a lesser degree in the lower aspect of the right upper lobe. These infiltrates have worsened since previous exam and are consistent with pneumonia. Sars-Cov-2: negative. (1) Multifocal pneumonia: Status: Acute Code(s): J18.9 - Pneumonia, unspecified organism SNOMED Code(s): 446787828 (2) SARS-associated coronavirus infection: Status: Acute Code(s): B97.21 - SARS-associated coronavirus as the cause of diseases classified elsewhere SNOMED Code(s): 108397731 (3) SIRS (systemic inflammatory response syndrome): Status: Acute Code(s): R65.10 - Systemic inflammatory response syndrome (SIRS) of non-infectious origin without acute organ dysfunction SNOMED Code(s): 949070240 (4) Tobacco use: Status: Acute Code(s): Z72.0 - Tobacco use SNOMED Code(s): 345893204 (5) Anterior chest wall pain: Status: Acute Code(s): R07.1 - Chest pain on breathing SNOMED Code(s): 270606439 Plan: Multifocal Pneumonia: CT yesterday showed worsening consolidation/infiltrates, CRP returned 104, LDH was elevated, Ddimer is now elevated. BC pending. Sputum culture ordered. I talked with medical claims analyst for [facility] and he feels based on presentation/symptoms/labs that he likely has Sars-Cov-2 infection/COVID 19 and likely secondary bacterial infection as possible. This am I discussed ddx with patient. US of JUSTEN completed and no DVT visible by me as tech was doing the study. Repeat Ddimer and LDH today, awaiting CRP #2. DDx still w/ CAP (viral/flu, bacterial), now considering MRSA pneumonia due to viral process over last 12-14 days and on linezolid to continue outpatient for total of 5 days of abx. We have considered PE (negative on 09/05), clinically improving. COVID-19 remains very high on ddx as well and he is being treated as a presumptive positive with false negative testing. 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 Chest pain super ficially along left subclavicular region stable with IV morphine. trapezius related pain is better/nearly resolved. He denied any illict substance use again today, UDS in hospital was negative. He met SIRS criteria at admit, but vitals are stable. RR normal at 18, pulse 77 and normal. Blood cultures negative 24 hours. CRP #1 markedly elevated at 104, CRP #2 pending. Procalc normal, Lactic acid negative, LDH was +. Ferritin within normal range was not retested. Urine tests for antigens to legionella and strep pneumonia remain pending as send outs. After review of imaging/labs, multifocal pneumonia with presumptive COVID-19 positive remains most likely. Tolerated gentle hydration at 110 ml/min of NS. telemetry stable. He is now on Lovenox for DVT prophy and we will continue this for total of 7 days based on elevated D-dimer. HD #3, ABX dAY #3 FOR ROCEPHIN 1 G daily and azithromax 500 daily. HD #2 for linezolid 600mg BID PO. - Admit inpatient SCU plan D/C today. - Telemetry - LABS: - RSV/FLU negative 09/06/19. - Sars-Cov2 ([id number] state test code): Negative 09/08/19 presumed false negative - Troponin I/CK: NEGATIVE - Urine ag legionella and S. Pneumonia: PENDING - UDS: NEGATIVE - CBC/CMP: Daily: WBC now normal. Mild anemia. Normal platelet. CMP within normal limits, Ca++ corrects to normal. liver enzymes normal/stable. Alk phos normal. - LDH: Elevated Repeat today - CRP #1 104: CRP #2 pending - Ddimer #1 291 and normal. D-dimer #2 604.82. Ddimer #3 today - Antibiotics: - Azithromycin 500mg daily x 5 days (DAY 3 today) - Rocephin 1 gram daily x 5 days (DAY 3 today) will change to cefdinir at d/c. - Linezolid 600mg BID daily x 5 days (day 2 today) - [place] 7.5/325 for pain. - Morphine 2 q 6 hours for pain - NS 110 Ml/hr. Left shoulder pain/Anterior chest pain: The patient has pain within the left posterior shoulder and along subclavicular region. US today no DVT. Stable with pain medications. I still suspect ?costochondritis, pectoralis strain, intercostal muscle strain on top of his symptoms from coughing. Leukocytosis: Resolved today. WBC normalized. Neutrophil to lymphocyte ratio is 3.3 and back to normal range. DVT prophy: Lovenox 40mg subcut daily ordered, elevated Ddimer. Repeat Ddimer today midlly elevated compared to yesterday. I will assume infection/pneumonia/Sepsis has increased this, but it can be seen in COVID-19 as well. I will cover with 5 days out of hospital lovenox as well. GI prophy: Not indicated at this time. Pain: Back pain, left shoulder pain. Discussed with patient limited use of opiates. Family history of substance abuse. Concern for personal history of substance use. Drug screen negative. I will provide him with 7 days of [place] 7.5/325 TID for pain at d/c. Used morphine in addition in hospital, pain is better. Diet: Normal diet. Tobacco: Cessation discussed today for 2 minutes. We reviewed lifestyle choices and discussed quitting. Ready to quit status discussed. The risks and hazards of continued tobacco abuse were discussed with the patient today and total tobacco cessation as recommended. It was clearly and unambiguously explained that continued tobacco usage will adversely affect overall morbidity and mortality of the patient. Patient was informed that tobacco use can lead to numerous cancers, worsening of cardiovascular and pulmonary systems and that lung damage is often permanent and irreversible. I advised the patient to inform me if any further assistance is requested, as we can offer counseling services, nicotine replacement inhaled, patch, lozenge, gum, or prescription medications to include Chantix or Wellbutrin for assistance. I will reassess the interest in tobacco cessation at the next and all subsequent visits. - Using Nicoderm 21 mg patch daily. Code Status: Full Visitation: NONE due to current COVID-19 Pandemic. Disposition: Current ddx includes multifocal pneumonia, concern for MRSA pneumonia on top of viral pneumonia from historical ?flu vs SARS-COV-2. He is now a presumptive + and we will discharge him likely today after dose 3 of IV abx with 10 day isolation course to be able to leave home again 09/20/19. Entire family should reamin home, shoud not go out. SIRS + on admit, resolved in last 24 hours. Vitals and clinical presentation stable. BC negative 24 hours, sputum cultures pending, Urine ag pending. CRP #2 pending. LDH #2 pending. Ddimer #3 more elevated. COVID-19 testing #1 was negative. Pending #2. Suspect false negative. I will d/c home today. In total >35 minutes spent rounding with patient today. Plan D/C today.
[2019-09-08] MEDS: ROCEPHIN 1 GM/50 ML D5W 1 GM/50 ML BAG IV SCH (08:42)
[2019-09-08] MEDS: ZYVOX PO SCH (08:43)
[2019-09-08] MEDS: LOVENOX SUBCUT SCH (08:43)
--- NOTE | 2019-09-08 08:46 | US ---
EXAM: Left upper extremity venous Doppler History: Left arm pain, elevated D-dimer. Technique: Multiple sonographic images through the left upper extremity were obtained. Color duplex Doppler was used to interrogate vascular flow. Findings: The left internal jugular, subclavian, axillary, brachial, cephalic, basilic, radial and ulnar veins demonstrate spontaneous flow with normal compression and normal augmentation. Impression: No sonographic evidence for deep venous thrombosis.
[2019-09-08] MEDS: NICODERM 21 MG TD SCH (09:20)
[2019-09-08] MEDS: ZITHROMAX 500 MG in SODIUM CHLORIDE 250 ML IV SCH (09:34)
--- NOTE | 2019-09-08 11:14 | PCM.DC ---
Final Diagnosis: 1. Presumptive Positive SARS-COV-2/COVID 19 (Pending secondary testing) 2. Multifocal pneumonia: Agent Unknown (Sputum culture and Blood cultures) 3. Elevated D-dimer 4. Elevated CRP >100 5. Elevated LDH 6. Leukocytosis 7. Lymphocytopenia 8. SIRS + 9. Nicotine use disorder 10. Shortness of breath 11. Flu like/Starks Like symptoms. (1) Multifocal pneumonia: Status: Acute Code(s): J18.9 - Pneumonia, unspecified organism SNOMED Code(s): 092786160 (2) SIRS (systemic inflammatory response syndrome): Status: Acute Code(s): R65.10 - Systemic inflammatory response syndrome (SIRS) of non-infectious origin without acute organ dysfunction SNOMED Code(s): 242542066 (3) Tachycardia: Status: Acute Code(s): R00.0 - Tachycardia, unspecified SNOMED Code(s): 2240724 (4) Leukocytosis: Status: Acute Code(s): D72.829 - Elevated white blood cell count, unspecified SNOMED Code(s): 938031569 (5) Tachypnea: Status: Acute Code(s): R06.82 - Tachypnea, not elsewhere classified SNOMED Code(s): 982668537 (6) Tobacco use: Status: Acute Code(s): Z72.0 - Tobacco use SNOMED Code(s): 933486147 (7) Anterior chest wall pain: Status: Acute Code(s): R07.1 - Chest pain on breathing SNOMED Code(s): 023347242 (8) Elevated d-dimer: Status: Acute Code(s): R79.1 - Abnormal coagulation profile SNOMED Code(s): 923948823 (9) Elevated C-reactive protein: Status: Acute Code(s): R79.82 - Elevated C-reactive protein (CRP) SNOMED Code(s): 358470013098827 (10) Elevated LDH: Status: Acute Code(s): R74.0 - Nonspecific elevation of levels of transaminase and lactic acid dehydrogenase [LDH] SNOMED Code(s): 208794147 Reason for Hospitalization: Shortness of breath Cough COVID-19 Like symptoms Tobacco use Anterior Chest Wall Pain CT scan showing multifocal pneumonia Prognosis at Discharge: Stable Vitals, improved chest wall pain, decreased SOA, afebrile Condition at Discharge: Stable Vitals, improved chest wall pain, decreased SOA, afebrile Medications at Discharge: Ambulatory Orders Medication Instructions Recorded albuterol sulfate [Ventolin HFA] 2 puff INHALATION Q6H PRN #18 gm 09/08/19 azithromycin 500 mg PO DAILY 2 Days #2 tab 09/08/19 cefdinir 300 mg PO BID #4 cap 09/08/19 enoxaparin [Lovenox] 40 mg SUBCUT DAILY 7 Days #7 ml 09/08/19 hydrocodone-acetaminophen 1 tab PO Q8H 5 Days #15 tab 09/08/19 linezolid 600 mg PO BID 4 Days #9 tab 09/08/19 nicotine 1 patch TRANSDERMAL DAILY 14 Days 09/08/19 #14 each ondansetron 4 mg PO Q8H PRN 5 Days #10 tab 09/08/19 Lab/Diagnostics: Laboratory Tests 09/06/19 09/06/19 09/06/19 15:47 18:08 18:30 WBC RBC Hgb Hct MCV MCH MCHC RDW Coeff of Gerard Plt Count Immature Gran % (Auto) Neut % (Auto) Lymph % (Auto) [place] % (Auto) Eos % (Auto) Baso % (Auto) Immature Gran # (Auto) Neut # (Auto) Lymph # (Auto) [place] # (Auto) Eos # (Auto) Baso # (Auto) Puncture Site Rrad O2 Saturation 97.0 ABG pH 7.448 ABG pCO2 32.1 L ABG pO2 85.0 ABG HCO3 22.2 ABG Total CO2 23 ABG Base Excess -2 Leno Test + FiO2 % 21.0 Sodium Potassium Chloride Carbon Dioxide Anion Gap BUN Creatinine Estimated GFR (MDRD) BUN/Creatinine Ratio Glucose Lactic Acid Calcium Ferritin 300.00 Total Bilirubin AST ALT Alkaline Phosphatase Lactate Dehydrogenase Total Creatine Kinase CK-MB (CK-2) CK-MB (CK-2) % Troponin I Total Protein Albumin Globulin Albumin/Globulin Ratio Procalcitonin D-Dimer Urine Opiates Screen Ur Oxycodone Screen Urine Methadone Screen Ur Propoxyphene Screen Ur Barbiturates Screen U Tricyclic Antidepress Ur Phencyclidine Scrn Ur Amphetamine Screen U Methamphetamines Scrn U Benzodiazepines Scrn Urine Cocaine Screen U Cannabinoids Screen Influ A Molecular Assay Negative by naat Influ B Molecular Assay Negative by naat RSV Antigen Negative by naat Miscellaneous Test 09/06/19 09/06/19 09/06/19 18:40 18:40 18:50 WBC RBC Hgb Hct MCV MCH MCHC RDW Coeff of Gerard Plt Count Immature Gran % (Auto) Neut % (Auto) Lymph % (Auto) [place] % (Auto) Eos % (Auto) Baso % (Auto) Immature Gran # (Auto) Neut # (Auto) Lymph # (Auto) [place] # (Auto) Eos # (Auto) Baso # (Auto) Puncture Site O2 Saturation ABG pH ABG pCO2 ABG pO2 ABG HCO3 ABG Total CO2 ABG Base Excess Leno Test FiO2 % Sodium Potassium Chloride Carbon Dioxide Anion Gap BUN Creatinine Estimated GFR (MDRD) BUN/Creatinine Ratio Glucose Lactic Acid Calcium Ferritin Total Bilirubin AST ALT Alkaline Phosphatase Lactate Dehydrogenase 274 H Total Creatine Kinase 332.1 H CK-MB (CK-2) 5.180 H* CK-MB (CK-2) % 1.5500 Troponin I < 0.012 Total Protein Albumin Globulin Albumin/Globulin Ratio Procalcitonin 0.15 D-Dimer Urine Opiates Screen Ur Oxycodone Screen Urine Methadone Screen Ur Propoxyphene Screen Ur Barbiturates Screen U Tricyclic Antidepress Ur Phencyclidine Scrn Ur Amphetamine Screen U Methamphetamines Scrn U Benzodiazepines Scrn Urine Cocaine Screen U Cannabinoids Screen Influ A Molecular Assay Influ B Molecular Assay RSV Antigen Miscellaneous Test 09/06/19 09/06/19 09/06/19 18:51 22:45 22:45 WBC RBC Hgb Hct MCV MCH MCHC RDW Coeff of Gerard Plt Count Immature Gran % (Auto) Neut % (Auto) Lymph % (Auto) [place] % (Auto) Eos % (Auto) Baso % (Auto) Immature Gran # (Auto) Neut # (Auto) Lymph # (Auto) [place] # (Auto) Eos # (Auto) Baso # (Auto) Puncture Site O2 Saturation ABG pH ABG pCO2 ABG pO2 ABG HCO3 ABG Total CO2 ABG Base Excess Leno Test FiO2 % Sodium Potassium Chloride Carbon Dioxide Anion Gap BUN Creatinine Estimated GFR (MDRD) BUN/Creatinine Ratio Glucose Lactic Acid 1.43 Calcium Ferritin Total Bilirubin AST ALT Alkaline Phosphatase Lactate Dehydrogenase Total Creatine Kinase CK-MB (CK-2) CK-MB (CK-2) % Troponin I Total Protein Albumin Globulin Albumin/Globulin Ratio Procalcitonin D-Dimer Urine Opiates Screen Negative Ur Oxycodone Screen Negative Urine Methadone Screen Negative Ur Propoxyphene Screen Negative Ur Barbiturates Screen Negative U Tricyclic Antidepress Negative Ur Phencyclidine Scrn Negative Ur Amphetamine Screen Negative U Methamphetamines Scrn Negative U Benzodiazepines Scrn Negative Urine Cocaine Screen Negative U Cannabinoids Screen Negative Influ A Molecular Assay Influ B Molecular Assay RSV Antigen Miscellaneous Test Sent to [facility] 09/07/19 09/07/19 09/07/19 02:50 02:50 10:50 WBC 20.42 H RBC 4.00 L Hgb 12.3 L Hct 34.6 L D MCV 86.5 MCH 30.8 MCHC 35.5 H RDW Coeff of Gerard 11.9 Plt Count 339 Immature Gran % (Auto) 0.4 Neut % (Auto) 81.7 H Lymph % (Auto) 11.9 [place] % (Auto) 5.5 Eos % (Auto) 0.2 Baso % (Auto) 0.3 Immature Gran # (Auto) 0.1 Neut # (Auto) 16.7 H Lymph # (Auto) 2.4 [place] # (Auto) 1.1 Eos # (Auto) 0.0 Baso # (Auto) 0.1 Puncture Site O2 Saturation ABG pH ABG pCO2 ABG pO2 ABG HCO3 ABG Total CO2 ABG Base Excess Leno Test FiO2 % Sodium 134.9 Potassium 3.51 Chloride 101.2 Carbon Dioxide 24.0 Anion Gap 13.21 BUN 12.5 Creatinine 0.68 Estimated GFR (MDRD) 138.00 BUN/Creatinine Ratio 18.38 Glucose 123.5 H Lactic Acid Calcium 8.31 L Ferritin Total Bilirubin 0.70 AST 38.9 ALT 21.9 Alkaline Phosphatase 116.0 D Lactate Dehydrogenase Total Creatine Kinase 228.2 H 180.3 H CK-MB (CK-2) 2.740 H 1.880 CK-MB (CK-2) % 1.2000 1.0400 Troponin I < 0.012 < 0.012 Total Protein 6.93 Albumin 3.83 Globulin 3.10 Albumin/Globulin Ratio 1.23 Procalcitonin D-Dimer Urine Opiates Screen Ur Oxycodone Screen Urine Methadone Screen Ur Propoxyphene Screen Ur Barbiturates Screen U Tricyclic Antidepress Ur Phencyclidine Scrn Ur Amphetamine Screen U Methamphetamines Scrn U Benzodiazepines Scrn Urine Cocaine Screen U Cannabinoids Screen Influ A Molecular Assay Influ B Molecular Assay RSV Antigen Miscellaneous Test 09/07/19 09/07/19 09/08/19 16:49 16:49 06:00 WBC 9.49 D RBC 3.96 L Hgb 11.9 L Hct 35.1 L MCV 88.6 MCH 30.1 MCHC 33.9 RDW Coeff of Gerard 11.9 Plt Count 292 Immature Gran % (Auto) 0.5 Neut % (Auto) 73.7 Lymph % (Auto) 18.9 [place] % (Auto) 5.8 Eos % (Auto) 0.7 Baso % (Auto) 0.4 Immature Gran # (Auto) 0.1 Neut # (Auto) 7.0 H Lymph # (Auto) 1.8 [place] # (Auto) 0.6 Eos # (Auto) 0.1 Baso # (Auto) 0.0 Puncture Site O2 Saturation ABG pH ABG pCO2 ABG pO2 ABG HCO3 ABG Total CO2 ABG Base Excess Leno Test FiO2 % Sodium Potassium Chloride Carbon Dioxide Anion Gap BUN Creatinine Estimated GFR (MDRD) BUN/Creatinine Ratio Glucose Lactic Acid Calcium Ferritin 290.00 Total Bilirubin AST ALT Alkaline Phosphatase Lactate Dehydrogenase Total Creatine Kinase CK-MB (CK-2) CK-MB (CK-2) % Troponin I Total Protein Albumin Globulin Albumin/Globulin Ratio Procalcitonin D-Dimer 604.82 H Urine Opiates Screen Ur Oxycodone Screen Urine Methadone Screen Ur Propoxyphene Screen Ur Barbiturates Screen U Tricyclic Antidepress Ur Phencyclidine Scrn Ur Amphetamine Screen U Methamphetamines Scrn U Benzodiazepines Scrn Urine Cocaine Screen U Cannabinoids Screen Influ A Molecular Assay Influ B Molecular Assay RSV Antigen Miscellaneous Test 09/08/19 09/08/19 06:00 06:00 WBC RBC Hgb Hct MCV MCH MCHC RDW Coeff of Gerard Plt Count Immature Gran % (Auto) Neut % (Auto) Lymph % (Auto) [place] % (Auto) Eos % (Auto) Baso % (Auto) Immature Gran # (Auto) Neut # (Auto) Lymph # (Auto) [place] # (Auto) Eos # (Auto) Baso # (Auto) Puncture Site O2 Saturation ABG pH ABG pCO2 ABG pO2 ABG HCO3 ABG Total CO2 ABG Base Excess Leno Test FiO2 % Sodium 139.6 Potassium 3.67 Chloride 107.5 H Carbon Dioxide 24.8 Anion Gap 10.97 BUN 5.4 L Creatinine 0.66 Estimated GFR (MDRD) 143.00 BUN/Creatinine Ratio 8.18 Glucose 94.1 Lactic Acid Calcium 8.34 L Ferritin Total Bilirubin 0.31 AST 30.2 ALT 17.8 Alkaline Phosphatase 97.7 Lactate Dehydrogenase Total Creatine Kinase CK-MB (CK-2) CK-MB (CK-2) % Troponin I Total Protein 6.39 Albumin 3.33 L Globulin 3.06 Albumin/Globulin Ratio 1.08 Procalcitonin D-Dimer 646.82 H Urine Opiates Screen Ur Oxycodone Screen Urine Methadone Screen Ur Propoxyphene Screen Ur Barbiturates Screen U Tricyclic Antidepress Ur Phencyclidine Scrn Ur Amphetamine Screen U Methamphetamines Scrn U Benzodiazepines Scrn Urine Cocaine Screen U Cannabinoids Screen Influ A Molecular Assay Influ B Molecular Assay RSV Antigen Miscellaneous Test CT Chest w/o 09/07/19: IMPRESSION: There are moderate patchy areas of consolidation bilaterally most noted in the bases although to a lesser degree in the lower aspect of the right upper lobe. These infiltrates have worsened since previous exam and are consistent with pneumonia. Chest chest w/ 09/06/19: IMPRESSION: 1. No pulmonary embolus. 2. Multifocal small consolidative, ground-glass and tree-in-bud opacities with peribronchial thickening most compatible with bronchopneumonia. No lobar consolidation Doppler LUE: 09/08/19: Impression: No sonographic evidence for deep venous thrombosis. Blood culture negative 24 hours Pending Tests: Sputum culture Pending LDH #2 CRP #2 Sars COV-2 #2 Education Provided to Patient and Family: 1. Pneumonia 2. Covid-19 3. Smoking cessation 4. Abx education 5. lovenox education Follow-ups: 1. Virtual visit 11:00 on Friday. Discharge Disposition: Home Hospital Course: H+P 29 yr old CM presented to outpatient [facility] clinic 09/06/19 reporting 2 week history of inability to breath, SOA, cough and worsening symptoms. Used robitussin, vicks chest rub, mucinex DM, ibuprofen, albuterol inhaler (from family member), neb treatments from family member as well. He noted that this has steadily worsened with time unto his presentation. Pain in his left anterior chest and could not talk, could not take deep breath and was concerned that he was having NC. He has never felt this miserable in his life. has been sick, not as sick as the patient but sick none the less. Both of them smoke. He notes he has not been smoking as much lately and none in the past 3 days. No known contacts, denied drug use, denied ETOH. HR in clinic was 116 today, RR was 22, he has family history of cardiac disease on father side and has had some HTN at times himself. flu vaccine given this year. Patient was 98% O2 in clinic. He reported SOA, PND, orthopnea, myalgias, N/V/D. He notes vomiting has been sporadic, nausea worse than the emesis. Emesis has been non bloody, mostly after coughing. He was hyperventilating in the room, felt worse symptoms along the left anterior chest and into the left shoulder. Decreased po intake for solids tolerating liquids reasonably. Sx not responding to albuterol/otc meds. I sent him to the hospital for ddimer, cbc, cmp, crp, ct PE protocol as he appeared to have concern for PE based on modified wells criteria. Pain with inspiration, no pain in chest within activity. Denied hemoptysis. Anosmia, dysgusia, noted. Concerning for possible COVID-19 based on the s/sx presented today. He has mild rhinorrhea/post nasal drainage, cough/congestion/myalgias. Every day he has worsened and he is now reporting day 12 ( over phone thought day 10-12). He denied calf pain. Modified well score of 6 points, moderate risk group 16.2% of PE based on ED population of people. Because his score was >4 he had ~28%incidence of PE. I thus ordered CT PE protocol. With his 12 day history of SOA/cough/congestion/VAZQUEZ/N/V/D, risks of PE of 16.2%, back pain, body aches, chills, myalgias, 10-12 day worsening URI chest discomfort, worsening SOA, ANXIETY, TACHYCARDIA, tachypnea, chest pain I sent to hospital for further w/u. We discussed COVID-19, discussed drug use (declined). At around 1630 I found out that WBC 24.69, hgb 14.8, plt 439. Neutrophil 79% and lymphocytes 9.0% (low), Ddimer was normal at 291.63, sodium normal 136.7, K+ normal 3.86, CO221.5, Cr 0.96, glucose 107.1, alk phos 164.3 and mildly elevated. Albumin was normal at 5.07. I personally looked at the CT scan images and saw a multifocal pneumonia with small peripheral regions of consolidation/ground glass process. Regions right middle lobe, right lower lobe and left lower lobe. Allk phos was up, ddimer was normal, AST/ALT normal. I contacted the patient and admitted him to the hospital as inpatient for further w/u. He was relayed to hospital and admitted to SCU. I ordered procalcitonin, lactate, LDH, blood cultures x 2, ferritin (crp ordered earlier), UDS, urine legionella, urine pneumonia, cpk/Troponin, Telemetry and EKG. N:L ratio was 8.8 using %s instead of ANC/ANL. Ordered oral pain meds, started patient on azithromycin/rocephin to cover for community pneumonia and order labs for day 2. ABG completed and showed 7.448/32.1/85/22.2/23. This represented a primary Respiratory Alkalosis with Secondary Metabolic Alkalosis. Lactic acid was normal 1.43, procalcitonin was negative 0.15, ferritin was mid to high normal at 300. Flu was negative, RSV was negative. Sars-COV-2 testing was pending. Troponin, CK and CRP pending. Lovenox ordered (declined by patient, fluids gentle hydration 110ml/hr. Placed on COVID-19 precautions. Discussed nicotine declined. Discussed CLAIR/SCD and declined. MDI PRN for wheezing/cough. HD #2 09/07/19 29 yo CM HD #2 Abx Day #2/5 azithromycin 500 IV daily, Rocephin 1G IV daily. Mood/behavior was rough this am and he had some issues with pain in the anterior chest. I added morphine IV for him due to his pain. Vitals stable. UDS was negative. ST and NSR on telemetry through the night. Still w/o smell/taste. No loose stools. Voiding. Maintenance fluids 110ml/hr continued. Refused lovenox. Discussed again need for this with him. Requesting a nicotine patch. He ultimately agreed to lovenox. He had a critical CKMB of 5.180 and CK of 332.1 last pm and 8 hours later this was improved to 2.74/228.2. Troponin remained negative <0.012 x 2. His WBC improved from 24.69 to 20.42. His hgb dropped a little to 12.3, down from 14.8 and his plt down from 439 to 339. The drop in all cell lines suggests some dilutional effect. His Neutrophil:Lymphocyte ratio is currently 6.9 down from 8.8, again suggesting some improvement. Coughing more, he is coughing up mucus, brown sputum and is feeling somewhat better. CMP stable Sodium 134.9, K+ 3.51, CL 101.2, BUN 12.5, Cr 0.68, glucose 123.5. AST 38.9, ALT 21.9. Repeated CT scan, worsening infiltrates. Ddimer returned elevated, LDH returned elevated and CRP elevated at 104. I called and talked with [facility] virology, [facility] medical observer and infectious disease. Sars-Cov-2 returned negative. False negative likely, suspected positive is most likely at this time. Ddimer returned >600. Ordered US of LUE due to pain in left anterior chest. Pain improving, vitals stable, coughing more. I added linezolid to cover for MRSA pneumonia in light of prolonged viral process. HD #3. 4/01/19 HD #3 Abx Day #3 for Rocephin 1 Gram daily, zithromax 500mg daily, Abx Day #2 for linezolid 600 BID. Sputum cultures ordered and pending. RUBYE aureliaer returned negative. Urine pneumonia Ag are pending. Blood cultures negative 24 hours but final pending. This am, day of d/c he was improved, vitals are stable and he felt markeldy better. His am labs showed a drastic drop in his WBC from 20.42 yesterday to 9.49, Hgb mild drop from 12.3 to 11.9 and plt drop from 339 to 292 again may be dilutional. He is only on maintenance fluids of 110ml/hr based on weight. CMP this am was normal and stable. Calcium appeared low but corrected to 8.9 based on alb of 3.33. AST/ALT remain okay. His Ddimer tripled from admit despite negative PE in his CT PE protocol on 09/06/19. He has pain in left anterior chest, used morphin a few times yesterday but overall better. He is tolerating PO now, full meals, full liquid and I can likely change him to fully PO abx today. His Sars-Cov-2 testing returned negative last night. I spent 1 hour on the phone with the state alligator hunter, [facility] medical observer and one of the lead Infectious disease providers at [facility] and relayed the patient history to them. Per their recommendations (and mine), the patient has likely moved from ACO COORDINATOR infection to pulmonary infection and the test was likely false negative. We discussed options and since he is not currently hypoxic, currently improving that they would recommend discharge in next 24-48 hours if he continues to remain stable. I requested retesting and they felt that this was a good idea. He agreed to lovenox yesterday, which I will likely continue for the next 7 days. My plan is to d/c him either this PM or tomorrow am, pending results of Sars-Cov-2 testing 2.0. I have talked with his and she will get tested today as she works in congregate living facility. I have ordered a repeat Ddimer for this am. Radiology called and notified me that w/o pain in bilateral legs and only + ddimer that they will not be able to US his legs. I requested them to do his left UE then and they will do that this am. He has had some persistent nausea, this is controlled with zofran. He did rest well overnight. Telemetry now NSR all the time. He had very dark thick urine yesterday ?myoglobin that has since resolved and now clear urine. He has no urinary symptoms, no BM during hospital stay suggesting diarrhea is resolving. Again, as per recommendations of medical observer of [facility], this patient has COVID-19 and should be treated as such, despite a negative Sars-Cov-2 test. Since he is day 12-14 now of symptoms per /patient, he is likely through the most concerning portion of the illness and he can reasonably be discharged if maintaining oxygen without assistive devices. Discussed LDH elevated, Ddimer elevated, CT with multifocal pneumonia 12-14 day symptoms, CRP 104 suggests patient has this and we will be considering him as a positive. Talked with local [facility] and he is now a presumptive positive. to be tested. Radiology provider and I discussed this case this am as well. He thought about Covid-[address] scan and felt it had some features but others bacterial pneumonia. He agreed that it cannot be r/o based on imaging. I noted I have several features consistent with findings of COVID-19 to include elevated LDH, elevated D-dimer (despite negative CT PE protocol and negative LUE Doppler and no leg symptoms). He is now on 3 abx to cover for MRSA as well as CAP. No risk factors for psuedomonas but + risks factors for MRSA based on recent viral illness 12-14 days. He was discharged with 2 more days of azithromycin, 2 more days of cedfinir and 4 more days of linezolid. I discharged him with a week of lovenox as well. Education given to patient regarding tobacco cessation, pneumonia, azithromycin, linezolid, cefdinir. He has appt with me friday 11am for telehealth visit. 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 He agreed with plan. He was instructed to not go out, to have others bring food/items. Clinically improving but labs/imaging support presumptive positive. Patient is now a Presumptive + for COVID-19. Day of d/c physical exam: Constitutional: Appearance- Better today, less pain, well rested. Still w/ active pain in left pec/intercostals in the infraclavicular region. Mood is better. No respiratory distress, RR is normal, HR is normal, BP is normal, vitals are normal/stable. Orientation- Oriented x 3, alert Build and Nutrition- [normal] General- Patient is angry, irritable, profane, semi-cooperative with the interview and exam. Was rude to staff. Refused lovenox. Integumentary: General-No rashes, ulcers or lesions. Palpation- Normal skin moisture/turgor. Skin is warm to touch, appropriate. Capillary refill is normal bilateral Upper and lower extremity. ENMT: Nasal mucosa- No bleeding noted despite ACO COORDINATOR swab last pm. Turbinates boggy erythematous. Lips- normal color, moist without cracks/lesions Oral Cavity/Palate- hard/soft palate intact without lesions, oral mucosa pink and moist. Dentition assessed [and poor]. Tongue normal midline. Oropharynx- no pharyngeal erythema, Uvula midline. No post nasal drip. No exudate. Salivary glands- Non tender to palpation CHEST/LUNG: Inspection- symmetric chest wall no pectus deformity. Tender along left pectoralis and into bicep. Unchanged to perhaps mildly less tender. No tenderness at bicep insertion. No tenderness at sternal border. Reproducible chest wall pain may still be ?intercostal strain, costochondritis, pectoralis strain. No increased effort, no accessory muscle use. Auscultation- Breath sounds diminished throughout all lung sewell persist but again, better aeration today when compared to yesterday. tracheal sounds, bronchial sounds overlying sternum, Bronchovessicular sounds between scapulae posteriorly, vessicular breath sounds auscultated and coarse. He has wheezing scattered LLL and RLL but improved in upper lobes. He continues to cough up quite a bit of sputum. Culture ordered. Lungs appear to be improving today. Adventitious sounds- wheezes, rales/crackles still bilaterally, rhonchi. bilaterally. CARDIOVASCULAR: Carotid artery- normal, no bruits or abnormal pulsations. Jugular vein- no pulsations. Palpation/Percussion- Normal PMI, no palpable thrill Auscultation- Regular rate and rhythm. No murmur noted in sitting, supine positions. Extremities- no digital clubbing, cyanosis, edema, increased warmth. ABDOMEN: Inspection- normal and no visible pulsations. Normal contour. Auscultation- Bowel sounds normal, no abdominal bruits. Palpation/Percussion- soft, non-tender, no rebound tenderness, no rigidity (guarding), no jar tenderness, no masses. Liver-no hepatomegaly, Spleen no splenomegaly, Hernias- none. Rectal not examined. Peripheral Vascular: Upper extremity Left- Normal temperature with pink nailbeds and no ulcerations. Upper extremity Right- Normal temperature with pink nailbeds and no ulcerations. Lower extremity- Normal temperature with pink nailbeds and no ulcerations. DP pulses 2+ bilaterally. Pedal hair intact. Normal capillary refill. Edema- No edema. Musculoskeletal: Generalized-No generalized swelling or edema of extremities, no digital clubbing or cyanosis, neurovascularly intact all four extremities. Upper extremity- Symmetrical posture. No visible deformity. Normal sensation along medial and lateral upper extremity proximally and distally. NO tenderness overlying shoulder, lateral/medial epicondyle. Chain Mortiser Operator 5/5 and strength 5/5 bilateral UE. Elbow palpated, no tenderness overlying olecranon. Normal supination, pronation to active/passive ROM and to resisted rotation. Bicep insertion/tricep insertion appear normal without obvious pathology. Normal wrist ROM bilaterally. Normal hand movement, intrinsic muscles of hands normal. No tenderness to palpation of hands/wrists/elbows. Normal shoulder ROM. Bicep tendon insertion not tender. Neurological: General- Moves all 4 extremities symmetrically. Symmetrical face and body posture. Cranial nerves- individually evaluated II-XII and intact. PERRLA, Normal EOMI, visual/special senses appear intact, Face is symmetrical and normal sensation/movement, normal tongue, normal strength/posture of neck musculature. 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 Benavides negative. Neuropsych: Oriented- Person, place, time. (AAOx3), Mood/affect- markedly better, stable, normal and baseline. able to articulate well. Speech- normal tone, normal rate, normal volume. Thought content- normal, goal oriented to go home. Associations- no SI/HI, I asked how he felt compared to yesterday and he said much better. He reports no hallucinations, delusions, obsessions. Judgment/insight- Appropriate. Plan: 1. D/C today to home. 2. Continue 48 hours azithromycin 3. Continue 48 hours of cefdinir 4. Continue 4 days of linezolid 5. Continue 1 week of lovenox 6. Diet ad jas 7. Acitivity ad jas 8. Await pending labs : CRP, LDH, Sars-Cov-2. 9. Consider repeat CT scan in 3-5 days. >30 minutes spent on discharge today.
== END 2019-09-08 11:09 | disposition home or self-care (01) | DRG 194 ==
LOC: SCU 17:21
PROVIDERS: ADMIT Family Medicine; ATTEND Family Medicine
DX: R65.10 Systemic inflammatory response syndrome (SIRS) of non-infectious origin without acute organ dysfunction; R51 Headache; M79.10 Myalgia, unspecified site; R79.1 Abnormal coagulation profile; R19.7 Diarrhea, unspecified; R53.1 Weakness; M25.512 Pain in left shoulder; R79.82 Elevated C-reactive protein (CRP); R07.89 Other chest pain; R74.0 Nonspecific elevation of levels of transaminase and lactic acid dehydrogenase [LDH]; R05 Cough; Z03.818 Encounter for observation for suspected exposure to other biological agents ruled out; R00.0 Tachycardia, unspecified; R42 Dizziness and giddiness; M54.9 Dorsalgia, unspecified; F32.9 Major depressive disorder, single episode, unspecified; R10.9 Unspecified abdominal pain; R06.02 Shortness of breath; R07.1 Chest pain on breathing; D72.829 Elevated white blood cell count, unspecified; R43.2 Parageusia; F41.9 Anxiety disorder, unspecified; J18.9 Pneumonia, unspecified organism; R43.0 Anosmia; R11.2 Nausea with vomiting, unspecified; F17.210 Nicotine dependence, cigarettes, uncomplicated